=== PATIENT | female | born 1960 | race Caucasian/White ===

== ENCOUNTER 2019-10-07 20:50 | Inpatient (IN) | payer OTHER ==
[~2019-10-07] VITALS: Ht 167.6 cm; Wt 159.7 kg
--- NOTE | 2019-10-07 21:30 | NUR ---
PT BIB PA WITH A C/O PAIN AND DRAINAGE FROM SX WOUND SITE. PT HAD RLQ HERNIA REPAIR/SX 4 YEARS AGO. PT'S WOUND IS STILL OPEN AND HAS PACKING. PURULENT DRAINAGE NOTED. CULTURE TAKEN OF WOUND AND SENT TO LAB. 22G IV STARTED IN RT HAND. BLOOD WAS DRAWN AND SENT TO LAB. BLOOD CULTURES X 2 DRAWN. PT WAS ON THE BEDPABN AND A URINE SAMPLE WAS SENT TO LAB. PT WAS PLACED ON THE MONITOR AND CONTINUOUS PULSE OX.
[2019-10-07 21:51] LABS: APPEARANCE,URINE Slightly Cloudy (CLEAR); BILIRUBIN,URINE Negative (NEGATIVE); BLOOD, URINE Moderate Ery/uL (NEGATIVE); COLOR,URINE Yellow (YELLOW); KETONES,URINE Trace (NEGATIVE); LEUKOCYTE ESTERASE ,URINE Small (NEGATIVE); NITRITE, URINE Negative (NEGATIVE); PH,URINE 6.5 (5.0-8.0); PROTEIN,URINE 100 mg/dl (NEGATIVE); UGLUCOSE Negative (NEGATIVE); UROBILINOGEN,URINE 0.2 EU/dL (0.2)
[2019-10-07 21:51] LABS: BASOPHILS % (AUTO) 0.7 % (0.0-2.0); EOSINOPHILS % (AUTO) 6.8 % (0.0-6.0); HEMATOCRIT 40 % (33-45); HEMOGLOBIN 12.7 g/dL (11.5-14.8); LYMPHOCYTES # (AUTO) 1.4 /CMM (0.8-4.8); LYMPHOCYTES % (AUTO) 21.2 % (20.0-44.0); MEAN CORPUSCULAR HGB CONC 32 g/dl (31.0-36.0); MEAN CORPUSCULAR VOLUME 67 fL (82-100); MONOCYTES # (AUTO) 0.7 /CMM (0.1-1.30); MONOCYTES % (AUTO) 10.6 % (2.0-12.0); NEUTROPHILS # (AUTO) 3.9 /CMM (1.8-8.9); NEUTROPHILS % (AUTO) 60.7 % (43.0-81.0); PLATELET COUNT (AUTO) 350 /CMM (150-450); RED BLOOD CELL COUNT(AUTO) 5.86 MIL/uL (4.0-5.2); WHITE BLOOD COUNT (AUTO) 6.5 K/uL (4.3-11.0)
[2019-10-07 22:04] LABS: CALCIUM, SERUM 9.1 mg/dL (8.5-10.1); CREATININE 0.9 mg/dL (0.6-1.3); POTASSIUM 3.1 mmol/L (3.5-5.1)
[2019-10-07 22:05] LABS: BACTERIA,URINE Few /HPF (None Seen); SQUAMOUS EPITHELIAL CELL,UR Few /HPF (None Seen)
--- NOTE | 2019-10-07 22:06 | NUR ---
PT REC'D A CUP OF WATER AND IS TOLERATING PO WELL.
[2019-10-07 22:10] LABS: ALBUMIN 2.5 g/dL (3.4-5.0); BILIRUBIN,DIRECT 0.1 mg/dL (0.0-0.2); BILIRUBIN,TOTAL 0.5 mg/dL (0.2-1.0); TOTAL PROTEIN, SERUM 7.1 g/dL (6.4-8.2)
[2019-10-07 23:02] LABS: ALBUMIN 2.5 g/dL (3.4-5.0); BILIRUBIN,DIRECT 0.2 mg/dL (0.0-0.2); BILIRUBIN,TOTAL 0.5 mg/dL (0.2-1.0); TOTAL PROTEIN, SERUM 6.9 g/dL (6.4-8.2)
[2019-10-07] MEDS ORDERED: ONDANSETRON HCL/PF 4 MG/2 ML VIAL ONE (23:06)
[2019-10-07] MEDS ORDERED: MORPHINE SULFATE INJ 4 MG/ML DISP.SYRIN ONE (23:06)
--- NOTE | 2019-10-07 23:10 | NUR ---
PT'S SISTER, NATIVIDAD, CALLED AND WANTS TO BE CALLED WITH UPDATES AND STATED THAT SHE CAN BE CALLED FOR ANYTHING FOR HER SISTER. NATIVIDAD'S CELL: NATIVIDAD'S ALT #:
[2019-10-07] MEDS ORDERED: MORPHINE SULFATE INJ 10 MG/ML DISP.SYRIN IV ONE (23:30)
[2019-10-07] MEDS ORDERED: ONDANSETRON HCL/PF - ER 4 MG/2 ML VIAL IV ONE (23:30)
[2019-10-08] MEDS ORDERED: ACETAMINOPHEN 325 MG TABLET PO PRN (00:30)
[2019-10-08] MEDS ORDERED: MAGNESIUM HYDROXIDE 30 ML UDC PO PRN (00:30)
[2019-10-08] MEDS ORDERED: VANCOMYCIN 1 GM in IV D5W 250 ML IV ONE (00:30)
[2019-10-08] MEDS ORDERED: ZOLPIDEM TARTRATE 5 MG TABLET PO PRN (00:30)
[2019-10-08] MEDS ORDERED: CEFEPIME 1 GM in IV D5W 50 ML IV SCH (00:30)
[2019-10-08] MEDS ORDERED: MAG HYDROX/AL HYDROX/SIMETH 30 ML UDC PO PRN (00:30)
[2019-10-08] MEDS ORDERED: Z GUARD REMEDY 2 OZ OINT TP PRN (00:30)
--- NOTE | 2019-10-08 00:33 | NUR ---
PT WAS TAKEN OFF THE BEDPAN. PT REQUESTED TO HAVE A HAIDER CATH. NOTIFIED. NO NEW ORDERS GIVEN AT THIS TIME.
[2019-10-08] MEDS ORDERED: VANCOMYCIN 2 GM in IV NS 0.9% 500 ML IV ONE (01:00)
--- NOTE | 2019-10-08 01:05 | NUR ---
SHANNAN'S SISTER, NATIVIDAD, CALLED FOR AN UPDATE.
--- NOTE | 2019-10-08 01:29 | NUR ---
REPORT GIVEN TO HENRIQUE TREJO
[2019-10-08 01:50] VITALS: BP 118/71
[2019-10-08] MEDS: HYDROCODONE/APAP 5/325MG 1 EACH TABLET PO PRN ×4 (02:02→20:15)
[2019-10-08] MEDS: IV NS 0.9% 1,000 ML IV PRN ×2 (02:22→17:25)
[2019-10-08] MEDS ORDERED: VANCOMYCIN 1 GM VIAL ONE ×2 (02:26→02:28)
[2019-10-08] MEDS ORDERED: CEFEPIME 1 GM VIAL ONE (02:50)
[2019-10-08] MEDS: MORPHINE SULFATE INJ 2 MG/ML DISP.SYRIN IV PRN ×5 (03:54→22:14)
[2019-10-08] MEDS ORDERED: [UNRECOGNIZED DRUG - CODE] PO (04:13)
[2019-10-08] MEDS ORDERED: MAG30ORA GT (04:13)
[2019-10-08] MEDS ORDERED: FAMO40TA7 PO (04:13)
[2019-10-08] MEDS ORDERED: CRAN500C5 PO (04:13)
[2019-10-08] MEDS ORDERED: GABA-532 PO (04:13)
[2019-10-08] MEDS ORDERED: ACET325T53 PO (04:13)
[2019-10-08] MEDS ORDERED: HYDR-4354 PO (04:13)
[2019-10-08] MEDS ORDERED: AMLO5TAB9 PO (04:13)
[2019-10-08] MEDS ORDERED: MAGN400O6 PO (04:13)
[2019-10-08] MEDS ORDERED: CLON0.1T PO (04:13)
[2019-10-08] MEDS ORDERED: ASCO500C18 PO (04:13)
[2019-10-08] MEDS ORDERED: PANT40TA2 PO (04:13)
[2019-10-08] MEDS ORDERED: DULO20CA PO (04:13)
[2019-10-08] MEDS ORDERED: DOCU-160 PO (04:13)
[2019-10-08] MEDS ORDERED: MULT-213 PO (04:13)
[2019-10-08] MEDS ORDERED: ONDA4TAB11 PO (04:13)
[2019-10-08] MEDS ORDERED: LOPE2CAP PO (04:13)
[2019-10-08] MEDS ORDERED: HYDR-4384 PO (04:13)
[2019-10-08] MEDS ORDERED: ZINC56.7 TP (04:13)
--- NOTE | 2019-10-08 05:02 | NUR ---
MS/RN AT 0146 RECEIVED PATIENT FROM [facility] VIA [facility]. PATIENT WAS AWAKE, ALERT, ORIENTED, WITH C/O PAIN IN SURGICAL SITE IN THE ABDOMEN 05/15, MEDICATED WITH NORCO 1 TAB PO MORPHINE WAS NOT YET DUE, MADE COMFORTABLE IN BED, POSITIONED TO COMFORT, ADMISSION DONE PER PROTOCOL, PHYSICAL ASSESSMENT DONE, BUT PATIENT REFUSED BOTH FEET TO BED ASSESSED, REFUSED TO REMOVE HER SOCKS, PHOTOS WERE TAKEN, PLAN OF CARE DISCUSSED WITH THE PATIENT AND VERBALIZED UNDERSTANDING AND AGREEMENT TO THE PLAN OF CARE, TAUGHT THE USE OF CALL LIGHT AND PLACED IT AT BEDSIDE WITHIN REACH, ADMISSION ORDERS WERE CARRIED OUT. PRESENTLY, PATIENT IS NOW SLEEPING, APPEAR COMFORTABLE, NO SIGNS OF DISTRESS NOTED, CALL LIGHT IN REACH. WILL MONITOR.
--- NOTE | 2019-10-08 06:12 | NUR ---
MS2/RN PATIENT APPEAR SLEEPING, APPEAR COMFORTABLE, NO DISTRESS NOTED, CALL LIGHT IN REACH, ALL NEEDS ATTENDED AT THIS TIME, WILL CONTINUE TO MONITOR.
[2019-10-08] MEDS ORDERED: FEE PK DOSING 1 MIN EA MC ONE ×2 (07:11→14:16)
--- NOTE | 2019-10-08 07:43 | NUR ---
MS/RN NOTE THE PATIENT IS RECEIVED IN BED. ALERT AND ORIENTED X4. IN ROOM AIR AND DENIES SOB. RESPIRATION REGULAR AND UNLABORED. COMPLAINS OF ABDOMINAL PAIN 3/ BUT DOES NOT WANT TO TAKE PAIN MEDICATION AT THIS TIME. NOTED ABDOMINAL DRESSING ON. NO DISCHARGE NOTED. RIGHT HAND G 22 PATENT AND NS INFUSING AT 75ML/HR AND NO S/S INFILTRATION NOTED. BED LOW AND LOCKED. SIDE RAILS UP X3. CALL LIGHT WITHIN REACH. WILL CONTINUE TO MONITOR.
[2019-10-08 08:00] VITALS: BP 128/79
--- NOTE | 2019-10-08 08:21 | NUR ---
WOUND CARE CONSULT: PT TO BE FOLLOWED BY SURGICAL TEAM FOR WOUND TREATMENT. DEFER TO SURGICAL TEAM FOR WOUND TREATMENT PLAN. PT REFUSED BARIATRIC BED AND STATES IS ABLE TO TURN AND REPOSITION IN BED WITH ASSISTANCE. PT IS INCONTINENT AT THIS TIME. RECOMMENDATIONS MADE FOR SKIN PROTECTION. DISCUSSED WITH NURSING STAFF. WILL SEE PRN. CURRENT DUNIA SCORE IS 16.
[2019-10-08] MEDS ORDERED: ZINC OXIDE 56.7 GM TUBE TP PRN (14:00)
[2019-10-08] MEDS ORDERED: CLONIDINE HCL 0.1 MG TABLET PO PRN (14:00)
[2019-10-08] MEDS ORDERED: DOCUSATE SODIUM 100 MG CAPSULE PO PRN (14:00)
[2019-10-08] MEDS ORDERED: ALBUTEROL FS 2.5 MG/0.5 ML VIAL.NEB NEB PRN (14:00)
[2019-10-08] MEDS: CEFEPIME 1 GM in IV D5W 50 ML IV SCH (14:37)
[2019-10-08] MEDS: AMLODIPINE BESYLATE 5 MG TABLET PO SCH (15:09)
[2019-10-08] MEDS: DULOXETINE HCL 20 MG CAPSULE.DR PO SCH (15:09)
[2019-10-08 16:00] VITALS: BP 121/60
[2019-10-08] MEDS: GABAPENTIN 100 MG CAPSULE PO SCH (17:25)
[2019-10-08] MEDS: DAKINS QUARTER STRENGTH (0.125%) 480 ML BOTTLE TOP SCH (17:26)
--- NOTE | 2019-10-08 18:34 | NUR ---
MS/RN NOTE THE PATIENT IS IN BED. ALERT AND ORIENTED X4. IN ROOM AIR AND SATURATION IS AT 92%. DENIES SOB. RESPIRATION REGULAR AND UNLABORED. DENIES PAIN AT THIS TIME. THE PATIENT IN NO APPARENT DISTRESS. RIGHT HAND G 22 PATENT AND NS INFUSING AT 75ML/HR AND NO S/S INFILTRATION NOTED. BED LOW AND LOCKED. SIDE RAILS UP X3. CALL LIGHT WITHIN REACH. WILL ENDORSE TO MEASURER.
--- NOTE | 2019-10-08 19:45 | NUR ---
RN OPENING NOTES RECEIVED REPORT FROM DAYSNEFT RN SUN. FOUND Pt AWAKE, RESTING IN BED. NO S/S OF ACUTE DISTRESS OR SOB NOTED. Pt IS C/O PAIN AT THIS TIME, WILL CHECK WHEN THE NEXT PAIN MED IS DUE. Pt IS A/OX4, VERBAL, ABLE TO MAKE NEEDS KNOWN. IV ACCESS ON RHAND #22G, NS @75ML/HR. SAFETY MEASURES IN PLACE. BED LOW, LOCKED, HOB ELEVATED, SIDE RAILS UP, CALL LIGHT AND BEDSIDE TABLE WITHIN REACH. BED ALARM ON. WILL CONTINUE TO MONITOR Pt's CONDITION ANS SAFETY THROUGHOUT THE NIGHT.
[2019-10-08 20:00] VITALS: BP 129/73
[2019-10-08 21:00] VITALS: BP 129/73
[2019-10-08] MEDS ORDERED: THEOPHYLLINE ANHYDROUS 200 MG TAB.SR.12H PO SCH (21:00)
[2019-10-08] MEDS: THEOPHYLLINE TAB 24HR 400 MG TAB.SR. PO SCH (22:00)
[2019-10-08] MEDS: VANCOMYCIN 1.5 GM in IV D5W 500ml IV SCH (22:03)
--- NOTE | 2019-10-08 22:18 | NUR ---
RN NOTES Pt C/O 10/10 PAIN ON ABD. REQUESTING FOR THE PRN MORPHINE PAIN MED. ADMINISTERED PRN MORPHINE 2MG.
--- NOTE | 2019-10-08 22:19 | NUR ---
RN NOTES ASKED IF I CAN CHANGE THE Pt's ABD WOUND DRESSING. Pt REFUSED, SAID NOT RIGHT NOW, I DONT WANT TO BE BOTHERED, I JUST WANT MY PAIN MED AND GO TO SLEEP.
[2019-10-09] MEDS: CEFEPIME 1 GM in IV D5W 50 ML IV SCH (01:08)
[2019-10-09] MEDS: HYDROCODONE/APAP 5/325MG 1 EACH TABLET PO PRN ×4 (01:33→20:00)
--- NOTE | 2019-10-09 01:39 | NUR ---
RN NOTES Pt REFUSED TO BE TURNED AND REPOSITIONED AT THIS TIME.
[2019-10-09] MEDS: MORPHINE SULFATE INJ 2 MG/ML DISP.SYRIN IV PRN ×3 (05:41→17:58)
[2019-10-09 06:15] LABS: BASOPHILS # (AUTO) 0.1 /CMM (0.0-0.2); BASOPHILS % (AUTO) 0.8 % (0.0-2.0); EOSINOPHILS % (AUTO) 7.9 % (0.0-6.0); HEMATOCRIT 38 % (33-45); HEMOGLOBIN 11.9 g/dL (11.5-14.8); LYMPHOCYTES # (AUTO) 1.1 /CMM (0.8-4.8); MEAN CORPUSCULAR HGB CONC 31 g/dl (31.0-36.0); MEAN CORPUSCULAR VOLUME 67 fL (82-100); MONOCYTES # (AUTO) 0.7 /CMM (0.1-1.30); MONOCYTES % (AUTO) 10.1 % (2.0-12.0); NEUTROPHILS # (AUTO) 4.3 /CMM (1.8-8.9); NEUTROPHILS % (AUTO) 64.2 % (43.0-81.0); PLATELET COUNT (AUTO) 335 /CMM (150-450); WHITE BLOOD COUNT (AUTO) 6.7 K/uL (4.3-11.0)
[2019-10-09 06:43] LABS: ALBUMIN 2.3 g/dL (3.4-5.0); BILIRUBIN,TOTAL 0.6 mg/dL (0.2-1.0); CALCIUM, SERUM 8.8 mg/dL (8.5-10.1); CREATININE 0.8 mg/dL (0.6-1.3); MAGNESIUM 1.5 mg/dL (1.8-2.4); PHOSPHORUS 3.8 mg/dL (2.5-4.9); TOTAL PROTEIN, SERUM 6.5 g/dL (6.4-8.2)
[2019-10-09 06:50] LABS: POTASSIUM 2.8 mmol/L (3.5-5.1)
--- NOTE | 2019-10-09 06:50 | NUR ---
RN CLOSING NOTES NO SIGNIFICANT CHANGES IN Pt's CONDITION. NO S/S OF ACUTE DISTRESS OR SOB NOTED DURING THE NIGHT. Pt REMAINED STABLE PER BASELINE. ALL NEEDS MET AND ATTENDED TO. SAFETY MEASURES IN PLACE. Pt RESTING IN BED. WILL ENDORSE TO DAYSHIFT RN FOR Pt's VJ.
[2019-10-09 06:54] LABS: THYROID STIMULATING HORMONE 2.552 uIU/mL (0.358-3.74)
--- NOTE | 2019-10-09 07:13 | NUR ---
RN NOTES RECEIVED CALL FROM LAB FOR K:2.8; CALLED [facility]. SPOKE WITH BARGE WORKER ARISTIDES, GAVE VERBAL ORDER FOR X1 DOSE KDUR 40MEQ. WILL PLACE ORDER AND ENDORSE TO DAYSHIFT RN.
[2019-10-09] MEDS ORDERED: POTASSIUM CHLORIDE 20 MEQ TAB.PRT.SR PO ONE ×2 (07:30→13:15)
--- NOTE | 2019-10-09 07:40 | NUR ---
MS/RN NOTE THE PATIENT IS RECEIVED IN BED. PATIENT IS ALERT AND ORIENTED X4. IN ROOM AIR AND DENIES SOB. RESPIRATION REGULAR AND UNLABORED. COMPLAINS OF ABDOMINAL PAIN 11/13. THE PATIENT WILL BE GIVEN PAIN MEDICATION NEEDED. RIGHT HAND G 22 PATENT AND NS INFUSING AT 75ML/HR AND NO S/S INFILTRATION NOTED. BED LOW AND LOCKED. SIDE RAILS UP X3. CALL LIGHT WITHIN REACH. WILL CONTINUE TO MONITOR.
[2019-10-09 08:00] VITALS: BP 120/61
[2019-10-09] MEDS: ASCORBIC ACID 500 MG TABLET PO SCH (08:04)
[2019-10-09] MEDS: FAMOTIDINE (20 MG) 20 MG TABLET PO SCH (08:04)
[2019-10-09] MEDS: AMLODIPINE BESYLATE 5 MG TABLET PO SCH (08:05)
[2019-10-09] MEDS: GABAPENTIN 100 MG CAPSULE PO SCH ×3 (08:05→17:58)
[2019-10-09] MEDS: MULTIVITAMINS,THERAGRAN 1 UDTAB TABLET PO SCH (08:05)
[2019-10-09] MEDS: DULOXETINE HCL 20 MG CAPSULE.DR PO SCH (08:05)
[2019-10-09] MEDS: THEOPHYLLINE TAB 24HR 400 MG TAB.SR. PO SCH ×2 (08:06→21:07)
[2019-10-09] MEDS: DAKINS QUARTER STRENGTH (0.125%) 480 ML BOTTLE TOP SCH (09:08)
[2019-10-09] MEDS ORDERED: CEFAZOLIN 1 GM in IV D5W 50 ML IV SCH (13:00)
[2019-10-09] MEDS: Magnesium 1GM/D5W 100ML PREMIX 100 ML IV SCH ×3 (13:20→19:59)
[2019-10-09 16:00] VITALS: BP 131/68
[2019-10-09] MEDS: VANCOMYCIN 1.5 GM in IV D5W 500ml IV SCH (16:46)
--- NOTE | 2019-10-09 18:18 | NUR ---
MS/RN NOTE THE PATIENT IS IN BED. ALERT AND ORIENTED X4. IN ROOM AIR AND SATURATION IS AT 92%. DENIES SOB. RESPIRATION REGULAR AND UNLABORED. DENIES PAIN AT THIS TIME. THE PATIENT IN NO APPARENT DISTRESS. RIGHT HAND G 22 PATENT AND MEDICATION INFUSING PER ORDER. ABDOMINAL DRESSING CHANGE DONE PER ORDER. THE PATIENT TOLERATED DRESSING CHANGE WELL. BED LOW AND LOCKED. SIDE RAILS UP X3. CALL LIGHT WITHIN REACH. WILL ENDORSE TO STRIP CATCHER. Addendum: 10/09/19 at 1837 by ALEJANDRA REYNOLDS RN MS/RN NOTE 3RD BAG OF MAGNESIUM IS ENDORSE TO STRIP CATCHER TO ADMINISTER.
--- NOTE | 2019-10-09 19:20 | NUR ---
RECEIVED PT IN BED A/O X 3 WATCHING TV STABLE AND NOT IN DISTRESS.SAFETY MEASURES AT ALL TIMES. WILL CONT TO MONITOR.
[2019-10-09 20:00] VITALS: BP 119/73
[2019-10-09] MEDS: CEPHALEXIN MONOHYDRATE 250 MG CAPSULE PO SCH (21:07)
[2019-10-10] MEDS: MORPHINE SULFATE INJ 2 MG/ML DISP.SYRIN IV PRN ×3 (01:36→16:31)
[2019-10-10] MEDS ORDERED: VANCOMYCIN 1.5 GM in IV D5W 500ml IV SCH (05:00)
[2019-10-10] MEDS: HYDROCODONE/APAP 5/325MG 1 EACH TABLET PO PRN ×4 (05:04→23:29)
--- NOTE | 2019-10-10 06:24 | NUR ---
PT SLEPT WELL, WOUND CARE ORDERED. GOOD SKIN CARE AT ALL TIMES. STABLE, MONITORED FOR PAIN. NEEDS ATTENDED AND ANTICIPATED, KEPT CLEAN, DRY AND COMFORTABLE. AM CARE RENDERED. ASSISTED REPOSITION EVERY 2 HOURS. OFFLOAD HEELS AND ELBOWS. SAFETY MEASURES AT ALL TIMES. WILL ENDORSE TO NEXT SHIFT.
[2019-10-10 06:31] LABS: CALCIUM, SERUM 8.8 mg/dL (8.5-10.1); CREATININE 0.8 mg/dL (0.6-1.3)
--- NOTE | 2019-10-10 08:00 | NUR ---
MS/RN OPENING NOTES RECEIVED THE PATIENT ON BED. ALERT AND ORIENTED X4. IN ROOM AIR AND SATURATION IS AT 96%. NO SOB NOTED. RESPIRATION REGULAR AND UNLABORED. THE PATIENT IN NO APPARENT DISTRESS. RIGHT HAND G 22 PATENT AND INTACT. BED LOW AND LOCKED. SIDE RAILS UP X3. CALL LIGHT WITHIN REACH. WILL CONTINUE TO MONITOR.
[2019-10-10] MEDS: AMLODIPINE BESYLATE 5 MG TABLET PO SCH (08:19)
[2019-10-10] MEDS: FAMOTIDINE (20 MG) 20 MG TABLET PO SCH (08:20)
[2019-10-10] MEDS: ASCORBIC ACID 500 MG TABLET PO SCH (08:20)
[2019-10-10] MEDS: DULOXETINE HCL 20 MG CAPSULE.DR PO SCH (08:20)
[2019-10-10] MEDS: MULTIVITAMINS,THERAGRAN 1 UDTAB TABLET PO SCH (08:20)
[2019-10-10] MEDS: GABAPENTIN 100 MG CAPSULE PO SCH ×3 (08:20→16:26)
[2019-10-10] MEDS: THEOPHYLLINE TAB 24HR 400 MG TAB.SR. PO SCH ×2 (09:42→21:01)
[2019-10-10] MEDS: CEPHALEXIN MONOHYDRATE 250 MG CAPSULE PO SCH ×3 (09:42→16:27)
[2019-10-10] MEDS: DAKINS QUARTER STRENGTH (0.125%) 480 ML BOTTLE TOP SCH (09:45)
[2019-10-10] MEDS ORDERED: POTASSIUM CHLORIDE 20 MEQ TAB.PRT.SR PO SCH ×2 (10:00→10:30)
--- NOTE | 2019-10-10 10:08 | NUR ---
MS/RN NOTES PATIENT HAVE CT SCAN ABDOMEN WITH CONTRAST TODAY, PATIENT HAVE ALLERGY TO SHELLFISH COMPUTER DRAFTER VERBALIZED THAT ITS OK TO DO THE CT SCAN ABDOMEN WITH CONTRAST.
[2019-10-10] MEDS ORDERED: POTASSIUM CHLORIDE 20 MEQ TAB.PRT.SR PO ONE (10:30)
--- NOTE | 2019-10-10 10:36 | NUR ---
MS/RN NOTES RADIOLOGIST UCHE IS OK FOR CT SCAN ABDOMEN PELVIS WITH CONTRAST. PATIENT HAVE ALLERGY TO SHELLFISH.
--- NOTE | 2019-10-10 15:05 | NUR ---
Dr. Abel called re: CT order. Made aware re: behavioral health technician. msg. "Pt. very obese and may not fit thru gantry". Called CT, spoke with Agusto and relayed Dr. Abel's order/msg. to try to do the test. Primary Nurse aware.
[2019-10-10] MEDS ORDERED: CT SWABBABLE VALVE TRANS SET 1 EA INFUS.SET MC ONE (15:20)
[2019-10-10] MEDS ORDERED: IOHEXOL-300 100 ML VIAL IV ONE (15:20)
[2019-10-10] MEDS ORDERED: IV NS 0.9% 250 ML IV ONE (15:21)
[2019-10-10 16:00] VITALS: BP 130/74
--- NOTE | 2019-10-10 19:04 | NUR ---
MS/RN CLOSING NOTES PATIENT IS ALERT AND ORIENTED X 4. DENIES PAIN AT THIS TIME. NO RESPIRATORY DISTRESS NOTED. SEEN AND EXAMINED BY MD WITH ORDERS MADE AND CARRIED OUT. ALL DUE MEDS WAS GIVEN. KEPT PATIENT CLEAN AND DRY. SAFETY PRECAUTION IN PLACE. DRESSING CHANGED, DRY AND INTACT. BED IN LOWEST POSITION. SIDE RAILS UP X2. CALL LIGHT WITH REACH. WILL ENDORSED TO CANDLE WRAPPING MACHINE OPERATOR FOR VJ.
--- NOTE | 2019-10-10 19:39 | NUR ---
RECEIVED PT IN BED A/O X 3 AWAKE, NO C/O PAIN. STABLE AND NOT IN DISTRESS.SAFETY MEASURES AT ALL TIMES. WILL CONT TO MONITOR.
[2019-10-10 20:00] VITALS: BP 123/69
[2019-10-10] MEDS: ONDANSETRON HCL/PF 4 MG/2 ML VIAL IVP PRN (23:34)
[2019-10-11] MEDS: HYDROCODONE/APAP 5/325MG 1 EACH TABLET PO PRN ×4 (04:17→18:38)
[2019-10-11] MEDS: ONDANSETRON HCL/PF 4 MG/2 ML VIAL IVP PRN (06:00)
--- NOTE | 2019-10-11 06:34 | NUR ---
NO SIGNIFICANT CHANGES THROUGHOUT THE SHIFT. SLEPT WELL. STABLE, AM CARE RENDERED. MONITORED FOR PAIN. NEEDS ATTENDED AND ANTICIPATED, KEPT CLEAN, DRY AND COMFORTABLE. GOOD SKIN CARE. ASSISTED REPOSITION EVERY 2 HOURS. OFFLOAD HEELS AND ELBOWS. SAFETY MEASURES AT ALL TIMES. WILL ENDORSE TO NEXT SHIFT.
[2019-10-11 07:22] LABS: CALCIUM, SERUM 8.8 mg/dL (8.5-10.1); CREATININE 0.7 mg/dL (0.6-1.3); POTASSIUM 3.2 mmol/L (3.5-5.1)
--- NOTE | 2019-10-11 07:25 | NUR ---
M/S RN NOTES PATIENT AWAKE IN BED, NO RESPIRATORY DISTRESS, NO C/O PAIN AT THIS TIME. SKIN WARM TO TOUCH, IV ACCESS SITE ON THE RIGHT HAND #22G, INTACT AND PATENT. DRESSING ON THE ABDOMEN INTACT, WILL DO WOUND TX AND DRESSING CHANGE ORDERED. PATIENT'S NEEDS ATTENDED, BED ON LOWEST LOCKED POSITION, CALL LIGHT WITHIN REACH, WILL CONTINUE TO MONITOR.
[2019-10-11 07:30] VITALS: BP_SYST 138; BP_SYST 139; BP_DIAS 65; BP_DIAS 75
[2019-10-11] MEDS: FAMOTIDINE (20 MG) 20 MG TABLET PO SCH (08:02)
[2019-10-11] MEDS: THEOPHYLLINE TAB 24HR 400 MG TAB.SR. PO SCH ×2 (08:02→21:06)
[2019-10-11] MEDS: CEPHALEXIN MONOHYDRATE 250 MG CAPSULE PO SCH ×3 (08:03→17:19)
[2019-10-11] MEDS: MULTIVITAMINS,THERAGRAN 1 UDTAB TABLET PO SCH (08:03)
[2019-10-11] MEDS: ASCORBIC ACID 500 MG TABLET PO SCH (08:03)
[2019-10-11] MEDS: DULOXETINE HCL 20 MG CAPSULE.DR PO SCH (08:04)
[2019-10-11] MEDS: GABAPENTIN 100 MG CAPSULE PO SCH ×3 (08:04→17:19)
[2019-10-11] MEDS: AMLODIPINE BESYLATE 5 MG TABLET PO SCH (08:09)
[2019-10-11] MEDS: DAKINS QUARTER STRENGTH (0.125%) 480 ML BOTTLE TOP SCH (08:16)
[2019-10-11] MEDS: POTASSIUM CHLORIDE 20 MEQ TAB.PRT.SR PO SCH ×2 (11:59→12:50)
[2019-10-11] MEDS: LORAZEPAM 1 MG TABLET PO PRN ×2 (12:50→19:21)
--- NOTE | 2019-10-11 14:00 | NUR ---
M/S RN NOTES PATIENT HAVING LOOSE STOOL X3, INFORMED MD AND PER MD, ORDER OF IMODIUM 2MG Q4H PRN FOR DIARRHEA. WILL ADMINISTER MEDICATION AND WILL CONTINUE TO MONITOR PATIENT.
[2019-10-11 16:00] VITALS: BP 138/75
--- NOTE | 2019-10-11 18:50 | NUR ---
M/S RN NOTES PATIENT AWAKE IN BED, NO RESPIRATORY DISTRESS, C/O PAIN ON THE LOWER BACK 02/12, GAVE NORCO ORDERED, WILL REASSESS PAIN LEVEL. SKIN WARM TO TOUCH, IV ACCESS SITE INTACT AND PATENT. PATIENT'S NEEDS ATTENDED, BED ON LOWEST LOCKED POSITION, CALL LIGHT WITHIN REACH. WILL CONTINUE TO MONITOR.
--- NOTE | 2019-10-11 19:19 | NUR ---
RECEIVED PT IN BED A/O X 3 WOUND DRESSING INTACT. STABLE AND NOT IN DISTRESS.SAFETY MEASURES AT ALL TIMES. WILL CONT TO MONITOR.
[2019-10-11 20:00] VITALS: BP 114/83
[2019-10-12] MEDS: HYDROCODONE/APAP 5/325MG 1 EACH TABLET PO PRN ×5 (01:22→20:50)
--- NOTE | 2019-10-12 06:12 | NUR ---
NO ACUTE EVENTS THROUGHOUT THE NIGHT. PT SLEPT WELL. RESPIRATIONS EVEN AND UNLABORED. MONITORED FOR PAIN. NO S/S OF DISTRESS. NEEDS ATTENDED AND ANTICIPATED, KEPT CLEAN, DRY AND COMFORTABLE. GOOD SKIN CARE. ASSISTED REPOSITION EVERY 2 HOURS. OFFLOAD HEELS AND ELBOWS. SAFETY MEASURES AT ALL TIMES. WILL ENDORSE TO NEXT SHIFT.
[2019-10-12 07:00] LABS: CALCIUM, SERUM 8.8 mg/dL (8.5-10.1); CREATININE 0.8 mg/dL (0.6-1.3); POTASSIUM 3.4 mmol/L (3.5-5.1)
--- NOTE | 2019-10-12 07:25 | NUR ---
MS RN NOTES RECEIVED PATIENT IN BED, ALERT AND AWAKE, ORIENTED X4. NO SOB. HOB ELEVATED. DENIES ANY C/O PAIN NOR DISCOMFORT AT THIS TIME. ABD WOUND CARE DRESSING INTACT. RIGHT AXILLA IV ACCESS INTACT AND PATENT. BED IN LOWEST POSITION, LOCKED. BED ALARM ON. BED SIDERAILS UP X2. CALL LIGHT WITHIN REACH. I
[2019-10-12] MEDS: LOPERAMIDE HCL (2 MG CAP) 2 MG CAPSULE PO PRN ×4 (07:57→20:48)
[2019-10-12] MEDS: AMLODIPINE BESYLATE 5 MG TABLET PO SCH (08:06)
[2019-10-12] MEDS: LORAZEPAM 1 MG TABLET PO PRN ×2 (08:06→16:28)
[2019-10-12] MEDS: ASCORBIC ACID 500 MG TABLET PO SCH (08:06)
[2019-10-12] MEDS: DULOXETINE HCL 20 MG CAPSULE.DR PO SCH (08:06)
[2019-10-12] MEDS: FAMOTIDINE (20 MG) 20 MG TABLET PO SCH (08:06)
[2019-10-12] MEDS: GABAPENTIN 100 MG CAPSULE PO SCH ×3 (08:07→16:28)
[2019-10-12] MEDS: MULTIVITAMINS,THERAGRAN 1 UDTAB TABLET PO SCH (08:07)
[2019-10-12] MEDS: CEPHALEXIN MONOHYDRATE 250 MG CAPSULE PO SCH ×3 (08:08→16:28)
[2019-10-12] MEDS: THEOPHYLLINE TAB 24HR 400 MG TAB.SR. PO SCH ×2 (08:09→20:38)
[2019-10-12] MEDS: DAKINS QUARTER STRENGTH (0.125%) 480 ML BOTTLE TOP SCH (08:16)
[2019-10-12] MEDS ORDERED: POTASSIUM CHLORIDE 20 MEQ TAB.PRT.SR PO SCH (10:00)
[2019-10-12 16:00] VITALS: BP 120/74
--- NOTE | 2019-10-12 19:15 | NUR ---
RN medsurg opening notes Received Pt from morning nurse. Pt is resting in bed comfortably. Pt is alert and orientedX4. Respiration is normal in room air. No SOB. No S/S of distress noted. IV sites at R axilla # 22 is clean, intact, patent and SL. Abd dressing is clean, intact and dry. Safety precautions is maintained. Bed at low position, brakes locked, side rails upX2 and call light is within reach. Will continue to monitor.
--- NOTE | 2019-10-12 19:33 | NUR ---
MS RN NOTES PATIENT RESTING COMFORTABLY IN BED. ALERT AND ORIENTED X4. NO S/S OF RESPIRATORY DISTRESS. HOB ELEVATED. DENIES ANY C/O PAIN NOR DISCOMFORT AT THIS TIME. ABD WOUND CARE DONE JUAN MANUEL WELL. RIGHT AXILLA IV ACCESS INTACT AND PATENT. BED IN LOWEST POSITION, LOCKED. BED ALARM ON. CALL LIGHT WITHIN REACH. IN NO APPARENT DISTRESS.
[2019-10-12 20:00] VITALS: BP 121/68
[2019-10-12 20:27] VITALS: BP 121/68
--- NOTE | 2019-10-12 20:50 | NUR ---
RN medsurg notes Pt is complaining of pain on her abdomen and requesting pain med. Administered norco 5-325 tab/1 tab/po as ordered for pain per Pt's requested. VS is stable. Safety precautions is maintained. Will continue to monitor.
--- NOTE | 2019-10-12 22:18 | NUR ---
RN medsur notes Pt is feeling anxious and requesting ativan. Pt received ativan at 1628/Q 8 hr. Called and informed Dr. Mtz for ativan. MD order ativan 1 mg/1 tab/po/one time dose for anxiety. Order carried out. Will continue to monitor.
--- NOTE | 2019-10-12 22:28 | NUR ---
HENRIQUE valencia notes Pt is feeling anxious and requesting ativan. . Administered ativan 1 mg/1 tab/po/one time as ordered for anxiety per Pt request. Safety precautions is maintained. Will continue to monitor.
[2019-10-12] MEDS ORDERED: LORAZEPAM 1 MG TABLET PO ONE (22:30)
[2019-10-13] MEDS: HYDROCODONE/APAP 5/325MG 1 EACH TABLET PO PRN ×4 (02:33→20:40)
[2019-10-13 06:47] LABS: CALCIUM, SERUM 8.6 mg/dL (8.5-10.1); CREATININE 0.8 mg/dL (0.6-1.3); POTASSIUM 3.2 mmol/L (3.5-5.1)
--- NOTE | 2019-10-13 07:01 | NUR ---
RN medsurg closing notes Pt is resting in bed comfortably. Respiration is normal. No SOB. No S/S of distress noted. IV sites at R upper chest # 22 is clean, intact, patent and SL. Routine med was given as ordered. ABD dressing is clean, intact and dry. VS is stable. Kept Pt clean, dry and comfortable. All needs met and attended. Safety precautions is maintained. Bed at low position, brakes locked, side rails upX2 and call light is within reach. Will endorse to morning nurse for VJ.
--- NOTE | 2019-10-13 07:15 | NUR ---
MS RN NOTES RECEIVED PATIENT IN BED, ALERT AND AWAKE. NO SOB. HOB ELEVATED. SLEPT WELL THROUGHOUT THE NIGHT PE PATIENT. DENIES ANY C/O PAIN NOR DISCOMFORT AT THIS TIME. RIGHT AXILLA IV ACCESS INTACT AND PATENT. BED IN LOWEST POSITION, LOCKED. BED ALARM ON. BED SIDERAILS UP X2. CALL LIGHT WITHIN REACH.
[2019-10-13 08:10] VITALS: BP 121/70
--- NOTE | 2019-10-13 08:20 | NUR ---
MS RN NOTES PATIENT SEEN BY DR. ROWAN AND REMOVED MESH, JUAN MANUEL WELL PER DR. ROWAN AND PATIENT IS CLEARED TO RETURN TO SNF.
[2019-10-13] MEDS: MULTIVITAMINS,THERAGRAN 1 UDTAB TABLET PO SCH (09:05)
[2019-10-13] MEDS: DULOXETINE HCL 20 MG CAPSULE.DR PO SCH (09:05)
[2019-10-13] MEDS: AMLODIPINE BESYLATE 5 MG TABLET PO SCH (09:05)
[2019-10-13] MEDS: FAMOTIDINE (20 MG) 20 MG TABLET PO SCH (09:05)
[2019-10-13] MEDS: GABAPENTIN 100 MG CAPSULE PO SCH ×3 (09:05→17:17)
[2019-10-13] MEDS: ASCORBIC ACID 500 MG TABLET PO SCH (09:05)
[2019-10-13] MEDS: CEPHALEXIN MONOHYDRATE 250 MG CAPSULE PO SCH ×3 (09:06→17:17)
[2019-10-13] MEDS: LOPERAMIDE HCL (2 MG CAP) 2 MG CAPSULE PO PRN ×2 (09:06→15:19)
[2019-10-13] MEDS: LORAZEPAM 1 MG TABLET PO PRN ×2 (09:06→17:17)
[2019-10-13] MEDS: DAKINS QUARTER STRENGTH (0.125%) 480 ML BOTTLE TOP SCH (09:09)
[2019-10-13] MEDS: THEOPHYLLINE TAB 24HR 400 MG TAB.SR. PO SCH ×2 (09:20→20:34)
[2019-10-13] MEDS: POTASSIUM CHLORIDE 20 MEQ TAB.PRT.SR PO SCH ×2 (10:53→15:17)
--- NOTE | 2019-10-13 18:30 | NUR ---
MS RN NOTES ALERT AND AWAKE ORIENTED X4. NO S/S OF RESPIRATORY DISTRESS. DENIES ANY C/O PAIN NOR DISCOMFORT AT THIS TIME. ABD WOUND DRESSING INTACT. DISCHARGE ON HOLD AT THIS TIME. NO IV ACCES NOTED. IV PULLED OUT WITH CATHETER TIP INTACT, PATIENT DOES NOT WANT TO REINSERT A NEW ONE. BED IN LOWEST POSITION, LOCKED. BED ALARM ON. BED SIDERAILS UP X2. CALL LIGHT WITHIN REACH. IN NO APPARENT DISTRESS.
--- NOTE | 2019-10-13 19:00 | NUR ---
RN medsurg opening notes Received Pt from morning nurse. Pt is alert and orientedX4. Pt is laying in bed comfortably watching TV. Respiration is normal. No SOB. No S/S of distress noted. Pt does not IV access. Pt refused to have new IV inserted. Discharge on hold at this time. Abd. dressing is clean, intact and dry. Safety precautions is maintained. Bed at low position, brakes locked, side rails upX2 and call light is within reach. Will continue to monitor.
[2019-10-13 20:00] VITALS: BP 131/77
--- NOTE | 2019-10-13 20:40 | NUR ---
RN medsurparvez notes Pt is complaining of pain on her abdomen and requesting norco. Administered norco 5-325 tab/1 tab/ po as ordered for pain per pt's request. VS is stable. Will continue to monitor.
[2019-10-13 21:08] VITALS: BP 131/77
--- NOTE | 2019-10-13 21:40 | NUR ---
RN medr notes Pt is feeling anxious and crying asking for ativan. Called and informed MD to get an order for ativan. MD ordered ativan 1 mg/po/once/one time. Order read back. Order carried out. Will continue to monitor.
--- NOTE | 2019-10-13 21:50 | NUR ---
HENRIQUE valencia notes Pt is crying, feeling anxious and asking for ativan. Administered ativan 1 mg/po/once/one time as ordered for anxiety per pt request. Safety precautions is maintained. Will continue to monitor.
[2019-10-13] MEDS ORDERED: LORAZEPAM 1 MG TABLET PO ONE (22:00)
[2019-10-14] MEDS: HYDROCODONE/APAP 5/325MG 1 EACH TABLET PO PRN ×4 (02:15→15:25)
--- NOTE | 2019-10-14 07:00 | NUR ---
RN medsurg closing notes Pt is resting in bed comfortably. Pt is alert and orientedx4. Respiration is normal. No SOB. No S/S of distress noted. Pt doesn't have IV access. Pt refused to have IV access. Routine meds was given as ordered. VS is stable. Abdominal dressing is clean, intact and dry. Kept Pt clean, dry and comfortable. All needs met and attended. Safety precautions is maintained. Bed at low position, brakes locked, side rails upX2 and call light is within reach. Will endorse to morning nurse for VJ.
[2019-10-14 07:05] LABS: CALCIUM, SERUM 8.5 mg/dL (8.5-10.1); CREATININE 0.8 mg/dL (0.6-1.3); POTASSIUM 3.5 mmol/L (3.5-5.1)
[2019-10-14 08:00] VITALS: BP 121/70
--- NOTE | 2019-10-14 08:00 | NUR ---
MS RN OPENING NOTES Received Patient awake and resting in bed. A/O x 4. Patient in stable condition with no acute distress. Breathing even and unlabored on room air with no respiratory distress. Denies pain. Patient refused IV access at this time. Per Patient, "I will be discharged soon so I don't need the IV". Safety precautions in place. Bed locked and set to lowest position with side rails x 2 up. All needs rendered at this time. Call light within reach. Will continue to monitor.
[2019-10-14] MEDS: DULOXETINE HCL 20 MG CAPSULE.DR PO SCH (08:47)
[2019-10-14] MEDS: GABAPENTIN 100 MG CAPSULE PO SCH ×3 (08:47→16:02)
[2019-10-14 08:48] VITALS: BP 120/71
[2019-10-14] MEDS: FAMOTIDINE (20 MG) 20 MG TABLET PO SCH (08:48)
[2019-10-14] MEDS: ASCORBIC ACID 500 MG TABLET PO SCH (08:48)
[2019-10-14] MEDS: AMLODIPINE BESYLATE 5 MG TABLET PO SCH (08:48)
[2019-10-14] MEDS: THEOPHYLLINE TAB 24HR 400 MG TAB.SR. PO SCH (08:49)
[2019-10-14] MEDS: DAKINS QUARTER STRENGTH (0.125%) 480 ML BOTTLE TOP SCH (08:51)
[2019-10-14] MEDS: MULTIVITAMINS,THERAGRAN 1 UDTAB TABLET PO SCH (09:52)
[2019-10-14] MEDS: LOPERAMIDE HCL (2 MG CAP) 2 MG CAPSULE PO PRN ×2 (10:00→16:27)
[2019-10-14] MEDS: LORAZEPAM 1 MG TABLET PO PRN (10:00)
[2019-10-14] MEDS ORDERED: LORAZEPAM 1 MG TABLET PO ONE (16:00)
--- NOTE | 2019-10-14 17:01 | NUR ---
MS RN NOTES Report given to Arti DUENAS from [facility] at this time. Patient in stable condition. Will continue to monitor.
--- NOTE | 2019-10-14 17:32 | NUR ---
MS EMPLOYMENT OFFICER NOTES Patient discharged for [facility] at this time. Patient in stable condition. VS stable with no acute distress. Breathing even and unlabored on room air with no respiratory distress. Denies pain. No signs and symptoms of pain. Patient refused skin assessment photos. Medication reconciliation and discharge orders reviewed and explained to Patient. Patient verbalized understanding. All belongings with Patient. Patient will follow up with MD at SNF. Patient picked up by EMT Transport. Report given to Arti DUENAS.
== END 2019-10-14 17:32 | DRG 721 ==
LOC: ER 20:55 → MEDSG2 10-08 00:38
PROVIDERS: ADMIT Nurse Practitioner Acute Care; ATTEND Nurse Practitioner Acute Care
PROC: 0WPFXJZ Removal of Synthetic Substitute from Abdominal Wall, External Approach (ICD-10-PCS; principal; 2019-10-13)
DX: T81.49XA Infection following a procedure, other surgical site, initial encounter (principal); E66.2 Morbid (severe) obesity with alveolar hypoventilation; T81.31XA Disruption of external operation (surgical) wound, not elsewhere classified, initial encounter; L03.311 Cellulitis of abdominal wall; Z68.43 Body mass index [BMI] 50.0-59.9, adult; E87.6 Hypokalemia; N39.0 Urinary tract infection, site not specified; K21.9 Gastro-esophageal reflux disease without esophagitis; F32.9 Major depressive disorder, single episode, unspecified; B96.20 Unspecified Escherichia coli [E. coli] as the cause of diseases classified elsewhere; I10 Essential (primary) hypertension; L98.8 Other specified disorders of the skin and subcutaneous tissue; Y83.8 Other surgical procedures as the cause of abnormal reaction of the patient, or of later complication, without mention of misadventure at the time of the procedure; Y92.129 Unspecified place in nursing home as the place of occurrence of the external cause; J44.9 Chronic obstructive pulmonary disease, unspecified; E78.5 Hyperlipidemia, unspecified; Z87.442 Personal history of urinary calculi
CPT/HCPCS: 36415; 71045-TC; 80048-TC; 80053-TC; 80061-TC; 80076-TC; 80202-TC; 81000-TC; 83690-TC; 83735-TC; 84100-TC; 84443-TC; 85025-TC; 85730-TC; 87040-TC; 87070-TC; 87081-TC; 87086-TC; 87186-TC; 97530-TC; A6253; A6403; G0378; J0690; J0692; J2270; J2405; J3370; J3475; J7030; J7040; J7050; J7060; Q9967

== ENCOUNTER 2021-01-06 18:47 | Emergency (ER) | payer OTHER ==
[~2021-01-06] VITALS: Ht 170.2 cm; Wt 141.5 kg
[~2021-01-06 18:47] MED LIST: ACET325T53 PO; AMLO-212 PO; ASCO500C18 PO; CLON0.1T PO; CRAN500C5 PO; DOCU-160 PO; DULO20CA PO; FAMO40TA7 PO; GABA-532 PO; HYDR-4354 PO; HYDR-4384 PO; LOPE2CAP PO; MAG30ORA GT; MAGN400O6 PO; MULT-213 PO; ONDA4TAB11 PO; PANT40TA2 PO; ZINC56.713 TP; [UNRECOGNIZED DRUG - CODE] PO
--- NOTE | 2021-01-06 19:09 | NUR ---
AMBERLY FROM [facility] FOR VAGINAL BLEEDING SINCE LAST NIGHT WITH ABD PAIN & NAUSEA. PT AAOX3, VSS. RR EVEN & UNLABORED. DENIES CP, SOB, DIZZINESS AT THIS TIME. AWAITING EVAL BY ERMMarion. WILL CONT TO MONITOR.
[2021-01-06 19:25] LABS: BASOPHILS # (AUTO) 0.1 /CMM (0.0-0.2); BASOPHILS % (AUTO) 1.2 % (0.0-2.0); EOSINOPHILS % (AUTO) 3.4 % (0.0-6.0); HEMATOCRIT 36 % (33-45); HEMOGLOBIN 11.3 g/dL (11.5-14.8); LYMPHOCYTES # (AUTO) 1.9 /CMM (0.8-4.8); LYMPHOCYTES % (AUTO) 17.2 % (20.0-44.0); MEAN CORPUSCULAR HGB CONC 31 g/dl (31.0-36.0); MEAN CORPUSCULAR VOLUME 72 fL (82-100); MONOCYTES # (AUTO) 0.8 /CMM (0.1-1.30); MONOCYTES % (AUTO) 7.5 % (2.0-12.0); NEUTROPHILS # (AUTO) 7.9 /CMM (1.8-8.9); NEUTROPHILS % (AUTO) 70.7 % (43.0-81.0); PLATELET COUNT (AUTO) 630 /CMM (150-450); RED BLOOD CELL COUNT(AUTO) 5.07 MIL/uL (4.0-5.2); WHITE BLOOD COUNT (AUTO) 11.2 K/uL (4.3-11.0)
--- NOTE | 2021-01-06 20:08 | NUR ---
CALLED [id number] FOR TRANSPORT AT 2007. ON HOLD AT THIS TIME
--- NOTE | 2021-01-06 20:46 | NUR ---
CALLED [id number] FOR TRANSPORT AT 2045. STILL ON HOLD AT THIS TIME. WILL CALL ANOTHER TRANSPORT COMPANY TO TRANSPORT PT BACK TO FACILITY.
--- NOTE | 2021-01-06 20:52 | NUR ---
TRANSPORT CALLED ([facility]) ETA 30-45MIN.
--- NOTE | 2021-01-06 21:03 | NUR ---
report given to Yu DUENAS at [facility]
--- NOTE | 2021-01-06 21:41 | NUR ---
[facility] UNABLE TO TRANSPORT [place]. PER EMT, BARIATRIC GURNEY NEEDED
--- NOTE | 2021-01-06 21:43 | NUR ---
CALLED [facility] FOR TRANSPORTATION. PER LAVELL, NO S AMBULANCE AVAILABLE FOR THE NIGHT
--- NOTE | 2021-01-06 21:48 | NUR ---
[facility] ETA 0034
--- NOTE | 2021-01-06 22:56 | NUR ---
ER MD DELEON TALKING TO PT SISTER.
[2021-01-06] MEDS ORDERED: IBUPROFEN 600 MG TABLET ONE (23:14)
[2021-01-06] MEDS ORDERED: HYDROCODONE/APAP 10/325MG TABLET ONE (23:14)
[2021-01-06] MEDS: HYDROCODONE/APAP 10/325MG TABLET PO ONE (23:18)
[2021-01-06] MEDS: IBUPROFEN 600 MG TABLET PO ONE (23:18)
[2021-01-06 23:27] VITALS: BP 119/72
--- NOTE | 2021-01-07 00:42 | NUR ---
REPORT GIVEN TO AM [facility] TRANSPORT TEAM FOR VJ. AND TRANSFERRING RESPONSIBILITIES.
== END 2021-01-07 01:20 ==
LOC: ER 18:50
DX: N95.0 Postmenopausal bleeding (principal); E66.01 Morbid (severe) obesity due to excess calories; Z68.42 Body mass index [BMI] 45.0-49.9, adult; I10 Essential (primary) hypertension; K21.9 Gastro-esophageal reflux disease without esophagitis; F32.9 Major depressive disorder, single episode, unspecified; F41.9 Anxiety disorder, unspecified; D64.9 Anemia, unspecified; Z98.890 Other specified postprocedural states; Z91.013 Allergy to seafood; Z88.6 Allergy status to analgesic agent; Z79.899 Other long term (current) drug therapy
CPT/HCPCS: 36415; 76856-TC; 85025-TC

== ENCOUNTER 2021-03-11 13:56 | Inpatient (IN) | payer OTHER ==
[~2021-03-11] VITALS: Ht 200.7 cm; Wt 121.1 kg
--- NOTE | 2021-03-11 14:08 | NUR ---
TO ER BED 2, COMPLAIN OF DRAINAGE FROM WOUND S/P HERNIA REPAIR 5 YEARS AGO
[2021-03-11] MEDS ORDERED: CEFEPIME 1 GM in IV D5W 50 ML IV ONE (14:30)
[2021-03-11] MEDS ORDERED: VANCOMYCIN 1 GM in IV D5W 250 ML IV ONE ×2 (14:30→21:30)
[2021-03-11] MEDS ORDERED: IV NS 0.9% 1,000 ML BAG IV ONE (14:30)
--- NOTE | 2021-03-11 14:44 | NUR ---
REFUSED IV INSERTION, REFUSED BLOOD DRAW, CALLED FOR MD ELLE AWARE
[2021-03-11] MEDS ORDERED: ALBU6.7H9 IH (14:49)
[2021-03-11] MEDS ORDERED: HYDR-3980 PO (14:49)
[2021-03-11] MEDS ORDERED: PREG50CA PO (14:49)
[2021-03-11] MEDS ORDERED: NA P133E RC (14:49)
[2021-03-11] MEDS ORDERED: BISA10SU11 RC (14:49)
[2021-03-11] MEDS ORDERED: LORA-259 PO (14:49)
[2021-03-11] MEDS ORDERED: AMIN887L PO (14:49)
[2021-03-11] MEDS ORDERED: DIPH1TAB PO (14:49)
[2021-03-11] MEDS ORDERED: MECL-159 PO (14:49)
--- NOTE | 2021-03-11 14:55 | NUR ---
SPOKE TO GRANT, MIDLINE NURSE WILL COME AT 6PMMD AWARE
--- NOTE | 2021-03-11 14:59 | NUR ---
NETEZZA ARCHITECT AT BEDSIDE
--- NOTE | 2021-03-11 15:18 | NUR ---
[facility] CALLED TAKER OFF PAGED.
[2021-03-11] MEDS ORDERED: MAGNESIUM HYDROXIDE 30 ML UDC PO PRN ×2 (15:30→16:00)
[2021-03-11] MEDS ORDERED: MAG HYDROX/AL HYDROX/SIMETH 30 ML UDC PO PRN (15:30)
[2021-03-11] MEDS ORDERED: ONDANSETRON HCL/PF 4 MG/2 ML VIAL IVP PRN (15:30)
[2021-03-11] MEDS ORDERED: Z GUARD REMEDY 2 OZ OINT TP PRN (15:30)
[2021-03-11] MEDS ORDERED: MECLIZINE HCL 25 MG TABLET PO PRN (16:00)
[2021-03-11] MEDS ORDERED: BISACODYL SUPP (10 MG) 10 MG/SUPP.RECT SUPP.RECT RC PRN (16:00)
[2021-03-11] MEDS ORDERED: ACETAMINOPHEN 325 MG TABLET PO PRN (16:00)
--- NOTE | 2021-03-11 16:20 | NUR ---
PCR SWAB DONE AND SENT TO LAB
--- NOTE | 2021-03-11 17:34 | NUR ---
SISTER NATIVIDAD [phone] CALLED FOR AN UPDATE
--- NOTE | 2021-03-11 17:57 | NUR ---
CALLED LAB SPOKE TO UMER TO PIG MACHINE SUPERVISOR BLOOD SPECIMEN
[2021-03-11] MEDS ORDERED: HYDROCODONE/APAP 10/325MG TABLET ONE (18:57)
--- NOTE | 2021-03-11 19:30 | NUR ---
RECEIVED REPORT FOR VJ, PATIENT IN BED RESTING, VSS, PATIENT CONNECTED TO MONITOR, PATIENT IN NO ACUTE DISTRESS.
[2021-03-11 19:56] LABS: BASOPHILS # (AUTO) 0.1 K/uL (0.0-0.2); BASOPHILS % (AUTO) 0.6 % (0.0-2.0); EOSINOPHILS % (AUTO) 0.9 % (0.0-6.0); HEMATOCRIT 42 % (33-45); HEMOGLOBIN 13.1 g/dL (11.5-14.8); LYMPHOCYTES # (AUTO) 0.8 K/uL (0.8-4.8); LYMPHOCYTES % (AUTO) 8.2 % (20.0-44.0); MEAN CORPUSCULAR HGB CONC 32 g/dl (31.0-36.0); MEAN CORPUSCULAR VOLUME 68 fL (82-100); MONOCYTES # (AUTO) 0.9 K/uL (0.1-1.30); NEUTROPHILS # (AUTO) 8.2 K/uL (1.8-8.9); NEUTROPHILS % (AUTO) 81.3 % (43.0-81.0); PLATELET COUNT (AUTO) 359 K/uL (150-450); RED BLOOD CELL COUNT(AUTO) 6.13 MIL/uL (4.0-5.2); WHITE BLOOD COUNT (AUTO) 10.1 K/uL (4.3-11.0)
[2021-03-11 20:11] LABS: ALANINE AMINOTRANSFERASE 6 U/L (12-78); ALBUMIN 2.5 g/dL (3.4-5.0); ALKALINE PHOSPHATASE 113 U/L (46-116); ASPARTATE AMINOTRANSFERASE 13 U/L (15-37); BILIRUBIN,DIRECT 0.2 mg/dL (0.0-0.2); CALCIUM, SERUM 8.3 mg/dL (8.5-10.1); CARBON DIOXIDE 29 mmol/L (21-32); CHLORIDE 95 mmol/L (98-107); CREATININE 0.9 mg/dL (0.6-1.3); GLUCOSE 133 mg/dL (74-106); SODIUM SERUM 134 mmol/L (136-145); TOTAL PROTEIN, SERUM 7.3 g/dL (6.4-8.2); UREA NITROGEN, BLOOD 16 mg/dL (7-18)
[2021-03-11 20:14] LABS: POTASSIUM 2.1 mmol/L (3.5-5.1)
[2021-03-11] MEDS ORDERED: POTASSIUM CHLORIDE 20 MEQ TAB.PRT.SR PO ONE ×2 (20:30→20:40)
--- NOTE | 2021-03-11 20:52 | NUR ---
REPORT GIVEN TO HENRIQUE LINDQUIST
[2021-03-11] MEDS: THEOPHYLLINE TAB 24HR 400 MG TAB.SR. PO SCH (21:00)
[2021-03-11] MEDS ORDERED: POTASSIUM CHLORIDE 10 MEQ/50 ML PREMIXED IVPB FOR PERIPHERAL LINE IV ONE (21:00)
[2021-03-11] MEDS ORDERED: THEOPHYLLINE ANHYDROUS 100 MG TAB.SR.12H PO SCH (21:00)
--- NOTE | 2021-03-11 21:24 | NUR ---
PATIENT TRANSFERRED UNDR ACLS
[2021-03-11] MEDS ORDERED: VANCOMYCIN 1 GM VIAL ONE (21:49)
[2021-03-11] MEDS: IV NS 0.9% 1,000 ML IV PRN (21:52)
--- NOTE | 2021-03-11 22:00 | NUR ---
MS/RN ADMITTING NOTE RECEIVED REPORT FROM RN [facility]. PATIENT ARRIVED TO UNIT VIA GURNEY AND 2 STAFF MEMBERS. PATIENT IS ALERT AND ORIENTED X 3. ABLE TO MAKE NEEDS KNOWN. C/O ABDOMINAL WOUND PAIN - WILL ADMINISTER PRN PAIN MEDICATION. CONTINUES ON ROOM AIR WITH NO S/SX OF RESPIRATORY DISTRESS NOTED. PATIENT BEING ADMITTED FOR ABDOMINAL WALL CELLULITIS. SKIN CHECK PERFORMED ON ADMISSION WITH MULTIPLE SKIN ISSUES INCLUDING ABDOMINAL WOUND, ABDOMINAL LACERATIONS X 2, SACRAL DISCOLORATION. PICTURES TAKEN AND PLACED IN CHART. WOUND CONSULT ORDERED. PATIENT HAS IV ACCESS TO RIGHT UPPER ARM MIDLINE #18G INTACT, PATENT AND SALINE LOCKED. PATIENT TO START IVF NS @ 75ML/HR. PATIENT TO START MULTIPLE IV ABX. PATIENT NOTED WITH HYPOKALEMIA. ORDER IN PLACE FOR 40MEQ IV. VS ON ADMISSION: BP 102/46 HR 77 RR 18 T 98.1 O2 SAT 99% ON ROOM AIR. PATIENT ORIENTED TO ROOM, CALL LIGHT AND UNIT. CALL LIGHT WITHIN REACH. ASPIRATION, FALL AND SAFETY PRECAUTIONS MAINTAINED. WILL CONTINUE TO MONITOR.
[2021-03-11] MEDS: ENOXAPARIN SODIUM 40 MG/0.4 ML DISP.SYRIN SQ SCH (22:06)
[2021-03-11] MEDS: PREGABALIN 25 MG CAPSULE PO SCH (22:20)
[2021-03-11] MEDS: HYDROCODONE/APAP 5/325MG TABLET PO PRN (22:23)
[2021-03-11 22:26] LABS: BAND % (MANUAL) 1 % (0.0-5.0); LYMPHOCYTES % (MANUAL) 5 % (16-48); NEUTROPHILS % (MANUAL) 86 (42-76)
[2021-03-11 22:27] LABS: BASOPHILS % (MANUAL) 0 % (0.0-2.0); EOSINOPHILS % (MANUAL) 1 % (0-4); MONOCYTES % (MANUAL) 7 % (0-11.0)
[2021-03-11] MEDS ORDERED: IV NS 0.9% 250 ML IV PRN (22:30)
--- NOTE | 2021-03-11 22:30 | NUR ---
MS/RN NOTE PATIENT REFUSING HAIDER CATHETER AT THIS TIME. EXPLAINED RISKS OF REFUSING HAIDER CATHETER. EXPLAINED NEED FOR URINE SAMPLE WITH PATIENT CONTINUING TO REFUSE X 3 ATTEMPTS. PATIENT STATES SHE WILL LET RN PLACE HAIDER IN AM. WILL CONTINUE TO MONITOR.
--- NOTE | 2021-03-11 22:48 | NUR ---
MS/RN NOTE PATIENT REFUSING IV POTASSIUM AT THIS TIME. NOTIFIED ELECTRIC DRILL OPERATOR MD ANTONIO WITH NEW ORDER FOR POTASSIUM CHLORIDE 40MEQ PO Q4HRS X 3 DOSES. ORDERS INPUTTED AND FIRST DOSE GIVEN. WILL CONTINUE TO MONITOR.
[2021-03-11 23:59] VITALS: BP 102/46
[2021-03-12] MEDS ORDERED: PIPERACILLIN /TAZOBACTAM 3.375 G VIAL IV ONE ×2 (00:46→05:54)
[2021-03-12] MEDS: POTASSIUM CHLORIDE 20 MEQ TAB.PRT.SR PO SCH ×2 (00:49→06:07)
[2021-03-12] MEDS: PIPERACILLIN /TAZOBACTAM 3.375 G in IV D5W 50 ML IV SCH ×2 (00:49→06:08)
[2021-03-12] MEDS: ACETAMINOPHEN 325 MG TABLET PO PRN (01:00)
[2021-03-12] MEDS: LORAZEPAM 1 MG TABLET PO PRN ×3 (01:30→18:09)
--- NOTE | 2021-03-12 01:34 | NUR ---
MS/RN NOTE PATIENT CRYING, MOANING, VISIBLY UPSET AND ANXIOUS. PRN ATIVAN ADMINISTERED PER MD ORDER WITH POSITIVE EFFECT.
[2021-03-12] MEDS: HYDROCODONE/APAP 5/325MG TABLET PO PRN (02:37)
[2021-03-12] MEDS: DIPHENOXYLATE HCL/ATROP SULF 1 UDTAB TABLET PO PRN ×3 (02:48→18:08)
--- NOTE | 2021-03-12 04:41 | NUR ---
MS/RN NOTE WOUND CULTURE COLLECTED, LABELLED AND SENT TO LAB.
--- NOTE | 2021-03-12 04:42 | NUR ---
MS/RN NOTE PATIENT CONTINUING TO REFUSE HAIDER CATHETER. STATING SHE IS IN TOO MUCH PAIN AND DOESN'T 'WANT IT'. PATIENT STATES SHE IS CONTINENT AND ABLE TO GIVE A CLEAN CATCH URINE SAMPLE. WILL ATTEMPT TO COLLECT URINE SAMPLE.
[2021-03-12] MEDS: PREGABALIN 25 MG CAPSULE PO SCH ×3 (05:00→21:21)
--- NOTE | 2021-03-12 06:10 | NUR ---
MS/RN NOTE PATIENT CURRENTLY RESTING IN BED. ALERT AND ORIENTED X 3. ABLE TO MAKE NEEDS KNOWN. DENIES PAIN AT THIS TIME. IV ACCESS TO RIGHT UPPER ARM MIDLINE INTACT AND PATENT. CONTINUES ON IV ABX. CONTINUES ON IVF NS @ 75ML/HR. ABDOMINAL WOUND DRESSING CHANGED THIS SHIFT AND WOUND CULTURE COLLECTED. DRESSING IS CLEAN, DRY AND INTACT. CALL LIGHT WITHIN REACH. ASPIRATION, FALL AND SAFETY PRECAUTIONS MAINTAINED. WILL ENDORSE PLAN OF CARE TO ONCOMING SHIFT.
[2021-03-12] MEDS: HYDROCODONE/APAP 10/325MG TABLET PO PRN ×2 (06:50→12:59)
--- NOTE | 2021-03-12 07:40 | NUR ---
RN OPENING NOTES RECEIVED PATIENT AWAKE IN BED. ALERT AND ORIENTED X3. NO SIGNS OR SYMPTOMS OF DISTRESS NOTED. NO SOB. NO COMPLAINTS OF PAIN AT THIS TIME. ABLE TO MAKE NEEDS KNOWN. PATIENT TOLERATING WELL ON ROOM AIR. IV ACCESS RMIDLINE 18G WITH NS RUNNING @75MLS/HR. PT NOTED WITH ABDOMINAL WOUND, DRESSING CLEAN WITH NO SOIL. SAFETY MEASURES IN PLACE WITH BED AT LOW POSITION, SIDE RAILS UP X2. CALL LIGHT IS WITHIN REACH. WILL CONTINUE TO MONITOR PATIENT THROUGHOUT SHIFT.
[2021-03-12 07:45] LABS: BASOPHILS % (AUTO) 0.2 % (0.0-2.0); EOSINOPHILS % (AUTO) 0.5 % (0.0-6.0); HEMATOCRIT 37 % (33-45); HEMOGLOBIN 11.5 g/dL (11.5-14.8); LYMPHOCYTES # (AUTO) 0.6 K/uL (0.8-4.8); LYMPHOCYTES % (AUTO) 6.5 % (20.0-44.0); MEAN CORPUSCULAR HGB CONC 31 g/dl (31.0-36.0); MEAN CORPUSCULAR VOLUME 69 fL (82-100); MONOCYTES # (AUTO) 0.7 K/uL (0.1-1.30); MONOCYTES % (AUTO) 6.9 % (2.0-12.0); NEUTROPHILS # (AUTO) 8.5 K/uL (1.8-8.9); NEUTROPHILS % (AUTO) 85.9 % (43.0-81.0); PLATELET COUNT (AUTO) 298 K/uL (150-450); WHITE BLOOD COUNT (AUTO) 9.9 K/uL (4.3-11.0)
[2021-03-12 08:00] VITALS: BP 111/67
[2021-03-12 08:23] LABS: CALCIUM, SERUM 7.2 mg/dL (8.5-10.1); MAGNESIUM 1.8 mg/dL (1.8-2.4); PHOSPHORUS 2.9 mg/dL (2.5-4.9)
[2021-03-12 08:26] LABS: THYROID STIMULATING HORMONE 1.002 uIU/mL (0.358-3.74)
[2021-03-12 08:31] LABS: POTASSIUM 1.9 mmol/L (3.5-5.1)
[2021-03-12] MEDS: PANTOPRAZOLE 40 MG TABLET.DR PO SCH (08:51)
[2021-03-12] MEDS: ENOXAPARIN SODIUM 40 MG/0.4 ML DISP.SYRIN SQ SCH (08:53)
[2021-03-12] MEDS: FAMOTIDINE (20 MG) 20 MG TABLET PO SCH (08:54)
[2021-03-12] MEDS: DULOXETINE HCL 30 MG CAPSULE.DR PO SCH ×2 (08:54→17:16)
[2021-03-12] MEDS: ASCORBIC ACID 500 MG TABLET PO SCH (08:54)
[2021-03-12] MEDS: MULTIVIT W/MINERALS 1 TAB TABLET PO SCH (08:54)
[2021-03-12] MEDS: AMLODIPINE BESYLATE 5 MG TABLET PO SCH (08:55)
[2021-03-12] MEDS: VANCOMYCIN 1.25 GM in IV D5W 250 ML IV SCH ×2 (08:59→21:12)
[2021-03-12] MEDS ORDERED: CRANBERRY EXTRACT 450 MG PO SCH (09:00)
[2021-03-12] MEDS: THEOPHYLLINE TAB 24HR 400 MG TAB.SR. PO SCH ×2 (09:00→21:00)
[2021-03-12] MEDS ORDERED: HYDROCODONE/APAP 10/325MG TABLET PO SCH (09:00)
[2021-03-12] MEDS: PROSOURCE / PROSTAT (PYXIS) 30 ML UDC PO SCH ×2 (09:07→16:48)
[2021-03-12] MEDS: POTASSIUM CL. PREMIX PERIPHER. 50 ML IV SCH ×4 (09:07→12:08)
[2021-03-12] MEDS ORDERED: PIPERACILLIN /TAZOBACTAM 3.375 G in IV D5W 50 ML IV SCH (12:00)
--- NOTE | 2021-03-12 13:10 | NUR ---
RN NOTES HYDROCODONE 10-325MG MISCOUNTED, 6 TABS, TOOK 1, 5 REMAINING. RESOLVED DISCREPANCY WITH RONI DUENAS AND CHARGE NURSE CORRINE DUENAS.
--- NOTE | 2021-03-12 13:13 | NUR ---
RN NOTE DISCREPANCY RESOLVED WITNESSED FOR RN MANAN AND CHARGE NURSE CORRINE, COUNTED HYDROCODONE 10/325 5 TABLETS REMAINING.
[2021-03-12 16:00] VITALS: BP_SYST 127; BP_SYST 96; BP_DIAS 57; BP_DIAS 75
[2021-03-12] MEDS: IV NS 0.9% 1,000 ML IV PRN (16:23)
[2021-03-12] MEDS: CEFEPIME 2 GM in IV D5W 100 ML IV SCH (16:29)
--- NOTE | 2021-03-12 17:00 | NUR ---
RN NOTES OBTAINED ORDER FROM ARISTIDES SCHERER NP FOR IN AND OUT CATH FOR URINE. ORDERS READ BACK AND CARRIED OUT. URINE SPECIMEN SENT TO LAB.
--- NOTE | 2021-03-12 19:03 | NUR ---
RN CLOSING NOTES PATIENT IS AWAKE IN BED. ALERT AND ORIENTED X4. NO SIGNS OR SYMPTOMS OF DISTRESS NOTED. NO SOB. NO COMPLAINTS OF PAIN AT THIS TIME. ABLE TO MAKE NEEDS KNOWN. PATIENT TOLERATING WELL ON ROOM AIR. IV ACCESS RMIDLINE 18G WITH NS RUNNING @75MLS/HR. ALL NEEDS MET THROUGHOUT SHIFT. PT WITH ABDOMINAL WOUND, DRESSING CLEAN WITH NO SOIL. WOUND TREATMENT DONE. SAFETY MEASURES IN PLACE WITH BED AT LOW POSITION, SIDE RAILS UP X2. CALL ENDORSE CONTINUITY OF CARE TO NEXT SHIFT.
[2021-03-12] MEDS: ALBUTEROL FS 2.5 MG/3 ML VIAL.NEB NEB SCH (19:30)
[2021-03-13] MEDS: ALBUTEROL FS 2.5 MG/3 ML VIAL.NEB NEB SCH ×4 (01:30→19:30)
[2021-03-13 02:47] LABS: BILIRUBIN,URINE NEGATIVE (NEGATIVE); COLOR,URINE YELLOW (YELLOW); LEUKOCYTE ESTERASE ,URINE LARGE (NEGATIVE); NITRITE, URINE NEGATIVE (NEGATIVE); PROTEIN,URINE 30 mg/dl (NEGATIVE); UGLUCOSE NEGATIVE (NEGATIVE); UROBILINOGEN,URINE 0.2 EU/dL (0.2)
[2021-03-13 02:58] LABS: BACTERIA,URINE Few /HPF (None Seen); SQUAMOUS EPITHELIAL CELL,UR Few /HPF (None Seen); WBC,URINE 51-80 /HPF (0-3)
[2021-03-13 03:45] VITALS: BP 101/65
[2021-03-13] MEDS: CEFEPIME 2 GM in IV D5W 100 ML IV SCH ×2 (04:16→16:32)
[2021-03-13] MEDS: HYDROCODONE/APAP 10/325MG TABLET PO PRN ×2 (04:35→16:33)
[2021-03-13] MEDS: PREGABALIN 25 MG CAPSULE PO SCH ×4 (04:41→21:55)
--- NOTE | 2021-03-13 05:56 | NUR ---
CLOSING NOTES: SLEPT THRU THE NIGHT UNTIL AWAKENED FOR AM MEDICAT[facility].. WHEN AWAKENED SHE REQUISTED [facility] AND [facility], "PAIN IS ALL OVER" [facility] GIVEN , WILL HOLD OFF ON THE ATIVAN FOR THE TIME BEING AND OBSERVE HER. AFTER BEING CLEANED UP, LINEN CHANGED, SHE YELLED TO BE LEFT ALONE, HITTING ME I ASSISTED THE WELDER FITTER APPRENTICE TO PULL HER UP IN THE BED. AFTERWARDS SHE WENT TO SLEEP LYING ON HER RIGHT SIDE. [facility] BEING EFFECTIVE/ ABD DRESSING C/D/I AND THE ABD
[2021-03-13 06:25] LABS: BASOPHILS % (AUTO) 0.3 % (0.0-2.0); EOSINOPHILS % (AUTO) 3.4 % (0.0-6.0); HEMATOCRIT 36 % (33-45); HEMOGLOBIN 11.5 g/dL (11.5-14.8); LYMPHOCYTES # (AUTO) 0.7 K/uL (0.8-4.8); MEAN CORPUSCULAR HGB CONC 32 g/dl (31.0-36.0); MEAN CORPUSCULAR VOLUME 69 fL (82-100); MONOCYTES # (AUTO) 0.8 K/uL (0.1-1.30); MONOCYTES % (AUTO) 9.2 % (2.0-12.0); NEUTROPHILS # (AUTO) 6.6 K/uL (1.8-8.9); NEUTROPHILS % (AUTO) 79.1 % (43.0-81.0); PLATELET COUNT (AUTO) 278 K/uL (150-450); RED BLOOD CELL COUNT(AUTO) 5.28 MIL/uL (4.0-5.2); WHITE BLOOD COUNT (AUTO) 8.4 K/uL (4.3-11.0)
[2021-03-13 07:45] LABS: CALCIUM, SERUM 7.9 mg/dL (8.5-10.1); CREATININE 0.8 mg/dL (0.6-1.3); MAGNESIUM 1.8 mg/dL (1.8-2.4); PHOSPHORUS 3.2 mg/dL (2.5-4.9)
[2021-03-13 07:56] LABS: POTASSIUM 2.5 mmol/L (3.5-5.1)
[2021-03-13] MEDS ORDERED: POTASSIUM CHLORIDE 10 MEQ TABLET.SA PO ONE (08:30)
[2021-03-13] MEDS: AMLODIPINE BESYLATE 5 MG TABLET PO SCH ×2 (09:00→09:25)
[2021-03-13] MEDS: VANCOMYCIN 1.25 GM in IV D5W 250 ML IV SCH (09:00)
[2021-03-13] MEDS: MULTIVIT W/MINERALS 1 TAB TABLET PO SCH ×2 (09:00→09:24)
[2021-03-13] MEDS: ASCORBIC ACID 500 MG TABLET PO SCH ×2 (09:00→09:24)
[2021-03-13] MEDS: PROSOURCE / PROSTAT (PYXIS) 30 ML UDC PO SCH ×2 (09:00→16:32)
[2021-03-13] MEDS: DULOXETINE HCL 30 MG CAPSULE.DR PO SCH ×2 (09:24→16:33)
[2021-03-13] MEDS: FAMOTIDINE (20 MG) 20 MG TABLET PO SCH (09:24)
[2021-03-13] MEDS: PANTOPRAZOLE 40 MG TABLET.DR PO SCH (09:24)
[2021-03-13] MEDS: POTASSIUM CL. PREMIX PERIPHER. 50 ML IV SCH ×4 (09:30→12:16)
[2021-03-13] MEDS: THEOPHYLLINE TAB 24HR 400 MG TAB.SR. PO SCH ×3 (09:30→21:56)
--- NOTE | 2021-03-13 09:46 | NUR ---
PATIENT REFUSED NORVASC - BP IS 139/72. ENCOURAGED PATIENT TO TAKE IT AND EDUCATED ON THE IMPORTANCE OF TAKING IT. PATIENT STATED "IT'S NOT USUALLY HIGH".
--- NOTE | 2021-03-13 10:35 | NUR ---
DID NOT ADMINISTER VANCO- TROUGH LEVEL IS 28. PHARMACY AWARE.
[2021-03-13] MEDS: IV NS 0.9% 1,000 ML IV PRN (13:19)
--- NOTE | 2021-03-13 15:52 | NUR ---
TRANSFERRED CARE OF PATIENT TO
[2021-03-13 16:00] VITALS: BP 108/57
--- NOTE | 2021-03-13 16:11 | NUR ---
RN NOTES, RECEIVED PATIENT FOR CONTINUATION OF CARE FROM TIFFANIE RN PATIENT STABLE NO DISTRESS NOTED, WILL CONT TO MONITOR CLOSELY.
--- NOTE | 2021-03-13 19:10 | NUR ---
RN NOTES, ENDORSED PATIENT TO HENRIQUE DU FOR CONTINUATION OF CARE, STABLE WITH OPTIMAL O2 SAT LEVEL, ALL MEDICATIONS DUE ADMINISTERED, CALL LIGHT W/I REACH, S/R BED UP X2, NO SOB/ACUTE DISTRESS NOTED.
--- NOTE | 2021-03-13 19:45 | NUR ---
RN NOTE PT RECEIVED IN BED. CURRENTLY ON ROOM AIR SHOWING NO S/S OF RESP DISTRESS. A&OX4. ABDOMEN WOUND NOTED. CURRENTLY ON CARDIAC DIET. PT HAS RIGHT UPPER ARM MIDLINE INFUSING NS @75ML/HR. IV FLUSHED, PATENT, AND INTACT WITH NO INFILTRATION. ALL SAFETY MEASURES IMPLEMENTED. BED LOCKED AND IN LOWEST POSITION. BED ALARM ON. CALL LIGHT WITHIN REACH. WILL CONTINUE TO MONITOR THROUGHOUT THE SHIFT.
[2021-03-13 20:00] VITALS: BP 114/69
[2021-03-13] MEDS: ENOXAPARIN SODIUM 40 MG/0.4 ML DISP.SYRIN SQ SCH ×2 (21:00→21:54)
--- NOTE | 2021-03-13 22:00 | NUR ---
RN NOTE PT REFUSED LOVENOX, PREGABALIN, AND THEOPHYLLINE. TRIED EDUCATING PT ABOUT BENEFITS OF MEDICATIONS, BUT PT REFUSED.
[2021-03-13] MEDS: ACETAMINOPHEN 325 MG TABLET PO PRN (23:05)
[2021-03-13] MEDS: LORAZEPAM 1 MG TABLET PO PRN (23:05)
[2021-03-13] MEDS: DIPHENOXYLATE HCL/ATROP SULF 1 UDTAB TABLET PO PRN (23:05)
[2021-03-14] MEDS: ALBUTEROL FS 2.5 MG/3 ML VIAL.NEB NEB SCH ×4 (01:30→19:30)
[2021-03-14 04:00] VITALS: BP 96/64
[2021-03-14] MEDS: IV NS 0.9% 1,000 ML IV PRN (04:19)
[2021-03-14] MEDS: CEFEPIME 2 GM in IV D5W 100 ML IV SCH ×2 (04:19→17:16)
[2021-03-14] MEDS: PREGABALIN 25 MG CAPSULE PO SCH ×3 (04:39→20:50)
[2021-03-14] MEDS: HYDROCODONE/APAP 5/325MG TABLET PO PRN ×2 (06:46→13:57)
--- NOTE | 2021-03-14 07:03 | NUR ---
RN NOTE NO CHANGES IN PT CONDITION DURING SHIFT. PT IS ON ROOM AIR SHOWING NO S/S OF RESP DISTRESS/SOB. CURRENTLY A&OX4. PT HAS RIGHT UPPER ARM MIDLINE FLUSHED, PATENT, AND INTACT WITH NO INFILTRATION. ALL DUE MEDS GIVEN ORDERED. PT KEPT CLEAN AND COMFORTABLE. ALL SAFETY MEASURES IMPLEMENTED. CALL LIGHT WITHIN REACH. BED ALARM ON. BED LOCKED AND IN LOWEST POSITION. WILL ENDORSE TO MORNING SHIFT RN FOR VJ.
--- NOTE | 2021-03-14 08:09 | NUR ---
MS RN OPENING NOTE PATIENT IS IN BED RESTING, PATIENT IS IN NO ACUTE DISTRESS. PATIENT IS ON ROOM AIR TOLERATING WELL. SAFETY PRECAUTIONS ARE ON, BED IS LOCKED IN THE LOWEST POSITION WITH SIDE RAILS UP, CALL LIGHT WITHIN REACH, WILL CONTINUE TO MONITOR CLOSELY.
[2021-03-14] MEDS: VANCOMYCIN 1.25 GM in IV D5W 250 ML IV SCH ×2 (09:00→09:03)
[2021-03-14] MEDS: MULTIVIT W/MINERALS 1 TAB TABLET PO SCH (09:00)
[2021-03-14] MEDS: PROSOURCE / PROSTAT (PYXIS) 30 ML UDC PO SCH ×2 (09:00→17:00)
[2021-03-14] MEDS: ASCORBIC ACID 500 MG TABLET PO SCH (09:00)
[2021-03-14] MEDS: AMLODIPINE BESYLATE 5 MG TABLET PO SCH (09:00)
[2021-03-14] MEDS: MUPIROCIN OINT 2% 22 GM TUBE NS SCH ×2 (09:04→21:00)
[2021-03-14] MEDS: FAMOTIDINE (20 MG) 20 MG TABLET PO SCH (09:04)
[2021-03-14] MEDS: PANTOPRAZOLE 40 MG TABLET.DR PO SCH (09:04)
[2021-03-14] MEDS: THEOPHYLLINE TAB 24HR 400 MG TAB.SR. PO SCH ×2 (09:05→20:50)
[2021-03-14] MEDS: DULOXETINE HCL 30 MG CAPSULE.DR PO SCH ×2 (09:07→17:16)
[2021-03-14] MEDS: LORAZEPAM 1 MG TABLET PO PRN ×2 (09:13→20:50)
[2021-03-14] MEDS: POTASSIUM CL. PREMIX PERIPHER. 50 ML IV ONE ×2 (10:00→10:40)
[2021-03-14] MEDS: POTASSIUM CHLORIDE IV SCH ×2 (10:40→20:18)
[2021-03-14] MEDS: D5 IV SCH ×2 (10:40→20:18)
[2021-03-14] MEDS: NACL IV SCH ×2 (10:40→20:18)
--- NOTE | 2021-03-14 10:55 | NUR ---
WOUND CARE CONSULT: REVIEWED CHART, NURSING DOCUMENTATION AND PHOTOS WHICH INDICATE ABDOMINAL WOUND AND DISCOLORATION OF BUTTOCKS, PRESENT ON ADMISSION. DR FREGOSO NOTIFIED OF SURGICAL CONSULT REQUEST. IN AGREEMENT WITH PLAN OF CARE.
[2021-03-14 12:00] VITALS: BP 112/67
--- NOTE | 2021-03-14 13:23 | NUR ---
MS RN NOTE PATIENTS VANCO THROUGH IS 26 FROM YESTERDAY, NOTIFIED PHARMACY, PATIENTS POTASSIUM IS 2.5 FROM YESTERDAY IT WAS REPLACED, LABS HAS NOT BEEN DRAWN. NOTIFIED DR. SCHERER, SHE ORDERED TO RE CHECK POTASSIUM LEVEL PRIOR TO ADMINISTERING POTASSIUM.
--- NOTE | 2021-03-14 18:43 | NUR ---
MS RN NOTE PATIENT STATES IV MIDLINE HURTS AND REFUSED ALL THE MEDICATIONS THROUGH IV MIDLINE.
--- NOTE | 2021-03-14 18:55 | NUR ---
MS RN CLOSING NOTE PATIENT IS IN BED RESTING, PATIENT IS IN NO ACUTE DISTRESS. PATIENT IS ON ROOM AIR TOLERATING WELL. PATIENT IS NON COMPLIMENT WITH BLOOD DRAWINGS AND IV MEDICATIONS. SAFETY PRECAUTIONS ARE ON, BED IS LOCKED IN THE LOWEST POSITION WITH SIDE RAILS UP, CALL LIGHT WITHIN REACH, ENDORSE PATIENT TO TROUBLE LOCATER NURSE FOR VJ.
--- NOTE | 2021-03-14 19:30 | NUR ---
RN NOTE PT RECEIVED IN BED. CURRENTLY ON ROOM AIR SHOWING NO S/S OF RESP DISTRESS/SOB. A&OX4. PT IS ON BED REST. IV NOTED. ALL SAFETY MEASURES IMPLEMENTED. CALL LIGHT WITHIN REACH. BED ALARM ON. BED LOCKED AND IN LOWEST POSITION. WILL CONTINUE TO MONITOR AND ASSESS THROUGHOUT THE SHIFT.
[2021-03-14 20:00] VITALS: BP 133/67
--- NOTE | 2021-03-14 20:37 | NUR ---
RT pt refused neb tx. notified bisi howard
--- NOTE | 2021-03-14 20:40 | NUR ---
RN NOTE PT REFUSED LOVENOX, BACTROBAN AND ALL IV MEDICATIONS. SPOKE ABOUT THE BENEFITS OF THE MEDICATIONS, BUT PT WAS REFUSING. ALSO, SPOKE WITH DR. CYNTHIA INFANTE AND INFORMED THAT PT IS REFUSING ALL IV MEDICATIONS.
[2021-03-14] MEDS: ACETAMINOPHEN 325 MG TABLET PO PRN (20:50)
[2021-03-14] MEDS: ENOXAPARIN SODIUM 40 MG/0.4 ML DISP.SYRIN SQ SCH (21:00)
[2021-03-14 21:06] LABS: BASOPHILS % (AUTO) 0.6 % (0.0-2.0); EOSINOPHILS % (AUTO) 2.5 % (0.0-6.0); HEMATOCRIT 37 % (33-45); HEMOGLOBIN 11.6 g/dL (11.5-14.8); LYMPHOCYTES # (AUTO) 0.8 K/uL (0.8-4.8); LYMPHOCYTES % (AUTO) 11.2 % (20.0-44.0); MEAN CORPUSCULAR HGB CONC 31 g/dl (31.0-36.0); MEAN CORPUSCULAR VOLUME 69 fL (82-100); MONOCYTES # (AUTO) 0.5 K/uL (0.1-1.30); MONOCYTES % (AUTO) 7.3 % (2.0-12.0); NEUTROPHILS # (AUTO) 5.7 K/uL (1.8-8.9); NEUTROPHILS % (AUTO) 78.4 % (43.0-81.0); PLATELET COUNT (AUTO) 356 K/uL (150-450); RED BLOOD CELL COUNT(AUTO) 5.42 MIL/uL (4.0-5.2); WHITE BLOOD COUNT (AUTO) 7.3 K/uL (4.3-11.0)
[2021-03-14 21:26] LABS: CALCIUM, SERUM 8.2 mg/dL (8.5-10.1); CREATININE 0.8 mg/dL (0.6-1.3); MAGNESIUM 1.6 mg/dL (1.8-2.4); PHOSPHORUS 2.3 mg/dL (2.5-4.9)
[2021-03-14 21:34] LABS: POTASSIUM 2.8 mmol/L (3.5-5.1)
--- NOTE | 2021-03-14 22:40 | NUR ---
RN NOTE PT TRANSFERRED TO 3W.
--- NOTE | 2021-03-14 23:06 | NUR ---
MS RN Opening/Transfer Notes Patient was transferred in a gurney from the REI unit. Patient was oriented to the staff and her room. Patient's A/Ox4 with no respiratory distress noted. Patient has a right upper arm midline, which is intact, patent, and flushing well. Patient's in no acute distress at this time. Safety measures in place: Bed locked, side rails upx3, and call light within reach of the patient. Will continue to monitor the patient.
[2021-03-15] MEDS: ALBUTEROL FS 2.5 MG/3 ML VIAL.NEB NEB SCH ×4 (01:30→20:34)
[2021-03-15] MEDS: CEFEPIME 2 GM in IV D5W 100 ML IV SCH ×2 (05:00→05:08)
[2021-03-15] MEDS: PREGABALIN 25 MG CAPSULE PO SCH ×3 (05:25→20:30)
[2021-03-15] MEDS: D5 IV SCH ×2 (05:39→16:54)
[2021-03-15] MEDS: NACL IV SCH ×2 (05:39→16:54)
[2021-03-15] MEDS: POTASSIUM CHLORIDE IV SCH ×2 (05:39→16:54)
[2021-03-15 06:54] LABS: BASOPHILS % (AUTO) 0.5 % (0.0-2.0); EOSINOPHILS % (AUTO) 3.9 % (0.0-6.0); HEMATOCRIT 37 % (33-45); HEMOGLOBIN 11.7 g/dL (11.5-14.8); LYMPHOCYTES # (AUTO) 1.1 K/uL (0.8-4.8); LYMPHOCYTES % (AUTO) 16.5 % (20.0-44.0); MEAN CORPUSCULAR HGB CONC 31 g/dl (31.0-36.0); MEAN CORPUSCULAR VOLUME 69 fL (82-100); MONOCYTES # (AUTO) 0.6 K/uL (0.1-1.30); NEUTROPHILS # (AUTO) 4.9 K/uL (1.8-8.9); NEUTROPHILS % (AUTO) 70.1 % (43.0-81.0); PLATELET COUNT (AUTO) 356 K/uL (150-450); WHITE BLOOD COUNT (AUTO) 6.9 K/uL (4.3-11.0)
[2021-03-15 07:25] LABS: CALCIUM, SERUM 8.4 mg/dL (8.5-10.1); CREATININE 0.7 mg/dL (0.6-1.3); MAGNESIUM 1.8 mg/dL (1.8-2.4); PHOSPHORUS 2.3 mg/dL (2.5-4.9)
--- NOTE | 2021-03-15 07:30 | NUR ---
MS RN Closing Notes Patient was seen awake in bed resting. Patient's A/Ox4 with no respiratory distress noted. Patient has a right upper arm midline, which is intact, patent, and flushing well. Patient's in no acute distress at this time. Safety measures in place: Bed locked, side rails upx3, and call light within reach of the patient. Endorsed care the day shift nurse.
[2021-03-15 07:33] LABS: POTASSIUM 2.7 mmol/L (3.5-5.1)
--- NOTE | 2021-03-15 07:35 | NUR ---
RN MICHELLE KOHLI FROM THE LAB CALLED REGARDING CRITICAL VALUE OF POTASSIUM 2.7 INFORMED NOLAN INFANTE NP. AND ORDERED 100 Meq Kcl PO. ORDER READ BACK AND CARRIED OUT.
[2021-03-15 08:00] VITALS: BP_SYST 101; BP_SYST 127; BP_DIAS 67; BP_DIAS 75
[2021-03-15] MEDS: FAMOTIDINE (20 MG) 20 MG TABLET PO SCH (08:13)
[2021-03-15] MEDS: HYDROCODONE/APAP 10/325MG TABLET PO PRN ×2 (08:13→22:32)
[2021-03-15] MEDS: PANTOPRAZOLE 40 MG TABLET.DR PO SCH (08:14)
[2021-03-15] MEDS: DULOXETINE HCL 30 MG CAPSULE.DR PO SCH ×2 (08:14→16:44)
[2021-03-15] MEDS: AMLODIPINE BESYLATE 5 MG TABLET PO SCH (08:15)
[2021-03-15] MEDS: PROSOURCE / PROSTAT (PYXIS) 30 ML UDC PO SCH ×2 (08:20→16:45)
[2021-03-15] MEDS: MUPIROCIN OINT 2% 22 GM TUBE NS SCH ×2 (08:20→21:32)
[2021-03-15] MEDS: THEOPHYLLINE TAB 24HR 400 MG TAB.SR. PO SCH ×2 (08:20→20:34)
[2021-03-15] MEDS: MULTIVIT W/MINERALS 1 TAB TABLET PO SCH (08:31)
[2021-03-15] MEDS: ASCORBIC ACID 500 MG TABLET PO SCH (08:31)
[2021-03-15] MEDS ORDERED: VANCOMYCIN 1.25 GM in IV D5W 250 ML IV SCH (09:00)
[2021-03-15] MEDS ORDERED: POTASSIUM CL. PREMIX PERIPHER. 50 ML IV ONE (10:00)
[2021-03-15] MEDS ORDERED: POTASSIUM CHLORIDE 20 MEQ TAB.PRT.SR PO ONE (10:30)
[2021-03-15] MEDS ORDERED: POTASSIUM CHLORIDE 20 MEQ TAB.PRT.SR PO SCH ×3 (11:00)
[2021-03-15] MEDS: Magnesium 1GM/D5W 100ML PREMIX 100 ML IV SCH ×2 (11:04→12:30)
[2021-03-15] MEDS: HYDROCODONE/APAP 5/325MG TABLET PO PRN (11:05)
[2021-03-15] MEDS: LORAZEPAM 1 MG TABLET PO PRN (12:32)
--- NOTE | 2021-03-15 12:32 | NUR ---
RN NOTE PT IS ANXIOUS, AGITATED AND SCREAMING. ATIVAN 1 MG TABLET PRN GIVEN.
[2021-03-15] MEDS: POTASSIUM CHLORIDE 20 MEQ TAB.PRT.SR PO SCH ×3 (15:28→17:46)
[2021-03-15] MEDS: DOXYCYCLINE HYCLATE (100 MG) 100 MG TABLET PO SCH ×2 (15:28→20:30)
[2021-03-15] MEDS: METRONIDAZOLE 500 MG TABLET PO SCH ×2 (15:28→16:44)
[2021-03-15] MEDS: ENSURE ENLIVE 237 ML LIQUID (VANILLA) PO SCH ×2 (15:28→16:45)
[2021-03-15 16:06] VITALS: BP 111/57
[2021-03-15] MEDS ORDERED: K PHOS NEUTRAL 250 MG TABLET PO ONE (17:00)
--- NOTE | 2021-03-15 18:08 | NUR ---
End of Shift Summary Patient resting in bed. a/o x3. On room air, no sob noted. No s/s of respiratory distress. IV access on right upper arm midline, intact and patent. No signs of infiltration. Due meds given as ordered. All needs have been met and attended. Safety measures maintained. Bed in lowest position, brakes locked. Side rails up x2. Kept call light within reach. Will endorse continuity of care to oncoming shift.
--- NOTE | 2021-03-15 19:47 | NUR ---
MS RN OPENING NOTE RECEIVED PT AWAKE IN BED. A/O X4. PT IS STABLE ON ROOM AIR. NO SOB OR S/S OF RESPIRATORY DISTRESS NOTED. PT HAS NO C/O PAIN OR DISCOMFORT AT THIS TIME. IV ACCESS IN MINISTERIO MIDLINE, INTACT AND PATENT. SAFETY PRECAUTIONS MAINTAINED. BED IN LOWEST LOCKED POSITION, HOB ELEVATED, SIDE RAILS UP X2. CALL LIGHT AND TABLE WITHIN REACH. WILL CONTINUE WITH PLAN OF CARE.
[2021-03-15 20:00] VITALS: BP 116/55
[2021-03-15] MEDS: ENOXAPARIN SODIUM 40 MG/0.4 ML DISP.SYRIN SQ SCH (20:29)
--- NOTE | 2021-03-15 22:32 | NUR ---
RN PAIN PT C/O ACHING PAIN IN RIGHT ABDOMEN, RATED 10/10 ON PAIN SCALE. VSS. PER PT REQUEST, ADMINISTERED NORCO 10-325 PO Q6H PRN FOR PAIN. WILL CONTINUE TO MONITOR PT.
[2021-03-16] MEDS: LORAZEPAM 1 MG TABLET PO PRN ×2 (01:18→09:36)
[2021-03-16] MEDS: ALBUTEROL FS 2.5 MG/3 ML VIAL.NEB NEB SCH ×4 (01:29→19:30)
[2021-03-16] MEDS: POTASSIUM CHLORIDE IV SCH ×3 (03:12→23:48)
[2021-03-16] MEDS: D5 IV SCH ×3 (03:12→23:48)
[2021-03-16] MEDS: NACL IV SCH ×3 (03:12→23:48)
[2021-03-16] MEDS: PREGABALIN 25 MG CAPSULE PO SCH ×4 (04:26→21:59)
--- NOTE | 2021-03-16 06:29 | NUR ---
MS RN CLOSING NOTE PT IS AWAKE IN BED. A/O X4. PT IS STABLE ON ROOM AIR. NO SOB OR S/S OF RESPIRATORY DISTRESS NOTED. PT HAS NO C/O PAIN OR DISCOMFORT AT THIS TIME. IV ACCESS IS INTACT, PATENT, AND FLUSHING WELL. PAIN MANAGEMENT ADMINISTERED PER ORDER. ALL NEEDS HAVE BEEN MET. SAFETY PRECAUTIONS MAINTAINED AT ALL TIMES. BED IN LOWEST LOCKED POSITION, HOB ELEVATED, SIDE RAILS UP X2. CALL LIGHT AND TABLE WITHIN REACH. WILL ENDORSE TO ONCOMING NURSE FOR VJ.
[2021-03-16 06:58] LABS: BASOPHILS % (AUTO) 0.5 % (0.0-2.0); HEMATOCRIT 39 % (33-45); HEMOGLOBIN 12.3 g/dL (11.5-14.8); LYMPHOCYTES # (AUTO) 0.9 K/uL (0.8-4.8); LYMPHOCYTES % (AUTO) 10.4 % (20.0-44.0); MEAN CORPUSCULAR HGB CONC 32 g/dl (31.0-36.0); MEAN CORPUSCULAR VOLUME 68 fL (82-100); MONOCYTES # (AUTO) 0.9 K/uL (0.1-1.30); MONOCYTES % (AUTO) 9.9 % (2.0-12.0); NEUTROPHILS # (AUTO) 6.8 K/uL (1.8-8.9); NEUTROPHILS % (AUTO) 78.2 % (43.0-81.0); PLATELET COUNT (AUTO) 401 K/uL (150-450); RED BLOOD CELL COUNT(AUTO) 5.76 MIL/uL (4.0-5.2); WHITE BLOOD COUNT (AUTO) 8.7 K/uL (4.3-11.0)
[2021-03-16 07:12] LABS: CALCIUM, SERUM 8.6 mg/dL (8.5-10.1); CREATININE 0.8 mg/dL (0.6-1.3); PHOSPHORUS 2.2 mg/dL (2.5-4.9)
--- NOTE | 2021-03-16 07:24 | NUR ---
MS HENRIQUE OPENING NOTES RECEIVED PATIENT AWAKE, A/O X 4. ABLE TO MAKE NEEDS KNOWN, DENIES PAIN OR ANY DISCOMFORTS AT THIS TIME. ON ROOM AIR, BREATHING EVEN AND UNLABORED, NO SOB NOTED. MINISTERIO MIDLINE INTACT AND PATENT, PT STILL REFUSING IVF OF D5 1/2 NS +4AS ORDERED. SAFETY MEASURES IN PLACE: BED LOCKED AND IN LOWEST POSITION, CALL LIGHT WITHIN REACH, SIDE RAILS UP X2. WILL MONITOR PT ACCORDINGLY. Addendum: 03/16/21 at 0757 by ELIAZAR BEEBE RN ADDENDUM: IVF IS D5/1/2 NS +KCL 40MEQ AT 100ML/HR.
[2021-03-16 07:43] LABS: POTASSIUM 2.8 mmol/L (3.5-5.1)
[2021-03-16] MEDS: PANTOPRAZOLE 40 MG TABLET.DR PO SCH (07:54)
[2021-03-16 08:00] VITALS: BP 100/74
[2021-03-16] MEDS: ENSURE ENLIVE 237 ML LIQUID (VANILLA) PO SCH ×2 (08:00→17:00)
--- NOTE | 2021-03-16 08:09 | NUR ---
RN NOTES RECEIVED CALL FROM LAB THAT PT'S POTASSIUM WAS LOW 2.8, AUTO SERVICE DISPATCHER NARESH MADE AWARE WITH ORDER TO ADMINISTERED KDUR 20 MEQ X 5 DOSES. WILL CARRY OUT ORDER.
[2021-03-16] MEDS: MULTIVIT W/MINERALS 1 TAB TABLET PO SCH (09:00)
[2021-03-16] MEDS: FAMOTIDINE (20 MG) 20 MG TABLET PO SCH (09:00)
[2021-03-16] MEDS: ASCORBIC ACID 500 MG TABLET PO SCH (09:00)
[2021-03-16] MEDS: THEOPHYLLINE TAB 24HR 400 MG TAB.SR. PO SCH ×3 (09:00→22:03)
[2021-03-16] MEDS: MUPIROCIN OINT 2% 22 GM TUBE NS SCH ×3 (09:00→22:03)
[2021-03-16] MEDS: PROSOURCE / PROSTAT (PYXIS) 30 ML UDC PO SCH ×2 (09:00→17:00)
[2021-03-16] MEDS: DULOXETINE HCL 30 MG CAPSULE.DR PO SCH ×2 (09:00→17:00)
[2021-03-16] MEDS: AMLODIPINE BESYLATE 5 MG TABLET PO SCH (09:00)
[2021-03-16] MEDS: POTASSIUM CHLORIDE 20 MEQ TAB.PRT.SR PO SCH ×5 (09:36→13:00)
[2021-03-16] MEDS: HYDROCODONE/APAP 10/325MG TABLET PO PRN (09:36)
[2021-03-16] MEDS: METRONIDAZOLE 500 MG TABLET PO SCH ×3 (09:37→17:00)
[2021-03-16] MEDS: DOXYCYCLINE HYCLATE (100 MG) 100 MG TABLET PO SCH ×3 (09:38→21:59)
[2021-03-16] MEDS: K PHOS NEUTRAL 250 MG TABLET PO SCH (10:00)
--- NOTE | 2021-03-16 14:57 | NUR ---
RN NOTES PT TOOK ONLY KDUR 40 MEQ OUT OF 100MEQ OF KDUR. SHE REFUSED THE 60MEQ. SANDOR INFANTE MADE AWARE.
--- NOTE | 2021-03-16 18:34 | NUR ---
RN NOTES RECEIVED CALL FROM PAOLA HUNTER THAT PT'S DISCHARGE TONIGHT IS CANCELLED FOR TOMORROW.
--- NOTE | 2021-03-16 18:55 | NUR ---
MS RN CLOSING NOTES PATIENT IN BED AWAKE AT THIS TIME. HOB ELEVATED. A/O X 4. ABLE TO MAKE NEEDS KNOWN. ON ROOM AIR, BREATHING EVEN AND UNLABORED, NO SOB NOTED. MINISTERIO MIDLINE INTACT AND PATENT, PT STILL REFUSING IVF ORDERED, METAL CNC OPERATOR INFANTE AWARE. SAFETY MEASURES IN PLACE: BED LOCKED AND IN LOWEST POSITION, CALL LIGHT WITHIN REACH, SIDE RAILS UP X2. WILL ENDORSE PLAN OF CARE TO CLOSED CIRCUIT SCREEN WATCHER NURSE.
[2021-03-16 20:00] VITALS: BP 128/90
[2021-03-16] MEDS: ENOXAPARIN SODIUM 40 MG/0.4 ML DISP.SYRIN SQ SCH ×2 (21:00→22:00)
--- NOTE | 2021-03-16 21:00 | NUR ---
MS RN NOTES PT REFUSED TO TAKE MEDICATIONS AT THIS TIME. EXPLAINED TO PT IMPORTANCE OF MEDICATION IN HER POC BUT PT STILL REFUSED TO TAKE. PER PATIENT "SOMEBODY IS PUTTING COCKROACH IN MY WATER." PROVIDED APPLE JUICE INSTEAD BUT PT STILL REFUSED. NATIVIDAD, SISTER NOTIFIED.
[2021-03-17] MEDS: ALBUTEROL FS 2.5 MG/3 ML VIAL.NEB NEB SCH ×3 (01:30→13:30)
[2021-03-17] MEDS: HYDROCODONE/APAP 10/325MG TABLET PO PRN (02:43)
[2021-03-17] MEDS: LORAZEPAM 1 MG TABLET PO PRN ×2 (02:53→15:32)
[2021-03-17] MEDS: PREGABALIN 25 MG CAPSULE PO SCH ×2 (05:00→13:13)
--- NOTE | 2021-03-17 06:35 | NUR ---
MS RN NOTES AWAKE & RESPONSIVE. NOT IN ANY DISTRESS. NO SOB NOTED. DENIES ANY PAIN OR DISCOMFORT AT THIS TIME. AM CARE DONE. MONITORED ACCORDINGLY. CALL LIGHT WITHIN REACH. BED IN LOWEST POSITION. SR UP X 3 WITH BED ALARM ON FOR SAFETY. WILL ENDORSE TO NEXT SHIFT.
[2021-03-17 07:35] LABS: CALCIUM, SERUM 8.5 mg/dL (8.5-10.1); POTASSIUM 3.4 mmol/L (3.5-5.1)
[2021-03-17 08:00] VITALS: BP 107/68
[2021-03-17] MEDS: PANTOPRAZOLE 40 MG TABLET.DR PO SCH (08:52)
[2021-03-17] MEDS: ENSURE ENLIVE 237 ML LIQUID (VANILLA) PO SCH (08:52)
[2021-03-17] MEDS: AMLODIPINE BESYLATE 5 MG TABLET PO SCH (09:00)
[2021-03-17] MEDS: METRONIDAZOLE 500 MG TABLET PO SCH (09:10)
[2021-03-17] MEDS: DULOXETINE HCL 30 MG CAPSULE.DR PO SCH (09:10)
[2021-03-17] MEDS: ASCORBIC ACID 500 MG TABLET PO SCH (09:10)
[2021-03-17] MEDS: MULTIVIT W/MINERALS 1 TAB TABLET PO SCH (09:10)
[2021-03-17] MEDS: FAMOTIDINE (20 MG) 20 MG TABLET PO SCH (09:10)
[2021-03-17] MEDS: PROSOURCE / PROSTAT (PYXIS) 30 ML UDC PO SCH (09:11)
[2021-03-17] MEDS: DOXYCYCLINE HYCLATE (100 MG) 100 MG TABLET PO SCH (09:11)
[2021-03-17] MEDS: K PHOS NEUTRAL 250 MG TABLET PO SCH (09:11)
[2021-03-17] MEDS: THEOPHYLLINE TAB 24HR 400 MG TAB.SR. PO SCH (09:12)
[2021-03-17] MEDS: MUPIROCIN OINT 2% 22 GM TUBE NS SCH (09:16)
[2021-03-17] MEDS: POTASSIUM CHLORIDE IV SCH (10:06)
[2021-03-17] MEDS: D5 IV SCH (10:06)
[2021-03-17] MEDS: NACL IV SCH (10:06)
[2021-03-17] MEDS ORDERED: POTASSIUM CHLORIDE 20 MEQ TAB.PRT.SR PO ONE (11:30)
--- NOTE | 2021-03-17 15:55 | NUR ---
MS BIOMETRICS TECHNICIAN NOTES PATIENT LEFT UNIT WITH STABLE VITAL SIGNS. ALL BELONGINGS RETURNED AND SIGNED FOR. PHOTOS DECLINED UPON DISCHARGE. PATIENT ALERT AND ORIENTED X 4. NO SOB, BREATHING IS EVEN AND UNLABORED. ID BAND REMOVED. PATIENT WAS PICKED UP VIA AMBULANCE AT THIS TIME BY TWO CODING SUPPORT SPECIALIST.
== END 2021-03-17 16:00 | DRG 383 ==
LOC: ER 13:59 → TELE1 21:02 → MEDSG1 23:02 → MED 03-14 23:04
PROVIDERS: ADMIT Registered Nurse; ATTEND Registered Nurse
PROC: 05H933Z Insertion of Infusion Device into Right Brachial Vein, Percutaneous Approach (ICD-10-PCS; principal; 2021-03-11)
DX: L03.311 Cellulitis of abdominal wall (principal); D63.8 Anemia in other chronic diseases classified elsewhere; Z20.822 Contact with and (suspected) exposure to COVID-19; E78.5 Hyperlipidemia, unspecified; E87.1 Hypo-osmolality and hyponatremia; K21.9 Gastro-esophageal reflux disease without esophagitis; F32.9 Major depressive disorder, single episode, unspecified; F41.9 Anxiety disorder, unspecified; E83.42 Hypomagnesemia; Z98.890 Other specified postprocedural states; Z88.8 Allergy status to other drugs, medicaments and biological substances; Z91.013 Allergy to seafood; Z79.51 Long term (current) use of inhaled steroids; Z79.899 Other long term (current) drug therapy; I10 Essential (primary) hypertension; J44.9 Chronic obstructive pulmonary disease, unspecified; Z68.41 Body mass index [BMI] 40.0-44.9, adult; Z87.442 Personal history of urinary calculi; Z91.19 Patient's noncompliance with other medical treatment and regimen; E66.2 Morbid (severe) obesity with alveolar hypoventilation; B96.89 Other specified bacterial agents as the cause of diseases classified elsewhere; E87.6 Hypokalemia
CPT/HCPCS: 36415; 71045-TC; 80048-TC; 80061-TC; 80076-TC; 80202-TC; 81001; 82088; 82533; 83605-TC; 83735-TC; 84100-TC; 84244; 84443-TC; 84484-TC; 85025-TC; 85730-TC; 87040-TC; 87045-TC; 87081-TC; 87086-TC; 87177; 87209; 94799-TC; A6253; A6403; G0378; J0692; J1650; J2543; J3370; J3475; J3480; J3490; J7030; J7050; J7060; U0003

== ENCOUNTER 2021-04-19 22:41 | Inpatient (IN) | payer OTHER ==
[~2021-04-19] VITALS: Ht 170.2 cm; Wt 118.8 kg
[~2021-04-19 22:41] MED LIST changes: +ALBU6.7H9 IH; +AMIN887L PO; +BISA10SU11 RC; -CLON0.1T PO; +DIPH1TAB PO; -DOCU-160 PO; -GABA-532 PO; +HYDR-3980 PO; -LOPE2CAP PO; +LORA-259 PO; -MAG30ORA GT; +MECL-159 PO; +NA P133E RC; -PANT40TA2 PO; +PREG50CA PO; -ZINC56.713 TP
--- NOTE | 2021-04-19 23:15 | NUR ---
PT BIBRA 860 FROM 4 SEASONS FOR C/O CONSTANT YELLING THE WHOLE DAY. PT ALERT AND ORIENTED X3. WITH NON LABORED BREATHING.
[2021-04-19] MEDS ORDERED: HALOPERIDOL LACTATE INJ 5 MG/ML VIAL ONE (23:22)
[2021-04-19] MEDS ORDERED: HALOPERIDOL LACTATE INJ 5 MG/ML VIAL IM ONE (23:30)
[2021-04-20] MEDS ORDERED: LORAZEPAM INJ 2 MG/ML VIAL IM ONE
[2021-04-20] MEDS ORDERED: LORAZEPAM INJ 2 MG/ML VIAL ONE (00:07)
--- NOTE | 2021-04-20 00:17 | NUR ---
NATIVIDAD, SISTER [phone]
[2021-04-20] MEDS ORDERED: diphenhydrAMINE HCL 50 MG/ML VIAL ONE (00:29)
[2021-04-20] MEDS ORDERED: diphenhydrAMINE HCL 50 MG/ML VIAL IM ONE (00:30)
--- NOTE | 2021-04-20 00:34 | NUR ---
UNABLE TO START IV. PT REFUSING. ER AWARE.
--- NOTE | 2021-04-20 00:40 | NUR ---
UNABLE TO START IV. WILL TRY AGAIN.
--- NOTE | 2021-04-20 00:45 | NUR ---
ATTEMPTED TO PUT IV, NO SUCCESS.
--- NOTE | 2021-04-20 01:34 | NUR ---
NOT ABLE TO START IV.
[2021-04-20 01:45] LABS: BASOPHILS # (AUTO) 0.3 K/uL (0.0-0.2); BASOPHILS % (AUTO) 3.6 % (0.0-2.0); EOSINOPHILS % (AUTO) 0.5 % (0.0-6.0); HEMATOCRIT 30 % (33-45); HEMOGLOBIN 9.3 g/dL (11.5-14.8); LYMPHOCYTES # (AUTO) 0.7 K/uL (0.8-4.8); LYMPHOCYTES % (AUTO) 8.2 % (20.0-44.0); MEAN CORPUSCULAR HGB CONC 31 g/dl (31.0-36.0); MEAN CORPUSCULAR VOLUME 70 fL (82-100); MONOCYTES # (AUTO) 0.3 K/uL (0.1-1.30); MONOCYTES % (AUTO) 3.2 % (2.0-12.0); NEUTROPHILS # (AUTO) 7.2 K/uL (1.8-8.9); NEUTROPHILS % (AUTO) 84.5 % (43.0-81.0); PLATELET COUNT (AUTO) 240 K/uL (150-450); RED BLOOD CELL COUNT(AUTO) 4.29 MIL/uL (4.0-5.2); WHITE BLOOD COUNT (AUTO) 8.6 K/uL (4.3-11.0)
[2021-04-20 02:15] LABS: ACETAMINOPHEN 0 ug/ml (10-30); ALANINE AMINOTRANSFERASE < 6 U/L (12-78); ALBUMIN 1.8 g/dL (3.4-5.0); ALCOHOL, BLOOD < 3 mg/dL (0-0); ALKALINE PHOSPHATASE 104 U/L (46-116); ASPARTATE AMINOTRANSFERASE 13 U/L (15-37); BILIRUBIN,DIRECT 0.3 mg/dL (0.0-0.2); BILIRUBIN,TOTAL 0.6 mg/dL (0.2-1.0); CALCIUM, SERUM 7.6 mg/dL (8.5-10.1); CARBON DIOXIDE 31 mmol/L (21-32); CHLORIDE 102 mmol/L (98-107); CREATININE 0.7 mg/dL (0.6-1.3); GLUCOSE 80 mg/dL (74-106); SODIUM SERUM 143 mmol/L (136-145); TOTAL PROTEIN, SERUM 5.8 g/dL (6.4-8.2); UREA NITROGEN, BLOOD 16 mg/dL (7-18)
[2021-04-20 02:18] LABS: POTASSIUM 2.5 mmol/L (3.5-5.1)
[2021-04-20] MEDS ORDERED: POTASSIUM CHLORIDE 10 MEQ/50 ML PREMIXED IVPB FOR PERIPHERAL LINE IV ONE (02:30)
--- NOTE | 2021-04-20 02:30 | NUR ---
ATTEMPTED TO PUT IV, NO SUCCESS.
[2021-04-20 02:33] LABS: LYMPHOCYTES % (MANUAL) 17 % (16-48); MONOCYTES % (MANUAL) 4 % (0-11.0); NEUTROPHILS % (MANUAL) 79 (42-76)
[2021-04-20 02:40] LABS: BILIRUBIN,URINE MODERATE (NEGATIVE); COLOR,URINE DARK YELLOW (YELLOW); LEUKOCYTE ESTERASE ,URINE Large (NEGATIVE); NITRITE, URINE Negative (NEGATIVE); PROTEIN,URINE 30 mg/dl (NEGATIVE); UGLUCOSE Negative (NEGATIVE); UROBILINOGEN,URINE 0.2 EU/dL (0.2)
[2021-04-20 02:56] LABS: WBC,URINE 81-100 /HPF (0-3)
[2021-04-20 02:57] LABS: BACTERIA,URINE Few /HPF (None Seen); SQUAMOUS EPITHELIAL CELL,UR Few /HPF (None Seen)
[2021-04-20] MEDS ORDERED: POTASSIUM CHLORIDE 20 MEQ POWDER PACKET PO ONE (03:00)
--- NOTE | 2021-04-20 03:03 | NUR ---
ATTEMPTED TO PUT IV, NO SUCCESS.
[2021-04-20] MEDS ORDERED: POTASSIUM CHLORIDE 20 MEQ POWDER PACKET ONE (03:25)
[2021-04-20] MEDS ORDERED: CEFTRIAXONE 1GM BAG (ER ONLY) 1 GM/50 ML PIGGYBACK IV ONE (03:30)
--- NOTE | 2021-04-20 03:40 | NUR ---
NOT ABLE TO HAVE IV ACCESS.
[2021-04-20] MEDS ORDERED: CEFTRIAXONE 1 G VIAL IM ONE (04:00)
[2021-04-20] MEDS ORDERED: LIDOCAINE /MPF 1% VIAL 5 ML VIAL ONE (04:16)
[2021-04-20] MEDS ORDERED: CEFTRIAXONE 1 G VIAL ONE (04:16)
[2021-04-20] MEDS ORDERED: LABETALOL 20 MG/4 ML VIAL IV PRN (04:30)
[2021-04-20] MEDS ORDERED: ONDANSETRON HCL/PF 4 MG/2 ML VIAL IVP PRN (04:30)
[2021-04-20] MEDS ORDERED: Z GUARD REMEDY 2 OZ OINT TP PRN (04:30)
[2021-04-20] MEDS ORDERED: BISACODYL SUPP (10 MG) 10 MG/SUPP.RECT SUPP.RECT RC PRN (04:30)
[2021-04-20] MEDS ORDERED: LORAZEPAM 1 MG TABLET PO PRN (04:30)
[2021-04-20] MEDS ORDERED: hydrALAZINE HCL IV 20 MG VIAL IV PRN (04:30)
[2021-04-20] MEDS ORDERED: MECLIZINE HCL 25 MG TABLET PO PRN (04:30)
--- NOTE | 2021-04-20 04:35 | NUR ---
PT CHANGED, RESTING COMFORTABLY.
--- NOTE | 2021-04-20 04:35 | NUR ---
AWAITING MIDLINE INSERTION
[2021-04-20 04:58] LABS: IRON, SERUM 59 ug/dl (50-175); TOTAL IRON BINDING CAPACITY 83 ug/dl (250-450)
[2021-04-20] MEDS ORDERED: POTASSIUM CL. PREMIX PERIPHER. 100 ML ONE ×2 (05:02→07:02)
[2021-04-20 05:08] LABS: FERRITIN 294 ng/mL (8-388)
--- NOTE | 2021-04-20 06:10 | NUR ---
SECOND IV POTASSIUM STARTED.
--- NOTE | 2021-04-20 07:05 | NUR ---
THIRD POTASSIUM BAG INITIATED.
--- NOTE | 2021-04-20 07:45 | NUR ---
ROOM [facility]
--- NOTE | 2021-04-20 08:15 | NUR ---
RN NOTE PT REPORT GIVEN BY HENRIQUE RAMIREZ, VIA PHONE
--- NOTE | 2021-04-20 08:25 | NUR ---
PCR COVID SWAB DONE AND SENT TO THE LAB
--- NOTE | 2021-04-20 08:47 | NUR ---
THE PATIENT IS TAKEN TO ROOM 102 IN STABLE CONDITION AND PER ACLS POLICY.
--- NOTE | 2021-04-20 08:50 | NUR ---
RN REI NOTE ALTERED PT A/Ox1 TO NAME ONLY BROUGHT IN VIA GURNEY, UNABLE TO AMBULATE, BREATHING RA WITH NO SIGNS OF RESP DISTRESS OR SOB, SPO2 100%. PT VITALS BP 114/74, HR 82, RR 20, T 97.9 F. PT NSR 90s ON TELEBOX. PT HAS GORDON MIDLINE FLUSHED AND INTACT. PT HAS LARG ABDOMINAL WOUND COVERED IN DRSG AND SACRAL/PERINEAL REDNESS, UPPER CHEST RASH, PICTURES TAKEN AND DOCUMENTED. PT DIARRHEA NOTED. PT GIVEN 3/4 BAGS KCL IN ED, WILL ADMIN 4TH BAG. ALL PT SAFETY PRECAUTIONS IN PLACE, WILL CONT TO MONITOR
[2021-04-20 09:00] VITALS: BP 114/74
[2021-04-20] MEDS: DULOXETINE HCL 20 MG CAPSULE.DR PO SCH ×2 (09:00→17:00)
[2021-04-20] MEDS ORDERED: THEOPHYLLINE ANHYDROUS 200 MG TAB.SR.12H PO SCH (09:00)
[2021-04-20] MEDS: FAMOTIDINE (20 MG) 20 MG TABLET PO SCH (09:00)
[2021-04-20] MEDS: THEOPHYLLINE ANHYDROUS 100 MG TAB.SR.12H PO SCH ×2 (09:00→20:45)
[2021-04-20] MEDS: AMLODIPINE BESYLATE 5 MG TABLET PO SCH (09:00)
[2021-04-20] MEDS ORDERED: DULOXETINE HCL 30 MG CAPSULE.DR PO SCH (09:00)
[2021-04-20] MEDS: POTASSIUM CHLORIDE 20 MEQ TAB.PRT.SR PO SCH ×2 (09:00→17:00)
[2021-04-20] MEDS ORDERED: FAMOTIDINE 40 MG TABLET PO SCH (09:00)
--- NOTE | 2021-04-20 09:30 | NUR ---
RN NOTE UNABLE TO GIVE PO MEDS PT IS EXTREMELY ALTERED AND HIGH ASPIRATION RISK
--- NOTE | 2021-04-20 11:23 | NUR ---
WOUND CARE CONSULT: REVIEWED CHART, NURSING DOCUMENTATION AND PHOTOS WHICH INDICATE MULTIPLE SKIN ISSUES INCLUDING ABDOMINAL WOUND, RASHES, LEFT 2ND TOE WOUND, ALL PRESENT ON ADMISSION. SURGICAL AND DPM CONSULTS CALLED TO DR FREGOSO AND DR GRIMES. RECOMMENDATIONS MADE FOR SKIN PROTECTION. DISCUSSED WITH NURSING STAFF. PT IS ON KALYAN ISOFLEX LOW AIRLOSS BED. MD IN AGREEMENT WITH PLAN OF CARE.
[2021-04-20 12:00] VITALS: BP 111/66
[2021-04-20] MEDS: HEPARIN SODIUM, PORCINE 5000 UNITS/1 ML VIAL SQ SCH ×2 (12:12→17:46)
--- NOTE | 2021-04-20 12:35 | NUR ---
PT BLOOD GLUCOSE 87
[2021-04-20] MEDS ORDERED: PREGABALIN 25 MG CAPSULE PO SCH (13:00)
[2021-04-20] MEDS ORDERED: GABA-532 PO (14:26)
[2021-04-20] MEDS ORDERED: OXCA300T15 PO (14:26)
[2021-04-20 16:00] VITALS: BP 119/72
--- NOTE | 2021-04-20 16:00 | NUR ---
RN NOTE FISH BAILER UNABLE TO DRAW BMP LABS D/T HARD STICK. WILL CALL AGAIN TO MAKE SURE THEY DRAW THESE LABS FOR K+ UPDATE. NO BLOOD RETURN FROM MIDLINE
--- NOTE | 2021-04-20 16:30 | NUR ---
RN NOTE PT FAILED BEDSIDE SWALLOW EVAL W ICE CHIPS
[2021-04-20] MEDS: OXCARBAZEPINE 150 MG TABLET PO SCH (17:00)
[2021-04-20] MEDS: GABAPENTIN 100 MG CAPSULE PO SCH (17:00)
--- NOTE | 2021-04-20 17:36 | NUR ---
CALLED LAB TO REMIND THEM PT NEEDS BMP LABS FOR K+ UPDATE
--- NOTE | 2021-04-20 19:30 | NUR ---
RN NOTES SPOKE WITH CALVIN MCKINLEY ( DR. DIAZ) ADVISED THAT PT HAD AM LABS ( K LEVEL IS AT 3.5) A TOTAL OF 4 BAGS OF POTASSIUM GIVEN ; 3 BAGS OF POTASSIUM IN ER AND 1 BAG IN REI IN THE AM SHIFT. REPEAT BLOOD DRAW WAS UNSUCCESSFUL FOR BMP. SAID ITS OK WAIT FOR AM LAB FOR REPEAT BMP. ALSO ADVISED PT HAS BEEN CONFUSED AND ORAL POTASSIUM MEDS WERE NOT GIVEN IN THE AM SHIFT. CALVIN MCKINLEY ORDERED; CHANGE FROM ORAL MEDS TO IV POTASSIUM SAME DOSAGE (20MEQ) AND FREQUENCY (BID). WILL CARRY OUT ORDERED. IRRIGATION WORKER MADE AWARE.
--- NOTE | 2021-04-20 19:30 | NUR ---
RN OPENING NOTES: RECEIVED PT A/OX1-2 IN BED RESTING COMFORTABLY. PATIENT IN NO S/SX OF ACUTE DISTRESS AT THIS TIME. NO SOB NOTED. PATIENT'S BREATHING IS EVEN AND UNLABORED. PATIENT IS ON ROOM AIR; TOLERATING WELL. PATIENT ON REGULAR DIET BUT CURRENTLY ON HOLD DUE TO ASPIRATION RISKS; MD AWARE. NOTED IV SITE ON L UA MIDLINE #18 ; PATENT, INTACT AND FLUSHING WELL; NO S/S OF INFECTION OR INFILTRATION. WITH IV FLUID RUNNING ORDERED. WITH BILATERAL SOFT RESTRAINTS IN PLACED, MONITORED AND ASSESSED PER PROTOCOL. SAFETY MEASURES HAVE BEEN PROVIDED AND IMPLEMENTED. PATIENT BED ALARM IS ON. HEAD OF BED ELEVATED. BED IS LOCKED, IN LOWEST POSITION AND SIDE RAILS UP. CALL LIGHT WITHIN REACH OF THE PATIENT. APPLICABLE ISOLATION PRECAUTIONS IN PLACE. WILL CONTINUE TO MONITOR AND REASSESS FOR ANY CHANGES AND WILL CARRY OUT ANY ONGOING AND ACTIVE MD ORDER.
--- NOTE | 2021-04-20 19:30 | NUR ---
RN REI CLOSING NOTE PT STILL A/Ox1, VERY CONFUSED, HIGH ASPIRATION RISK, AWARE, NO PO MEDS GIVEN. K+ : PT REDRAW FOR BMP TODAY UNABLE TO OBTAIN D/T PT BEING HARD STICK, 2 FAILED ATTEMPTS BY 2 DIFFERENT PHLEBOTOMISTS. CREATIVE WRITING TEACHER LINE CONSTRUCTION SUPERINTENDENT MADE AWARE. PT ON BILAT SOFT WRIST RESTRAINTS FOR PT SAFETY, CMS INTACT. ALL PT SAFETY PRECAUTIONS IN PLACE, VJ ENDORSED TO CREATIVE WRITING TEACHER RN
[2021-04-20 20:00] VITALS: BP 104/58
[2021-04-20] MEDS ORDERED: POTASSIUM CHLORIDE 10 MEQ/50 ML PREMIXED IVPB FOR PERIPHERAL LINE IV SCH (20:30)
[2021-04-20] MEDS: POTASSIUM CHLORIDE 10 MEQ/50 ML PREMIXED IVPB FOR PERIPHERAL LINE IV SCH (20:44)
--- NOTE | 2021-04-20 20:45 | NUR ---
RN NOTES NOELLE DUR SCHEDULED FOR 2100 NOT GIVEN PT IS ALTERED & CONFUSED. SYSTEM ADMINISTRATION ADVISOR AND MD AWARE. WILL CONTINUE TO MONITOR THROUGHOUT THE SHIFT.
[2021-04-20] MEDS: LORAZEPAM INJ 2 MG/ML VIAL IV PRN (20:47)
[2021-04-20 22:54] LABS: CALCIUM, SERUM 7.2 mg/dL (8.5-10.1); CREATININE 0.8 mg/dL (0.6-1.3)
[2021-04-20 22:58] LABS: POTASSIUM 2.7 mmol/L (3.5-5.1)
--- NOTE | 2021-04-20 23:00 | NUR ---
RN NOTES RECEIVED CALL FROM LAB;S/W JUAN - LEVEL 2.7 NOTIFIED ONCRAMIN MCKINLEY (DR. DIAZ) REGARDING LAB RESULT; NO NEW ORDERS AT THIS TIME. CLEANING PROFESSIONAL MADE AWARE.
--- NOTE | 2021-04-20 23:28 | NUR ---
RN NOTES RECEIVED CALL FROM FAMILY; NATIVIDAD (SISTER-[phone]) PROVIDED GENERAL UPDATES REGARDING THE PATIENT. DISCUSSED ABOUT CURRENT MEDS, TX AND LABS. ADVSIED PT'S RELATIVE TO CALL IN THE MORNING TO GET MORE SPECIFIC INFO FROM NATIVIDAD MCKINLEY ACKNOWLEDGED. NATIVIDAD VERY THANKFUL FOR ALL THE ASSISTANCE.
[2021-04-21] VITALS: BP 100/59
--- NOTE | 2021-04-21 | NUR ---
RN NOTES PATIENT REMAINED TO BE IN NO SIGNS OF ACUTE RESPIRATORY DISTRESS , VITAL SIGNS WNL AT THIS TIME. MEDIA STRATEGIST MADE AWARE. WILL CONTINUE TO MONITOR AND REASSESS FOR ANY CHANGES THROUGHOUT THE SHIFT.
[2021-04-21 04:00] VITALS: BP 109/65
--- NOTE | 2021-04-21 04:00 | NUR ---
RN NOTES NO NOTED CHANGES IN PATIENT CONDITION AT THIS TIME; PATIENT VITALS STABLE, NO SIGNS OF ACUTE RESPIRATORY DISTRESS. AM PATIENT CARE RENDERED. NET C DEVELOPER MADE AWARE. WILL CONTINUE TO MONITOR AND REASSESS FOR ANY CHANGES THROUGHOUT THE SHIFT.
--- NOTE | 2021-04-21 06:36 | NUR ---
RN CLOSING NOTE: PATIENT REMAINS IN ROOM IN NO SIGNS OF RESPIRATORY DISTRESS, PATIENT STILL ON ROOM AIR;TOLERATING WELL SATURATING @ >95% SP02. SAFETY MEASURES IMPLEMENTED, BED IN LOWEST POSITION, LOCKED, SIDE RAILS UP, CALL LIGHT WITHIN REACH. ALL NEEDS AND ORDERS ADDRESSED DURING THE SHIFT. IV ACCESS MAINTAINED INTACT, SECURED AND FLUSHING WELL. ALL DUE MEDS GIVEN ORDERED & SCHEDULED ; PATIENT TOLERATED WELL. PATIENT KEPT CLEAN AND COMFORTABLE WITHIN THE SHIFT. PATIENT ENDORSED TO INCOMING SHIFT RN WITH STABLE VITAL SIGN AND FOR CONTINUITY OF CARE.
--- NOTE | 2021-04-21 07:56 | NUR ---
TELE/RN OPENING NOTE: RECEIVED PATIENT REMAINS IIN BED, PATIENT STILL ON ROOM AIR;TOLERATING WELL SATURATING @ >95% SP02. SAFETY MEASURES IMPLEMENTED, BED IN LOWEST POSITION, LOCKED, SIDE RAILS UP, CALL LIGHT WITHIN REACH. ALL NEEDS AND ORDERS ADDRESSED DURING THE SHIFT. IV ACCESS MAINTAINED INTACT, SECURED AND FLUSHING WELL. WILL CONTINUE TO MONITOR.
[2021-04-21] MEDS: AMLODIPINE BESYLATE 5 MG TABLET PO SCH (09:00)
[2021-04-21] MEDS: DULOXETINE HCL 20 MG CAPSULE.DR PO SCH ×2 (10:14→18:24)
[2021-04-21] MEDS: FAMOTIDINE (20 MG) 20 MG TABLET PO SCH (10:14)
[2021-04-21] MEDS: GABAPENTIN 100 MG CAPSULE PO SCH ×3 (10:14→18:24)
[2021-04-21] MEDS: OXCARBAZEPINE 150 MG TABLET PO SCH ×2 (10:14→18:25)
[2021-04-21] MEDS: POTASSIUM CHLORIDE 10 MEQ/50 ML PREMIXED IVPB FOR PERIPHERAL LINE IV SCH (10:15)
[2021-04-21] MEDS: CEFTRIAXONE 1 G in IV D5W 50 ML IV SCH (10:18)
[2021-04-21] MEDS: THEOPHYLLINE ANHYDROUS 100 MG TAB.SR.12H PO SCH ×2 (10:18→20:35)
[2021-04-21] MEDS: HEPARIN SODIUM, PORCINE 5000 UNITS/1 ML VIAL SQ SCH ×2 (10:42→18:29)
[2021-04-21] MEDS ORDERED: POTASSIUM CL. PREMIX PERIPHER. 50 ML IV SCH (13:00)
[2021-04-21] MEDS: ENSURE ENLIVE 237 ML LIQUID (VANILLA) PO SCH ×2 (13:13→17:00)
[2021-04-21 15:47] VITALS: BP 103/71
[2021-04-21 17:10] VITALS: BP 114/89
[2021-04-21] MEDS: POTASSIUM CHLORIDE 20 MEQ POWDER PACKET PO SCH (18:25)
[2021-04-21] MEDS: IV NS 0.9% 1,000 ML IV PRN ×2 (18:30)
--- NOTE | 2021-04-21 19:30 | NUR ---
TELE/RN CLOSING NOTE: PATIENT REMAINS IIN BED, PATIENT STILL ON ROOM AIR;TOLERATING WELL SATURATING @ >95% SP02. SAFETY MEASURES IMPLEMENTED, BED IN LOWEST POSITION, LOCKED, SIDE RAILS UP, CALL LIGHT WITHIN REACH. ALL NEEDS AND ORDERS ADDRESSED DURING THE SHIFT. IV ACCESS MAINTAINED INTACT, SECURED AND FLUSHING WELL. WILL ENDORSE TO THE NEXT SHIFT FOR VJ.
[2021-04-21 20:00] VITALS: BP 88/45
--- NOTE | 2021-04-21 21:00 | NUR ---
B/P 88/45. Pt refused blood draw. Flushed GORDON midline and attempted to draw back but no blood return. L arm noted to be more swollen than R arm. Contacted Dr. MCKINLEY ordered Duplex GORDON to check for midline placement, then 1L NS bolus once placement is confirmed. and one time only midodrine 10mg PO NOW
[2021-04-21] MEDS ORDERED: MIDODRINE HCL (5MG) 5 MG TABLET PO ONE (22:00)
--- NOTE | 2021-04-21 22:05 | NUR ---
called vascular cardiovascular specialist regarding stat GORDON duplex
--- NOTE | 2021-04-21 23:00 | NUR ---
Vascular cardiograph operator in room taking duplex GORDON to check for midline placement.
--- NOTE | 2021-04-21 23:49 | NUR ---
called after hours radiology reading to verify if GORDON midline is in place d/t only indicating that there is no thrombus in LUE. Dr. kilgore notified and stated that he could see the midline and will make an addendum to note.
[2021-04-22] VITALS: BP 92/58
[2021-04-22] MEDS ORDERED: IV NS 0.9% 1,000 ML IV ONE
[2021-04-22 04:00] VITALS: BP 99/63
--- NOTE | 2021-04-22 04:56 | NUR ---
BP went up to 99/63
--- NOTE | 2021-04-22 07:11 | NUR ---
Patient has been A&Ox2. BP improved with NS bolus and midodrine. Been Afib on monitor 125 on highest but quickly went back down to 100. had 2 episodes of diarrhea. cleaned well. GORDON currently infusing NS at 75cc/hr flushed and patent. Turned q2h, keot clean and dry. Zguard used for periarea, mepilex to sacrum.
[2021-04-22 07:20] LABS: CALCIUM, SERUM 6.5 mg/dL (8.5-10.1); CREATININE 0.6 mg/dL (0.6-1.3); MAGNESIUM 1.4 mg/dL (1.8-2.4); PHOSPHORUS 2.4 mg/dL (2.5-4.9)
[2021-04-22 07:26] LABS: POTASSIUM 2.4 mmol/L (3.5-5.1)
[2021-04-22 08:00] VITALS: BP 119/73
--- NOTE | 2021-04-22 08:05 | NUR ---
RN MICHELLE MIRANDA, PAVING CREW FOREMAN, GOT A CALL FROM THE LAB AT 0740 FOR A CRITICAL LAB RESULT. K+ OF 2.4 MD UREÑA IS MADE AWARE.
[2021-04-22] MEDS: AMLODIPINE BESYLATE 5 MG TABLET PO SCH (09:00)
[2021-04-22] MEDS: ENSURE ENLIVE 237 ML LIQUID (VANILLA) PO SCH ×3 (09:00→17:32)
[2021-04-22] MEDS: POTASSIUM CHLORIDE 20 MEQ POWDER PACKET PO SCH ×2 (09:00→17:28)
[2021-04-22] MEDS: GABAPENTIN 100 MG CAPSULE PO SCH ×3 (09:00→17:28)
[2021-04-22] MEDS: OXCARBAZEPINE 150 MG TABLET PO SCH ×2 (09:00→17:28)
[2021-04-22] MEDS: FAMOTIDINE (20 MG) 20 MG TABLET PO SCH (09:00)
[2021-04-22] MEDS: DULOXETINE HCL 20 MG CAPSULE.DR PO SCH ×2 (09:00→17:28)
[2021-04-22] MEDS: THEOPHYLLINE ANHYDROUS 100 MG TAB.SR.12H PO SCH ×2 (09:00→20:08)
[2021-04-22] MEDS: CEFTRIAXONE 1 G in IV D5W 50 ML IV SCH (09:04)
[2021-04-22] MEDS ORDERED: POTASSIUM CHLORIDE 20 MEQ TAB.PRT.SR PO ONE (09:30)
[2021-04-22] MEDS ORDERED: K PHOS NEUTRAL 250 MG TABLET PO ONE (10:00)
[2021-04-22] MEDS: HEPARIN SODIUM, PORCINE 5000 UNITS/1 ML VIAL SQ SCH ×2 (10:01→17:29)
[2021-04-22] MEDS: POTASSIUM CL. PREMIX PERIPHER. 50 ML IV SCH ×4 (10:07→16:17)
[2021-04-22] MEDS ORDERED: POTASSIUM CHLORIDE 20 MEQ POWDER PACKET GT SCH (10:30)
[2021-04-22 12:00] VITALS: BP 106/44
[2021-04-22] MEDS: Magnesium 1GM/D5W 100ML PREMIX 100 ML IV SCH ×4 (13:36→18:01)
[2021-04-22 16:00] VITALS: BP 107/48
[2021-04-22] MEDS: MEROPENEM 1 G in IV NS 0.9% 100 ML IV SCH ×2 (17:28→23:04)
--- NOTE | 2021-04-22 18:36 | NUR ---
END OF SHIFT SUMMARY PATIENT IS A/O X2. ON ROOM AIR, IN NO APPARENT DISTRESS. DENIES ANY PAIN AND DISCOMFORT. IV ACCESS ON GORDON MIDLINE, INTACT AND PATENT, NS RUNNING AT 75 ML/HR. NO SIGNS OF INFILTRATION. TELE READING SHOWS AFIB CONTROLLED. DUE MEDS GIVEN ORDERED. ABLE TO MAKE NEEDS KNOWN. PT WAS COOPERATIVE/UNCOOPERATIVE AT THE SAME TIME. REFUSED MEDS MORNING AND NOON. EXPLAINED RISKS AND BENEFITS. PT VERBALIZED UNDERSTANDING. SAFETY MEASURES MAINTAINED. BED IN LOWEST POSITION, BRAKES LOCKED. SIDE RAILS UP X2. KEPT CALL LIGHT WITHIN REACH. WILL ENDORSE CONTINUITY OF CARE TO ONCOMING SHIFT.
--- NOTE | 2021-04-22 19:30 | NUR ---
SET UP TECHNICIAN OPENING NOTE RECEIVED PT AWAKE IN BED. A/O X2. PT IS STABLE ON ROOM AIR. NO SOB OR S/S OF RESPIRATORY DISTRESS NOTED. PT DENIES ANY PAIN AND DISCOMFORT AT THIS TIME. PT IS ON EXTERNAL TRANSFER CLERK READING AFIB CONTROLLED. IV ACCESS IS IN GORDON MIDLINE, INTACT AND PATENT, NS RUNNING @ 75 ML/HR. SAFETY PRECAUTIONS MAINTAINED. BED IN LOWEST LOCKED POSITION, HOB ELEVATED, SIDE RAILS UP X2. CALL LIGHT AND TABLE WITHIN REACH. WILL CONTINUE WITH PLAN OF CARE.
[2021-04-22 20:00] VITALS: BP 90/46
[2021-04-22] MEDS: ACETAMINOPHEN 325 MG TABLET PO PRN (21:39)
--- NOTE | 2021-04-22 22:00 | NUR ---
RN NOTE INSERTED HAIDER CATHETER PER DR YOUNG'S ORDER. PT TOLERATED PROCEDURE WELL. CLEAR YELLOW URINE PRODUCED 20ML. WILL CONTINUE TO MONITOR.
[2021-04-23] VITALS: BP 93/45
[2021-04-23 04:00] VITALS: BP 87/50
--- NOTE | 2021-04-23 06:19 | NUR ---
AOC DIRECTOR COMBAT OPERATIONS OFFICER CLOSING NOTE PT IS AWAKE IN BED. A/O X2. PT IS STABLE ON ROOM AIR. NO SOB OR S/S OF RESPIRATORY DISTRESS NOTED. PT DENIES ANY PAIN AND DISCOMFORT AT THIS TIME. PT IS ON EXTERNAL COMMUNITY SUPPORT WORKER READING AFIB CONTROLLED. IV ACCESS IS IN GORDON MIDLINE, INTACT AND PATENT, NS RUNNING @ 75 ML/HR. ALL NEEDS HAVE BEEN MET. PAIN MANAGEMENT AND WOUND CARE ADMINISTERED PER ORDER. SAFETY PRECAUTIONS MAINTAINED AT ALL TIMES. BED IN LOWEST LOCKED POSITION, HOB ELEVATED, SIDE RAILS UP X2. CALL LIGHT AND TABLE WITHIN REACH. WILL ENDORSE TO ONCOMING NURSE FOR VJ.
--- NOTE | 2021-04-23 07:47 | NUR ---
PROGRESSIVE DIE MAKER OPENING NOTE RECEIVED PT ASLEEP IN BED. A/O X2. NO SOB OR S/S OF RESPIRATORY DISTRESS NOTED. PT TOLERATING WELL ON ROOM AIR. PT WITH EXTERNAL PERSONNEL COORDINATOR READING AFIB CONTROLLED. IV ACCESS IS IN GORDON MIDLINE, INTACT AND PATENT, NS RUNNING @ 75 ML/HR. SAFETY PRECAUTIONS IN PLACE WITH BED LOCKED IN LOW POSITION AND SIDE RAILS UP X2. CALL LIGHT AND TABLE WITHIN REACH. WILL CONTINUE TO MONITOR PATIENT THROUGHOUT SHIFT.
[2021-04-23 08:00] VITALS: BP 87/50
[2021-04-23] MEDS: AMLODIPINE BESYLATE 5 MG TABLET PO SCH (09:00)
[2021-04-23] MEDS: THEOPHYLLINE ANHYDROUS 100 MG TAB.SR.12H PO SCH ×4 (09:05→22:17)
[2021-04-23] MEDS: GABAPENTIN 100 MG CAPSULE PO SCH ×3 (09:05→16:27)
[2021-04-23] MEDS: MEROPENEM 1 G in IV NS 0.9% 100 ML IV SCH ×3 (09:05→23:28)
[2021-04-23] MEDS: DULOXETINE HCL 20 MG CAPSULE.DR PO SCH ×2 (09:06→16:27)
[2021-04-23] MEDS: POTASSIUM CHLORIDE 20 MEQ POWDER PACKET PO SCH ×2 (09:06→16:27)
[2021-04-23] MEDS: FAMOTIDINE (20 MG) 20 MG TABLET PO SCH (09:06)
[2021-04-23] MEDS: OXCARBAZEPINE 150 MG TABLET PO SCH ×2 (09:10→16:27)
[2021-04-23] MEDS: ENSURE ENLIVE 237 ML LIQUID (VANILLA) PO SCH ×3 (09:10→17:00)
[2021-04-23] MEDS: HEPARIN SODIUM, PORCINE 5000 UNITS/1 ML VIAL SQ SCH ×2 (09:12→16:27)
[2021-04-23 12:00] VITALS: BP 89/48
[2021-04-23 16:00] VITALS: BP 94/48
[2021-04-23] MEDS: IV NS 0.9% 1,000 ML IV PRN (16:16)
--- NOTE | 2021-04-23 18:30 | NUR ---
SCHOOL ATHLETIC DIRECTOR NOTE RECEIVED PT FROM REI, AWAKE, A/O X 3. ON ROOM AIR, TOLERATING WELL. NO SOB NOTED. NOT IN DISTRESS. WITH NO COMPLAINTS OF PAIN OR DISCOMFORT AT THIS TIME. WITH IV ACCESS AT LEFT UPPER ARM MIDLINE WITH NS AT 75ML/HR. SAFETY MEASURES IN PLACED. CALL LIGHT WITHIN REACH. BED ON LOWEST AND LOCKED POSITION. ON BILATERAL SOFT RESTRAINTS. WILL ENDORSE TO BUSH AND VINE FRUIT CROP FARMER FOR VJ.
--- NOTE | 2021-04-23 18:40 | NUR ---
TELE TRANSFER NOTE PATIENT WAS TRANSFERRED TO [facility] ROOM 326-1 WITH STABLE VITAL SIGNS. PATIENT WAS TRANSPORTED TO UNIT WITH ALL BELONGINGS AND CHART. REPORT GIVEN AT BEDSIDE TO HENRIQUE SPRINGER.
--- NOTE | 2021-04-23 19:15 | NUR ---
RN NOTES: -PATIENT WAS TRANSFER IN FROM [facility] [place] MED SURG AT AROUND 1830. -RECEIVED AWAKE IN BED, OBESE PATIENT LYING FLAT, ON ROOM AIR SPO2-98%, NON LABORED BREATHING, NO SIGN OF RESPIRATORY DISCOMFORT, ON TELE MONITOR SR/A.FIB CONTROLLED RATE -90, ON HAIDER CATH DRAINING INTO YELLOWISH COLORED URINE AT 100CC LEVEL, GORDON MIDLINE, WITH IVF OF NS AT 75 ML/HR ONGOING, PER ENDORSEMENT SHE REFUSE BLOOD DRAW FROM [facility] [place], WILL TRY AGAIN LATER, FOR BLOOD TEST AND STOOL EXAM. SHE HAS BILATERAL SOFT RESTRAINT, CIRCULATION MONITORED. -FALL,SAFETY AND ASPIRATION PRECAUTION OBSERVED.KEPT CALL LIGHT WITHIN EASY REACH.
[2021-04-23 20:00] VITALS: BP 112/55
[2021-04-23] MEDS: ALBUTEROL FS 2.5 MG/3 ML VIAL.NEB NEB SCH (20:09)
--- NOTE | 2021-04-23 20:41 | NUR ---
RN NOTES: DUE MEDICATION SCANNED,RN WAS ABOUT TO GIVE IT TO HER WITH APPLE SAUCE, WHEN RN EXPLAINED TO HER WE NEED TO ELEVATE HER BED AND ILL GIVE THE MEDICATION, SHE STARTED SAID "NO DO NOT ELEVATE THE BED", EXPLAINED TO HER SHE CANNOT TAKE THE MEDICATION IF HER BED IS LOW,HIGH RISK FOR ASPIRATION AND CHOKING, SHE SAID "NO I DONT WANT IT ELEVATED", WILL TRY TO OFFER AGAIN A LITTLE BIT LATER.
--- NOTE | 2021-04-23 22:14 | NUR ---
RN NOTES: RN OFFERED AGAIN TO GIVE HER MEDICATION SHE REFUSED, SHE WANTS TO GO TO SLEEP. Addendum: 04/23/21 at 2358 by RIN TAYLOR RN ADDED NOTES: CHARGE NURSE NOTIFIED TRIED TO OFFER MEDS AGAIN BUT PATIENT STRONGLY REFUSED.
--- NOTE | 2021-04-23 23:57 | NUR ---
RN NOTES: 2ND [employer]OEMAKER CUSTOM CAME FOR BLOOD EXTRACTION, PATIENT IS HARD STICK, SHE WAS CRYING WHILE NATURAL RESOURCE OFFICER TRY TO EXTRACT HER BLOOD.TRY TO PACIFY PATIENT.
[2021-04-24] VITALS: BP 105/40
[2021-04-24 00:15] LABS: BASOPHILS % (AUTO) 0.4 % (0.0-2.0); EOSINOPHILS % (AUTO) 3.2 % (0.0-6.0); HEMATOCRIT 28 % (33-45); HEMOGLOBIN 8.8 g/dL (11.5-14.8); LYMPHOCYTES # (AUTO) 1.7 K/uL (0.8-4.8); LYMPHOCYTES % (AUTO) 23.1 % (20.0-44.0); MEAN CORPUSCULAR HGB CONC 31 g/dl (31.0-36.0); MEAN CORPUSCULAR VOLUME 71 fL (82-100); MONOCYTES # (AUTO) 0.6 K/uL (0.1-1.30); MONOCYTES % (AUTO) 8.4 % (2.0-12.0); NEUTROPHILS # (AUTO) 4.8 K/uL (1.8-8.9); NEUTROPHILS % (AUTO) 64.9 % (43.0-81.0); PLATELET COUNT (AUTO) 203 K/uL (150-450); RED BLOOD CELL COUNT(AUTO) 3.97 MIL/uL (4.0-5.2); WHITE BLOOD COUNT (AUTO) 7.3 K/uL (4.3-11.0)
[2021-04-24 00:26] LABS: CALCIUM, SERUM 6.9 mg/dL (8.5-10.1); CREATININE 0.6 mg/dL (0.6-1.3); MAGNESIUM 1.9 mg/dL (1.8-2.4); POTASSIUM 2.9 mmol/L (3.5-5.1)
[2021-04-24 00:29] LABS: PHOSPHORUS 0.8 mg/dL (2.5-4.9)
--- NOTE | 2021-04-24 00:41 | NUR ---
RN NOTES: -RECEIVED CALL FROM LAB, CRITICAL LOW RESULT OF PHOSPHORUS-0.8, POTASSIUM RESULT FROM 2.4 NOW IT IS 2.9, IMMEDIATELY RELATED TO DR. DIAZ, ORDER TO GIVE POTASSIUM PHOSPATE 30 MMOL X 1. NOTED AND CARRIED OUT.
[2021-04-24] MEDS ORDERED: POTASSIUM PHOSPHATE MM 7.5 MMOL in IV NS 0.9% 100 ML IV SCH (01:00)
--- NOTE | 2021-04-24 01:27 | NUR ---
RN NOTES: --CALLED PHARMACY SPOKE WITH GUEVARA , ORDER WAS VERIFIED, 4 BAGS=30 MMOL --FAXED ORDER TO [facility] [place]. CHAIN PEGGER AND F/U WITH A CALL, SPOKE WITH RICHARD, MEDICATION NOT AVAILABLE IN STOCK, SHE ASK IF ITS STAT OR CAN BE GIVEN IN THE MORNING. -F/U WITH DR. DIAZ, HE AGREED IT CAN BE GIVEN IN THE MORNING --NURSING CHAIN PEGGER MADE AWARE --CALLED PHARMACY AGAIN, SPOKE WITH GUEVARA, NOTIFIED MEDICATION CAN BE GIVEN IN THE MORNING. Addendum: 04/24/21 at 0132 by RIN TAYLOR RN ADDED NOTES: -CHARGE NURSE IS AWARE IT WILL BE GIVEN IN THE MORNING.
[2021-04-24 04:00] VITALS: BP 108/51
--- NOTE | 2021-04-24 06:29 | NUR ---
RN NOTES: --MORNING CARE DONE, SPONGE BATH RENDERED WITH THE HELP OF 4 STAFF TO REPOSITION, DRESSING DONE ON ABDOMEN AND SACRAL AREA.HAD LARGE BM , SOFT IN CONSISTENCY, SPECIMEN COLLECTED AND SEND TO LAB. --WEIGHT-257 --RECEIVED CALL FROM LAB SPOKE WITH MARIVEL UNABLE TO COLLECT BLOOD, SHE IS HARD STICK WILL SEND ANOTHER MANAGER FIELD LATER.CONFIRMED STOOL SPECIMEN RECEIVED IN LAB
--- NOTE | 2021-04-24 07:02 | NUR ---
RN NOTES: ASLEEP IN BETWEEN, NOTIFIED HER SISTER CALLED AROUND 0545, SHE GO BACK TO SLEEP, REPOSITIONED, KEPT COMFORTABLE IN BED, RECEIVED CALL FROM PHARMACY MEDICATION WILL BE DELIVERED. --ENDORSED FOR CONTINUITY OF CARE.
[2021-04-24] MEDS: LORAZEPAM INJ 2 MG/ML VIAL IV PRN (07:21)
--- NOTE | 2021-04-24 07:27 | NUR ---
RN OPENING NOTE- PT YELLING CRYING AGITATED. ORIENTED TO PERSON ONLY. WRIST RESTRAINTS IN PLACE TO PREVENT REMOVING MEDICAL IV ETC. ATIVAN 1 MG ADMINISTERED IV FOR AGITATION. REPOSITIONED. NEEDS ATTENDED. MIDLINE GORDON PATENT.SIDE RAILS UP, BED LOCKED. MONITOR AND ASSIST
[2021-04-24] MEDS: ALBUTEROL FS 2.5 MG/3 ML VIAL.NEB NEB SCH ×4 (07:35→19:10)
[2021-04-24] MEDS: POTASSIUM PHOSPHATE MM 7.5 MMOL in IV NS 0.9% 100 ML IV SCH ×3 (07:48→13:38)
[2021-04-24 08:00] VITALS: BP 108/62
[2021-04-24] MEDS: MEROPENEM 1 G in IV NS 0.9% 100 ML IV SCH ×2 (08:10→17:39)
[2021-04-24] MEDS: AMLODIPINE BESYLATE 5 MG TABLET PO SCH (09:00)
[2021-04-24] MEDS: HEPARIN SODIUM, PORCINE 5000 UNITS/1 ML VIAL SQ SCH ×2 (09:19→17:33)
[2021-04-24] MEDS: OXCARBAZEPINE 150 MG TABLET PO SCH ×2 (09:19→17:33)
[2021-04-24] MEDS: GABAPENTIN 100 MG CAPSULE PO SCH ×3 (09:19→17:33)
[2021-04-24] MEDS: FAMOTIDINE (20 MG) 20 MG TABLET PO SCH (09:19)
[2021-04-24] MEDS: DULOXETINE HCL 20 MG CAPSULE.DR PO SCH ×2 (09:19→17:33)
[2021-04-24] MEDS: POTASSIUM CHLORIDE 20 MEQ POWDER PACKET PO SCH ×2 (09:19→17:32)
[2021-04-24] MEDS: ENSURE ENLIVE 237 ML LIQUID (VANILLA) PO SCH ×3 (09:27→17:39)
[2021-04-24] MEDS: THEOPHYLLINE ANHYDROUS 100 MG TAB.SR.12H PO SCH ×2 (09:30→21:20)
[2021-04-24 12:00] VITALS: BP 107/60
[2021-04-24] MEDS ORDERED: IV LR 1000 ML 1,000 ML IV SCH (12:00)
[2021-04-24] MEDS: METRONIDAZOLE 500 MG TABLET PO SCH ×2 (13:08→21:19)
--- NOTE | 2021-04-24 15:00 | NUR ---
RN NOTE- NOTED EDEMATOUS LUE. CHECK OF IV SITE SHOWS INFILTRATION OF MIDLINE. IV STOPPED IMMEDIATELY. ELEVATED. REMOVED MIDLINE.
[2021-04-24] MEDS ORDERED: POTASSIUM CHLORIDE 20 MEQ TAB.PRT.SR PO STA (15:49)
[2021-04-24 16:00] VITALS: BP 89/59
--- NOTE | 2021-04-24 17:24 | NUR ---
RN NOTE- IV MIDLINE INSERTED BY SANDOR LEYVA. IVF RESTARTED LR@75/HR
--- NOTE | 2021-04-24 18:48 | NUR ---
RN CLOSING NOTE- PT EATING IN BED, PO INTAKE FAIR, TOOK PO MEDS , IVF LR INFUSING AT 75/HR. MIDLINE TO MINISTERIO PATENT. CLEANED PT W LAB CLERK, DRESSING CHANGED TO BUTTOCKS AND SACRAL AREA. ZGAURD APPLIED. LUE ELEVATED W PILLOWS. EDEMA DECREASING. SIDE RAILS UP, BED LOCKED. NEEDS ATTENDED.
--- NOTE | 2021-04-24 19:10 | NUR ---
pt refused breathing tx at this time Addendum: 04/24/21 at 1911 by MARIO LOWE RT Amended: Links added.
--- NOTE | 2021-04-24 19:50 | NUR ---
MS RN OPENING NOTE PATIENT SLEEPING IN BED, EASILY AWAKENED, ALERT/ORIENTED X 1-2. PT STABLE ON RA, NO S/S OF DISTRESS OR SOB NOTED, BREATHING EVEN & UNLABORED. MINISTERIO MIDLINE INTACT AND RUNNING LR @ 75 ML/HR. SAFETY MEASURES IN PLACE: CALL LIGHT WITHIN REACH, BED ALARM ON, SIDE RAILS UP X 3, BED LOCKED IN LOW POSITION, HOB ELEVATED. WILL CONTINUE TO MONITOR PATIENT
[2021-04-24 20:13] VITALS: BP 92/64
[2021-04-24 22:36] LABS: BASOPHILS % (AUTO) 0.7 % (0.0-2.0); EOSINOPHILS % (AUTO) 3.6 % (0.0-6.0); HEMATOCRIT 30 % (33-45); HEMOGLOBIN 9.3 g/dL (11.5-14.8); LYMPHOCYTES # (AUTO) 2.3 K/uL (0.8-4.8); LYMPHOCYTES % (AUTO) 31.9 % (20.0-44.0); MEAN CORPUSCULAR HGB CONC 31 g/dl (31.0-36.0); MEAN CORPUSCULAR VOLUME 71 fL (82-100); MONOCYTES # (AUTO) 0.8 K/uL (0.1-1.30); MONOCYTES % (AUTO) 11.4 % (2.0-12.0); NEUTROPHILS # (AUTO) 3.7 K/uL (1.8-8.9); NEUTROPHILS % (AUTO) 52.4 % (43.0-81.0); PLATELET COUNT (AUTO) 229 K/uL (150-450); RED BLOOD CELL COUNT(AUTO) 4.22 MIL/uL (4.0-5.2)
[2021-04-24 23:16] LABS: CALCIUM, SERUM 7.3 mg/dL (8.5-10.1); CREATININE 0.7 mg/dL (0.6-1.3); MAGNESIUM 1.8 mg/dL (1.8-2.4); PHOSPHORUS 1.3 mg/dL (2.5-4.9)
[2021-04-25] MEDS: MEROPENEM 1 G in IV NS 0.9% 100 ML IV SCH ×3 (00:09→19:05)
[2021-04-25 00:41] LABS: EOSINOPHILS % (MANUAL) 6 % (0-4); LYMPHOCYTES % (MANUAL) 25 % (16-48); METAMYELOCYTES % 1 % (0-0); MONOCYTES % (MANUAL) 8 % (0-11.0); NEUTROPHILS % (MANUAL) 60 (42-76)
[2021-04-25 02:50] VITALS: BP 109/60
[2021-04-25 04:47] VITALS: BP 93/59
[2021-04-25] MEDS: METRONIDAZOLE 500 MG TABLET PO SCH ×3 (05:46→20:19)
[2021-04-25] MEDS: ALBUTEROL FS 2.5 MG/3 ML VIAL.NEB NEB SCH ×4 (07:35→20:05)
--- NOTE | 2021-04-25 07:43 | NUR ---
MS RN CLOSING NOTES PATIENT SLEEPING IN BED, PT STABLE ON RA, NO S/S OF DISTRESS OR SOB NOTED, BREATHING EVEN & UNLABORED. MEDICATIONS GIVEN ORDERED, PT NEEDS MET THROUGHOUT SHIFT, WOUND CARE DONE. SAFETY MEASURES IN PLACE: CALL LIGHT WITHIN REACH, BED ALARM ON, SIDE RAILS UP X 3, BED LOCKED IN LOW POSITION, HOB ELEVATED. ENDORSED TO DAY SHIFT NURSE FOR CONTINUITY OF CARE
[2021-04-25 08:00] VITALS: BP 118/67
[2021-04-25] MEDS: THEOPHYLLINE ANHYDROUS 100 MG TAB.SR.12H PO SCH ×2 (09:00→20:22)
[2021-04-25] MEDS: ENSURE ENLIVE 237 ML LIQUID (VANILLA) PO SCH ×3 (10:43→17:00)
[2021-04-25] MEDS: LORAZEPAM INJ 2 MG/ML VIAL IV PRN (10:44)
[2021-04-25] MEDS: ACETAMINOPHEN 325 MG TABLET PO PRN ×2 (10:46→20:19)
[2021-04-25] MEDS: DULOXETINE HCL 20 MG CAPSULE.DR PO SCH ×2 (10:46→18:58)
[2021-04-25] MEDS: OXCARBAZEPINE 150 MG TABLET PO SCH ×2 (10:47→18:58)
[2021-04-25] MEDS: POTASSIUM CHLORIDE 20 MEQ POWDER PACKET PO SCH ×2 (10:47→18:58)
[2021-04-25] MEDS: DIPHENOXYLATE HCL/ATROP SULF 1 UDTAB TABLET PO PRN (10:47)
[2021-04-25] MEDS: HEPARIN SODIUM, PORCINE 5000 UNITS/1 ML VIAL SQ SCH ×2 (10:52→19:04)
[2021-04-25] MEDS: GABAPENTIN 100 MG CAPSULE PO SCH ×3 (10:53→18:58)
[2021-04-25] MEDS: AMLODIPINE BESYLATE 5 MG TABLET PO SCH (10:54)
[2021-04-25] MEDS: FAMOTIDINE (20 MG) 20 MG TABLET PO SCH (10:55)
[2021-04-25 15:51] LABS: CALCIUM, SERUM 6.7 mg/dL (8.5-10.1); CREATININE 0.6 mg/dL (0.6-1.3); MAGNESIUM 1.5 mg/dL (1.8-2.4); PHOSPHORUS 1.3 mg/dL (2.5-4.9)
[2021-04-25 16:24] VITALS: BP 90/46
[2021-04-25 20:00] VITALS: BP 90/52
--- NOTE | 2021-04-25 20:06 | NUR ---
RN NOTES PT HAD A MID LINE CLOG, SUPER VISOR NOTIFIED AND MIDLINE REPLACED FLUSHING PATENT WORKING WELL, ABT TREATMENT GIVEN IV NO ADVERSE REACTIONS NOTED, TOLERATED MEDICATIONS WELL, PO MEDS ALLOWED TO BE CRUSHED IN CHOCOLATE PUDDING AND THIS HELPED ENCOURAGE HER TO TAKE ALL HER MEDS THE ONES NOT ALLOWED TO BE CRUSHED KEPT WHOLE, NO ASPIRATIONS NOTED, WOUND CARE TREATMENT PROVIDED TOLERATED BUT WAS IN SOME PAIN, GIVEN MEDICATIONS TO HELP REDUCE PAIN AND EFFECTIVE, REPOSITIONED FOR COMFORT, BED LOW TO FLOOR WHEELS LOCKED , CALL LIGHT IN REACH, RELAYED INFO TO ONCOMING RN FOR REGIONAL MEDICAL DIRECTOR AND AWAITING ANY NEW ORDERS FOR DISCHARGE AT THIS TIME.
--- NOTE | 2021-04-25 21:15 | NUR ---
MS RN NOTE NOTICED THAT PATIENT'S LEFT ARM IS SWOLLEN AND WEEPING FLUID. PATIENT'S LEFT ARM WAS NOT THIS SWOLLEN AND WAS NOT WEEPING LAST NIGHT DURING MY SHIFT. CONTACTED DR. DIAZ WITH NEW ORDER FOR STAT US DOPPLER. ORDER CARRIED OUT. WILL CONTINUE TO MONITOR PATIENT
[2021-04-26] MEDS: MEROPENEM 1 G in IV NS 0.9% 100 ML IV SCH ×3 (00:54→16:08)
[2021-04-26] MEDS: Magnesium 1GM/D5W 100ML PREMIX 100 ML IV SCH ×2 (01:45→02:54)
[2021-04-26] MEDS: ACETAMINOPHEN 325 MG TABLET PO PRN ×2 (02:32→15:07)
[2021-04-26] MEDS: LORAZEPAM INJ 2 MG/ML VIAL IV PRN (02:54)
--- NOTE | 2021-04-26 02:55 | NUR ---
MS RN NOTE PATIENT MOANING IN BED, ASKED PT IF SHE WANTED TYLENOL AND SHE SAID YES. PATIENT ALSO REQUESTED ATIVAN. VITALS SIGNS WNL. MEDICATIONS GIVEN ORDERED. WILL CONTINUE TO MONITOR PATIENT
[2021-04-26] MEDS: METRONIDAZOLE 500 MG TABLET PO SCH ×4 (05:41→20:29)
[2021-04-26 06:34] LABS: BASOPHILS % (AUTO) 0.5 % (0.0-2.0); EOSINOPHILS % (AUTO) 3.9 % (0.0-6.0); HEMATOCRIT 24 % (33-45); HEMOGLOBIN 7.5 g/dL (11.5-14.8); LYMPHOCYTES # (AUTO) 1.2 K/uL (0.8-4.8); LYMPHOCYTES % (AUTO) 25.2 % (20.0-44.0); MEAN CORPUSCULAR HGB CONC 31 g/dl (31.0-36.0); MEAN CORPUSCULAR VOLUME 70 fL (82-100); MONOCYTES # (AUTO) 0.6 K/uL (0.1-1.30); MONOCYTES % (AUTO) 12.6 % (2.0-12.0); NEUTROPHILS # (AUTO) 2.7 K/uL (1.8-8.9); NEUTROPHILS % (AUTO) 57.8 % (43.0-81.0); PLATELET COUNT (AUTO) 175 K/uL (150-450); WHITE BLOOD COUNT (AUTO) 4.7 K/uL (4.3-11.0)
--- NOTE | 2021-04-26 06:40 | NUR ---
MS CLOSING NOTE PATIENT SLEEPING IN BED, PT STABLE ON RA, NO S/S OF DISTRESS OR SOB NOTED, BREATHING EVEN & UNLABORED. MINISTERIO MIDLINE INTACT AND SALINE LOCKED. US DOPPLER OF LEFT ARM NEGATIVE FOR DVT. MEDICATIONS GIVEN ORDERED, PT NEEDS MET THROUGHOUT SHIFT. SAFETY MEASURES IN PLACE: CALL LIGHT WITHIN REACH, BED ALARM ON, SIDE RAILS UP X 3, BED LOCKED IN LOW POSITION, HOB ELEVATED. WILL ENDORSE TO DAY SHIFT NURSE FOR CONTINUITY OF CARE
[2021-04-26 07:11] LABS: CALCIUM, SERUM 6.5 mg/dL (8.5-10.1); CREATININE 0.7 mg/dL (0.6-1.3); PHOSPHORUS 1.7 mg/dL (2.5-4.9)
[2021-04-26] MEDS: ALBUTEROL FS 2.5 MG/3 ML VIAL.NEB NEB SCH ×4 (07:12→19:52)
[2021-04-26 07:32] LABS: POTASSIUM 2.6 mmol/L (3.5-5.1)
[2021-04-26 08:00] VITALS: BP 97/51
[2021-04-26] MEDS: DULOXETINE HCL 20 MG CAPSULE.DR PO SCH ×2 (08:33→17:24)
[2021-04-26] MEDS: GABAPENTIN 100 MG CAPSULE PO SCH ×4 (08:33→17:24)
[2021-04-26] MEDS: OXCARBAZEPINE 150 MG TABLET PO SCH ×2 (08:34→17:24)
[2021-04-26] MEDS: FAMOTIDINE (20 MG) 20 MG TABLET PO SCH (08:34)
[2021-04-26] MEDS: ENSURE ENLIVE 237 ML LIQUID (VANILLA) PO SCH ×2 (08:34→12:37)
[2021-04-26] MEDS: POTASSIUM CHLORIDE 20 MEQ POWDER PACKET PO SCH ×2 (08:34→17:24)
[2021-04-26] MEDS: THEOPHYLLINE ANHYDROUS 100 MG TAB.SR.12H PO SCH ×2 (08:38→20:30)
[2021-04-26] MEDS: HEPARIN SODIUM, PORCINE 5000 UNITS/1 ML VIAL SQ SCH ×2 (08:50→17:31)
[2021-04-26] MEDS: AMLODIPINE BESYLATE 5 MG TABLET PO SCH (09:00)
[2021-04-26 11:45] LABS: BAND % (MANUAL) 1 % (0.0-5.0); EOSINOPHILS % (MANUAL) 2 % (0-4); LYMPHOCYTES % (MANUAL) 8 % (16-48); MONOCYTES % (MANUAL) 5 % (0-11.0); NEUTROPHILS % (MANUAL) 84 (42-76)
[2021-04-26] MEDS ORDERED: K PHOS NEUTRAL 250 MG TABLET PO ONE ×2 (12:00)
[2021-04-26] MEDS: POTASSIUM CL. PREMIX PERIPHER. 50 ML IV SCH ×4 (12:37→15:08)
[2021-04-26] MEDS: PROSOURCE / PROSTAT (PYXIS) 30 ML UDC PO SCH ×2 (14:30→17:54)
[2021-04-26] MEDS: ARGININE/GLUTAMINE/CALCIUM BMB 1 EACH POWD.PACK PO SCH ×2 (14:30→17:54)
[2021-04-26] MEDS: ENSURE ENLIVE CHOC 237 ML CAN PO SCH ×2 (14:30→17:54)
[2021-04-26 16:00] VITALS: BP 98/51
--- NOTE | 2021-04-26 16:52 | NUR ---
MS RN NOTE PATIENT IS REFUSING DRESSING CHANGES. STATES "IT DOESN'T MAKE A DIFFERENCE". ENCOURAGED PATIENT AND EDUCATED ON THE IMPORTANCE OF DRESSING CHANGES. SHE STILL DECLINED.
--- NOTE | 2021-04-26 18:00 | NUR ---
MS RN NOTE PATIENT DRANK HALF OF PROSTAT (MIXED WITH APPLE JUICE) AND HALF KARLEE (MIXED WITH WATER).
--- NOTE | 2021-04-26 18:42 | NUR ---
MS RN CLOSING NOTE PATIENT CURRENTLY LYING IN BED, NODS ON AND OFF WITH SLEEP. A/O X2. STABLE ON ROOM AIR - NO SOB NOTED. NO DISTRESS NOTED. PATIENT STATES SHE FEELS MORE COMFORTABLE WHEN SHE LIES FLAT. HAIDER CATHETER NOTED - INTACT AND PATENT, DRAINING CLEAR YELLOW URINE TO GRAVITY. IV ACCESS TO RIGHT UPPER ARM MIDLINE - SALINE LOCKED. SAFETY MEASURES IN PLACE. CALL LIGHT WITHIN REACH. WILL ENDORSE TO EDUCATION INSTRUCTOR NURSE FOR VJ.
--- NOTE | 2021-04-26 19:30 | NUR ---
RN OPENING NOTE PATIENT IN BED EYES CLOSED, EASILY AROUSED. PATIENT IS A/O X 2, PATIENT ABLE TO MAKE NEEDS KNOWN. BREATHING EVEN AND UNLABORED, TOLERATES ROOM AIR. PATIENT HAS A HAIDER CATHETER IN PLACE DRAINING YELLOW URINE. MINISTERIO MIDLINE PATENT AND INTACT, SL. SAFETY MEASURES IN PLACE: BED LOCKED AND IN LOWEST POSITION, CALL LIGHT WITHIN REACH, SIDE RAILS UP, PATIENT PREFERS LAYING FLAT ON BED. WILL MONITOR PATIENT CLOSELY.
[2021-04-26 20:00] VITALS: BP 92/48
[2021-04-26] MEDS: DAKINS QUARTER STRENGTH (0.125%) 480 ML BOTTLE TOP SCH (20:02)
[2021-04-27] MEDS: MEROPENEM 1 G in IV NS 0.9% 100 ML IV SCH ×3 (00:11→15:26)
[2021-04-27] MEDS: LORAZEPAM INJ 2 MG/ML VIAL IV PRN ×2 (01:54→19:52)
--- NOTE | 2021-04-27 01:54 | NUR ---
RN NOTE PATIENT GIVEN ATIVAN, PATIENT SCREAMING AND AGITATED.
[2021-04-27] MEDS: METRONIDAZOLE 500 MG TABLET PO SCH ×3 (05:00→20:50)
[2021-04-27 07:07] LABS: BASOPHILS % (AUTO) 0.7 % (0.0-2.0); EOSINOPHILS % (AUTO) 2.1 % (0.0-6.0); HEMATOCRIT 27 % (33-45); HEMOGLOBIN 8.4 g/dL (11.5-14.8); LYMPHOCYTES # (AUTO) 0.8 K/uL (0.8-4.8); LYMPHOCYTES % (AUTO) 17.8 % (20.0-44.0); MEAN CORPUSCULAR HGB CONC 32 g/dl (31.0-36.0); MEAN CORPUSCULAR VOLUME 70 fL (82-100); MONOCYTES # (AUTO) 0.7 K/uL (0.1-1.30); MONOCYTES % (AUTO) 14.4 % (2.0-12.0); NEUTROPHILS # (AUTO) 3.1 K/uL (1.8-8.9); PLATELET COUNT (AUTO) 224 K/uL (150-450); RED BLOOD CELL COUNT(AUTO) 3.79 MIL/uL (4.0-5.2); WHITE BLOOD COUNT (AUTO) 4.7 K/uL (4.3-11.0)
--- NOTE | 2021-04-27 07:25 | NUR ---
RN CLOSING NOTE PATIENT IN BED AWAKE, YELLING. PATIENT IS A/O X 1, PERIODS OF CONFUSED, PATIENT ABLE TO MAKE NEEDS KNOWN. BREATHING EVEN AND UNLABORED, TOLERATES ROOM AIR. PATIENT HAS A HAIDER CATHETER IN PLACE DRAINING YELLOW URINE. MINISTERIO MIDLINE PATENT AND INTACT. DRESSING CHANGED ON SACRUM, BUT PATIENT REFUSED DRESSING CHANGED ON ABD WOUND. SAFETY MEASURES MAINTAINED, ALL NEEDS MET AND ATTENDED, ALL ORDERS CARRIED OUT. ENDORSED TO DAY SHIFT NURSE FOR VJ.
[2021-04-27 07:33] LABS: CALCIUM, SERUM 6.8 mg/dL (8.5-10.1); CREATININE 0.6 mg/dL (0.6-1.3); MAGNESIUM 1.8 mg/dL (1.8-2.4); PHOSPHORUS 1.9 mg/dL (2.5-4.9)
[2021-04-27 07:39] LABS: POTASSIUM 2.8 mmol/L (3.5-5.1)
[2021-04-27] MEDS: ALBUTEROL FS 2.5 MG/3 ML VIAL.NEB NEB SCH ×4 (08:34→19:30)
[2021-04-27] MEDS: ENSURE ENLIVE CHOC 237 ML CAN PO SCH ×2 (08:59→16:22)
[2021-04-27] MEDS: ARGININE/GLUTAMINE/CALCIUM BMB 1 EACH POWD.PACK PO SCH ×2 (09:00→16:22)
[2021-04-27] MEDS: PROSOURCE / PROSTAT (PYXIS) 30 ML UDC PO SCH ×3 (09:00→16:22)
[2021-04-27] MEDS: DAKINS QUARTER STRENGTH (0.125%) 480 ML BOTTLE TOP SCH (09:00)
[2021-04-27] MEDS: FAMOTIDINE (20 MG) 20 MG TABLET PO SCH (09:00)
[2021-04-27] MEDS: DULOXETINE HCL 20 MG CAPSULE.DR PO SCH ×2 (09:00→16:22)
[2021-04-27] MEDS: AMLODIPINE BESYLATE 5 MG TABLET PO SCH (09:00)
[2021-04-27] MEDS: POTASSIUM CHLORIDE 20 MEQ POWDER PACKET PO SCH ×2 (09:00→16:22)
[2021-04-27] MEDS: GABAPENTIN 100 MG CAPSULE PO SCH ×3 (09:00→16:22)
[2021-04-27] MEDS: THEOPHYLLINE ANHYDROUS 100 MG TAB.SR.12H PO SCH ×2 (09:00→20:49)
[2021-04-27] MEDS: OXCARBAZEPINE 150 MG TABLET PO SCH ×2 (09:00→16:22)
--- NOTE | 2021-04-27 09:11 | NUR ---
MS RN NOTE MIDLINE NOT FLUSHING. UNABLE TO GIVE IV ANTIBIOTIC. AWARE. CHARGE NURSE AWARE.
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
[2021-04-27 11:02] LABS: BAND % (MANUAL) 1 % (0.0-5.0); EOSINOPHILS % (MANUAL) 2 % (0-4); LYMPHOCYTES % (MANUAL) 17 % (16-48); MONOCYTES % (MANUAL) 10 % (0-11.0); NEUTROPHILS % (MANUAL) 70 (42-76)
--- NOTE | 2021-04-27 11:30 | NUR ---
RT PATIENT AGITATED AND REFUSED TX AT THIS TIME. NO SOB NOTED. RN TIFFANIE AWARE.
[2021-04-27] MEDS ORDERED: Sodium Phosphate 30 MMOL in IV NS 0.9% 250 ML IV SCH (13:00)
[2021-04-27] MEDS: POTASSIUM CL. PREMIX PERIPHER. 50 ML IV SCH ×8 (13:24→21:55)
[2021-04-27] MEDS: ACETAMINOPHEN 325 MG TABLET PO PRN (14:45)
[2021-04-27 16:00] VITALS: BP 107/50
--- NOTE | 2021-04-27 16:01 | NUR ---
RT PATIENT AGITATED AND YELLING AT THIS TIME. TX NOT GIVEN. RN TIFFANIE AWARE. NO SOB NOTED.
--- NOTE | 2021-04-27 16:23 | NUR ---
PATIENT REFUSED 1700 MEDICATIONS. PULLED THE CUP OUT OF MY HANDS AND SCREAMED THAT SHE NEEDED HELP. STATED SHE THINKS I AM TRYING TO KILL HER. TRIED MY BEST TO REASSURE PATIENT. MD AWARE. CHARGE NURSE AWARE.
--- NOTE | 2021-04-27 18:59 | NUR ---
MS RN CLOSING NOTE PATIENT CURRENTLY LYING IN BED, NODS ON AND OFF WITH SLEEP. A/O X1-2. HAS BEEN INCREASINGLY MORE AGITATED AND CONFUSED TODAY. STABLE ON ROOM AIR - NO SOB NOTED. NO DISTRESS NOTED. PATIENT REFUSED ABOUT 80% OF MEDICATIONS TODAY AND ALL MEALS. HAIDER CATHETER NOTED - INTACT AND PATENT, DRAINING CLEAR YELLOW URINE TO GRAVITY. IV ACCESS TO LEFT UPPER ARM MIDLINE - SALINE LOCKED. SAFETY MEASURES IN PLACE. CALL LIGHT WITHIN REACH. WILL ENDORSE TO MEDICATION ADMINISTRATION PROFESSIONAL NURSE FOR VJ.
--- NOTE | 2021-04-27 19:03 | NUR ---
4 BAGS OF KCL LEFT TO INFUSE. WILL ENDORSE TO STONEWORKER NURSE FOR VJ.
--- NOTE | 2021-04-27 19:30 | NUR ---
MS RN NOTE RECEIVED PATIENT IN BED WITH EYES OPEN, VERY CONFUSED. IV POTASSIUM RUNNING @50ML/HR . NO S/S OF APPARENT DISTRESS. NOT EXHIBITING PAIN VIA FLACC. WILL CONTINUE TO MONITOR PATIENT.
[2021-04-27 20:00] VITALS: BP 140/54
--- NOTE | 2021-04-27 20:08 | NUR ---
MS RN NOTE PATIENT VERY RESTLESS, AND SCREAMING RIGHT NOW. GIVEN ATIVAN AT THIS TIME.
[2021-04-28] MEDS: MEROPENEM 1 G in IV NS 0.9% 100 ML IV SCH ×2 (00:11→07:59)
[2021-04-28] MEDS: POTASSIUM CL. PREMIX PERIPHER. 50 ML IV SCH (00:20)
[2021-04-28] MEDS: ACETAMINOPHEN 325 MG TABLET PO PRN (04:09)
[2021-04-28] MEDS: METRONIDAZOLE 500 MG TABLET PO SCH ×2 (04:09→12:50)
[2021-04-28] MEDS: DIPHENOXYLATE HCL/ATROP SULF 1 UDTAB TABLET PO PRN (04:09)
--- NOTE | 2021-04-28 04:10 | NUR ---
ms rn note patient c/o pain after abdominal dressing change. given tylenol at this time. will cont. to monitor.
--- NOTE | 2021-04-28 04:10 | NUR ---
ms rn note patient had an episode of diarrhea green colored given lomotil at this time. will cont. to monitor.
--- NOTE | 2021-04-28 06:52 | NUR ---
MS RN NOTE PATIENT IN BED. A/OX1. STILL VERY CONFUSED PATIENT TALKED TO HER SISTER NATIVIDAD. NO S/S OF DISTRESS TOLERATING ROOM AIR. NOT EXHIBITING PAIN VIA FLACC. PATIENT COMPLIANT WITH MEDICATION. NO FLUIDS RUNNING AT THIS TIME. 4 POTASSIUM BAG HANGED. ALL SCHED MEDS ADMINISTERED. NO SIGNIFICANT CHANGE SINCE LAST SHIFT. WILL ENDORSE CARE TO MORNING SHIFT RN.
--- NOTE | 2021-04-28 07:30 | NUR ---
MS RN OPENING NOTES PATIENT RECEIVED AWAKE IN BED IN NO ACUTE SIGNS OF DISTRESS. HOB ELEVATED. A/O X1-2. CONFUSED BUT VERBALLY RESPONSIVE, NO C/O PAIN AT THIS TIME. ON ROOM AIR, BREATHING EVEN AND UNLABORED. MIDLINE ON GORDON INTACT, PATENT AND FLUSHES WELL. SAFETY MEASURES IN PLACE: BED IN LOWEST LOCKED POSITION, SIDE RAILS UP X2 & CALL LIGHT WITHIN EASY REACH OF THE PATIENT. WILL CONTINUE TO MONITOR PT ACCORDINGLY.
[2021-04-28] MEDS: ALBUTEROL FS 2.5 MG/3 ML VIAL.NEB NEB SCH ×3 (07:35→15:03)
[2021-04-28 07:46] LABS: CALCIUM, SERUM 6.5 mg/dL (8.5-10.1); CREATININE 0.8 mg/dL (0.6-1.3); MAGNESIUM 1.7 mg/dL (1.8-2.4); POTASSIUM 5.5 mmol/L (3.5-5.1)
[2021-04-28 08:00] VITALS: BP 96/55
[2021-04-28] MEDS: ENSURE ENLIVE CHOC 237 ML CAN PO SCH ×2 (08:03→17:19)
[2021-04-28] MEDS: FAMOTIDINE (20 MG) 20 MG TABLET PO SCH (08:19)
[2021-04-28] MEDS: DULOXETINE HCL 20 MG CAPSULE.DR PO SCH ×2 (08:19→17:18)
[2021-04-28] MEDS: GABAPENTIN 100 MG CAPSULE PO SCH ×3 (08:19→17:18)
[2021-04-28] MEDS: OXCARBAZEPINE 150 MG TABLET PO SCH ×2 (08:19→17:18)
[2021-04-28] MEDS: PROSOURCE / PROSTAT (PYXIS) 30 ML UDC PO SCH ×3 (08:20→17:19)
[2021-04-28] MEDS: THEOPHYLLINE ANHYDROUS 100 MG TAB.SR.12H PO SCH (08:21)
[2021-04-28] MEDS: DAKINS QUARTER STRENGTH (0.125%) 480 ML BOTTLE TOP SCH (08:29)
[2021-04-28] MEDS: POTASSIUM CHLORIDE 20 MEQ POWDER PACKET PO SCH ×2 (08:30→17:00)
[2021-04-28] MEDS: ARGININE/GLUTAMINE/CALCIUM BMB 1 EACH POWD.PACK PO SCH ×2 (08:33→17:19)
[2021-04-28 09:00] VITALS: BP 96/55
[2021-04-28] MEDS: AMLODIPINE BESYLATE 5 MG TABLET PO SCH (09:00)
[2021-04-28] MEDS ORDERED: SULFAMETH/TRIMETH 800/160 MG 1 UDTAB TABLET PO SCH (10:00)
[2021-04-28] MEDS: Magnesium 1GM/D5W 100ML PREMIX 100 ML IV SCH ×2 (10:26→11:44)
[2021-04-28 12:02] LABS: BASOPHILS % (AUTO) 0.3 % (0.0-2.0); EOSINOPHILS % (AUTO) 0.1 % (0.0-6.0); HEMATOCRIT 27 % (33-45); HEMOGLOBIN 8.6 g/dL (11.5-14.8); LYMPHOCYTES # (AUTO) 0.7 K/uL (0.8-4.8); LYMPHOCYTES % (AUTO) 8.9 % (20.0-44.0); MEAN CORPUSCULAR HGB CONC 32 g/dl (31.0-36.0); MEAN CORPUSCULAR VOLUME 70 fL (82-100); MONOCYTES # (AUTO) 0.8 K/uL (0.1-1.30); MONOCYTES % (AUTO) 9.8 % (2.0-12.0); NEUTROPHILS # (AUTO) 6.3 K/uL (1.8-8.9); NEUTROPHILS % (AUTO) 80.9 % (43.0-81.0); PLATELET COUNT (AUTO) 250 K/uL (150-450); RED BLOOD CELL COUNT(AUTO) 3.88 MIL/uL (4.0-5.2); WHITE BLOOD COUNT (AUTO) 7.8 K/uL (4.3-11.0)
[2021-04-28] MEDS ORDERED: Sulfameth/Trimeth 800/160 Mg PO (12:23)
--- NOTE | 2021-04-28 18:22 | NUR ---
RN DISCHARGED NOTES PT DISCHARGED TO [facility] IN STABLE CONDITION. A/O X2-3. ABLE TO MAKE NEEDS KNOWN. V/S TAKEN , STABLE AND RECORDED. PHOTOS OF SKIN ISSUES TAKEN AND FILED ON HER CHART. ALL BELONGINGS ACCOUNTED FOR AND SIGNED FORM. MIDLINE ON GORDON ON REMOVED, NO ACTIVE BLEEDING NOTED, APPLIED DRY DRESSING AT SITE. HAIDER KEPT IN PLACE, PT DIDN'T WANT TO HAVE IT REMOVED. REPORT GIVEN EARLIER VIA TELEPHONE TO DEANDRA DONAHUE OF [facility]. PT'S SISTER NATIVIDAD CALLED AND INFORMED OF PT TRANSFERRED. PT LEFT UNIT AT 1815 VIA PHILLIPRYUNG ACCOMPANIED BY 4 EMT'S FROM [facility]. CHARGE NURSE AWARE OF DISCHARGE,
== END 2021-04-28 18:15 | DRG 720 ==
LOC: ER 22:41 → TELE-TD 04-20 07:53 → TELE1 04-20 08:49 → TELE 04-23 18:25 → MED 04-25
PROVIDERS: ADMIT Student in an Organized Health Care Education/Training Program; ATTEND Nurse Practitioner Acute Care
PROC: 05HC33Z Insertion of Infusion Device into Left Basilic Vein, Percutaneous Approach (ICD-10-PCS; principal; 2021-04-20)
PROC: 05HB33Z Insertion of Infusion Device into Right Basilic Vein, Percutaneous Approach (ICD-10-PCS; 2021-04-24)
DX: A41.9 Sepsis, unspecified organism (principal); G93.41 Metabolic encephalopathy; E43 Unspecified severe protein-calorie malnutrition; E83.39 Other disorders of phosphorus metabolism; L89.90 Pressure ulcer of unspecified site, unspecified stage; D64.9 Anemia, unspecified; S91.109A Unspecified open wound of unspecified toe(s) without damage to nail, initial encounter; E27.9 Disorder of adrenal gland, unspecified; N39.0 Urinary tract infection, site not specified; E66.01 Morbid (severe) obesity due to excess calories; E87.6 Hypokalemia; I10 Essential (primary) hypertension; K21.9 Gastro-esophageal reflux disease without esophagitis; F32.9 Major depressive disorder, single episode, unspecified; F41.9 Anxiety disorder, unspecified; E66.9 Obesity, unspecified; Z68.39 Body mass index [BMI] 39.0-39.9, adult; J44.9 Chronic obstructive pulmonary disease, unspecified; M20.41 Other hammer toe(s) (acquired), right foot; M20.42 Other hammer toe(s) (acquired), left foot; Z20.822 Contact with and (suspected) exposure to COVID-19; E78.5 Hyperlipidemia, unspecified; N21.0 Calculus in bladder; E83.42 Hypomagnesemia; Z98.890 Other specified postprocedural states; Z79.51 Long term (current) use of inhaled steroids; Z79.899 Other long term (current) drug therapy; L98.9 Disorder of the skin and subcutaneous tissue, unspecified; X58.XXXA Exposure to other specified factors, initial encounter; Y92.9 Unspecified place or not applicable; Z16.12 Extended spectrum beta lactamase (ESBL) resistance; Z91.19 Patient's noncompliance with other medical treatment and regimen; B96.4 Proteus (mirabilis) (morganii) as the cause of diseases classified elsewhere; B96.1 Klebsiella pneumoniae [K. pneumoniae] as the cause of diseases classified elsewhere
CPT/HCPCS: 36410; 36415; 70450-TC; 71045-TC; 80048-TC; 80076-TC; 81001; 82533; 82728-TC; 82962-TC; 83540-TC; 83605-TC; 83735-TC; 84100-TC; 84484-TC; 85025-TC; 85730-TC; 87040-TC; 87045-TC; 87086-TC; 87186-TC; 92526; 92611-TC; 93971-TC; 94799-TC; 97112-TC; 97530-TC; A6253; A6403; A9563; C9803; G0378; G0480; J0360; J0696; J1200; J1630; J1644; J2060; J2185; J3475; J3480; J3490; J7030; J7050; J7060; J7120; J8597; U0003

== ENCOUNTER 2021-05-19 13:21 | Inpatient (IN) | payer OTHER ==
[~2021-05-19] VITALS: Ht 170.2 cm; Wt 113.9 kg
[2021-05-19] VITALS (8 sets, daily range): BP systolic 60–183; BP diastolic 23–90
[~2021-05-19 13:21] MED LIST changes: +GABA-532 PO; -HYDR-3980 PO; +OXCA300T15 PO; -PREG50CA PO; +Sulfameth/Trimeth 800/160 Mg PO
--- NOTE | 2021-05-19 13:45 | NUR ---
BIB RA [facility] FROM [facility], CONFUSED SINCE THIS MORNING WORSENING ABDOMINAL WALL CELLULITIS. RESPIRATION REGULAR AND UNLABORED. ATTACHED TO THE MONITOR. WILL CONTINUE TO MONITOR THE PATIENT.
--- NOTE | 2021-05-19 14:05 | NUR ---
Tayla Torres sister of PT [phone] emergency contact.
--- NOTE | 2021-05-19 14:29 | NUR ---
occult blood, fecal order is received from Dr Whaley. The order is read back, verified. Noted and carried out.
--- NOTE | 2021-05-19 14:38 | NUR ---
DR DELEON AT THE BEDSIDE
--- NOTE | 2021-05-19 14:41 | NUR ---
STOOL SPECIMEN COLLECTED AND SENT TO THE LAB
[2021-05-19 15:26] LABS: BASOPHILS % (AUTO) 0.1 % (0.0-2.0); EOSINOPHILS % (AUTO) 0.2 % (0.0-6.0); HEMATOCRIT 28 % (33-45); HEMOGLOBIN 8.8 g/dL (11.5-14.8); LYMPHOCYTES # (AUTO) 0.6 K/uL (0.8-4.8); LYMPHOCYTES % (AUTO) 7.3 % (20.0-44.0); MEAN CORPUSCULAR HGB CONC 31 g/dl (31.0-36.0); MEAN CORPUSCULAR VOLUME 79 fL (82-100); MONOCYTES # (AUTO) 0.3 K/uL (0.1-1.30); MONOCYTES % (AUTO) 4.1 % (2.0-12.0); NEUTROPHILS # (AUTO) 6.9 K/uL (1.8-8.9); NEUTROPHILS % (AUTO) 88.3 % (43.0-81.0); PLATELET COUNT (AUTO) 55 K/uL (150-450); RED BLOOD CELL COUNT(AUTO) 3.56 MIL/uL (4.0-5.2); WHITE BLOOD COUNT (AUTO) 7.8 K/uL (4.3-11.0)
[2021-05-19 15:37] LABS: CARBON DIOXIDE 15 mmol/L (21-32); CHLORIDE 103 mmol/L (98-107); CREATININE 3.5 mg/dL (0.6-1.3); GLUCOSE 100 mg/dL (74-106); POTASSIUM 4.6 mmol/L (3.5-5.1); SODIUM SERUM 140 mmol/L (136-145); UREA NITROGEN, BLOOD 44 mg/dL (7-18)
[2021-05-19 15:43] LABS: ALBUMIN 1.5 g/dL (3.4-5.0); ALKALINE PHOSPHATASE 239 U/L (46-116); ASPARTATE AMINOTRANSFERASE 29 U/L (15-37); BILIRUBIN,DIRECT 0.2 mg/dL (0.0-0.2); BILIRUBIN,TOTAL 0.8 mg/dL (0.2-1.0); TOTAL PROTEIN, SERUM 5.7 g/dL (6.4-8.2)
[2021-05-19 15:53] LABS: OCCULT BLOOD STOOL NEGATIVE (NEGATIVE)
[2021-05-19] MEDS ORDERED: IV NS 0.9% 1,000 ML BAG IV ONE (16:00)
[2021-05-19] MEDS ORDERED: VANCOMYCIN 1 GM in IV D5W 250 ML IV ONE (16:00)
[2021-05-19] MEDS ORDERED: PIPERACILLIN /TAZOBACTAM 3.375 G in IV D5W 50 ML IV ONE (16:00)
[2021-05-19 16:03] LABS: ALANINE AMINOTRANSFERASE 21 U/L (12-78)
[2021-05-19] MEDS ORDERED: VANCOMYCIN 1 GM VIAL ONE (16:06)
[2021-05-19] MEDS ORDERED: PIPERACILLIN /TAZOBACTAM 3.375 G VIAL IV ONE (16:06)
--- NOTE | 2021-05-19 16:11 | NUR ---
CALLED [facility]. DR. DELEON NOW SPEAKING TO DR. NUNEZ
[2021-05-19] MEDS: DULOXETINE HCL 20 MG CAPSULE.DR PO SCH (17:00)
[2021-05-19] MEDS ORDERED: ACETAMINOPHEN 325 MG TABLET PO PRN (17:00)
[2021-05-19] MEDS: GABAPENTIN 100 MG CAPSULE PO SCH (17:00)
[2021-05-19] MEDS ORDERED: ONDANSETRON HCL/PF 4 MG/2 ML VIAL IVP PRN (17:00)
[2021-05-19] MEDS ORDERED: ALBUTEROL SULFATE INH 18 GM HFA.AER.AD IH SCH (17:00)
[2021-05-19] MEDS ORDERED: Z GUARD REMEDY 2 OZ OINT TP PRN (17:00)
[2021-05-19] MEDS ORDERED: LORAZEPAM INJ 2 MG/ML VIAL IV ONE (17:00)
[2021-05-19] MEDS ORDERED: IV D5/0.45 NACL 1,000 ML IV PRN (17:00)
[2021-05-19 17:34] LABS: BAND % (MANUAL) 4 % (0.0-5.0); EOSINOPHILS % (MANUAL) 1 % (0-4); LYMPHOCYTES % (MANUAL) 4 % (16-48); MONOCYTES % (MANUAL) 6 % (0-11.0); NEUTROPHILS % (MANUAL) 85 (42-76)
--- NOTE | 2021-05-19 18:01 | NUR ---
DR. DELEON AT BEDSIDE FOR CENTRAL LINE PLACEMENT
[2021-05-19] MEDS ORDERED: LEVETIRACETAM (500MG) 1,000 MG in IV NS 0.9% 100 ML IV STA (18:09)
[2021-05-19] MEDS ORDERED: LEVETIRACETAM (500MG) 500 MG/5 ML VIAL IV ONE ×2 (19:49→19:52)
--- NOTE | 2021-05-19 19:50 | NUR ---
LACTIC 14.1
[2021-05-19] MEDS ORDERED: NOREPINEPHRINE 8 MG in IV NS 0.9% 242 ML IV PRN ×2 (20:30→22:40)
[2021-05-19] MEDS ORDERED: THEOPHYLLINE ANHYDROUS 200 MG TAB.SR.12H PO SCH (21:00)
[2021-05-19 21:18] LABS: THYROID STIMULATING HORMONE 5.296 uIU/mL (0.358-3.74)
[2021-05-19] MEDS ORDERED: NOREPINEPHRINE 4 MG/4 ML AMPUL IV ONE (21:22)
--- NOTE | 2021-05-19 21:55 | NUR ---
SUPERVISOR [employer] NOTES RECEIVED ER ADMISSION REPORT FROM [facility]. ALL PERTINENT ADMISSION INFO REGARDING PT NOTED. WILL WAIT FOR PT TO BE TRANSFERRED TO UNIT AND ADDRESS NEEDS ACCORDINGLY. WOOL SAMPLER MADE AWARE.
--- NOTE | 2021-05-19 21:59 | NUR ---
report given to bisi wilkins
--- NOTE | 2021-05-19 22:05 | NUR ---
RN NOTES RECEIVED PT FROM ER VIA PHILLIPRYUNG ACCOMPANIED BY 2 ER STAFF AND TRANSFERRED TO BED VIA 2 PERSON ASSIST. PT IS A/OX1; NON VERBAL; PT ON ROOM AIR WITH RESPIRATIONS EVEN AND UNLABORED. COMPREHENSIVE PHYSICAL ASSESSMENT AND PATIENT CARE DONE. CALL LIGHT WITHIN REACH, SAFETY MEASURES AND ISOLATION PRECAUTION IN PLACE, WILL CONTINUE MONITOR AND ASSESS THROUGHOUT THE SHIFT. WILL CARRY OUT MD ORDERS ACCORDINGLY. BROADCAST MAINTENANCE ENGINEER MADE AWARE.
--- NOTE | 2021-05-19 22:14 | NUR ---
transferred pt to 262 per acls
--- NOTE | 2021-05-19 22:30 | NUR ---
RN NOTES RECEIVED ORDER FROM CALVIN MCKINLEY (SANDOR IRVING) LEVOPHED 8MG WITH PARAMETERS TO MAINTAIN SBP >90 & ACUTE MEDICAL RESTRAINTS TO BE MAINTAINED AND MONITORED PER PROTOCOL. WILL CARRY OUT ORDER PER MD. TELEVISION MAINTENANCE MAN MADE AWARE.
[2021-05-19] MEDS ORDERED: MEROPENEM 500 MG in IV NS 0.9% 50 ML IV ONE (23:00)
--- NOTE | 2021-05-19 23:10 | NUR ---
RN NOTES RECEIVED CALL FROM FAMILY; NATIVIDAD (SISTER-[phone]) PROVIDED GENERAL UPDATES REGARDING THE PATIENT;ADMITTED TO ICU; CURRENT V/S. NATIVIDAD PROVIDED THE INFO THAT PT IS FULLY VACCINATED FOR COVID, PT HAD HER ANNUAL FLU SHOT, BUT UNSURE IF PT HAD HER PNA SHOT. RN ACKNOWLEDGED. FAMILY WAS ADVISE TO CALL IN THE MORNING TO GET MORE CONCRETE INFO ABOUT TX PLAN FROM . NATIVIDAD ACKNOWLEDGED. ASSURED NATIVIDAD THAT WILL CALL HER FOR ANY SIGNIFICANT CHANGES OR UPDATES ABOUT PT'S CONDITION. NATIVIDAD ACKNOWLEDGED AND VERY THANKFUL.
--- NOTE | 2021-05-19 23:15 | NUR ---
RN NOTES COMMUNICATED WITH CALVIN MCKINLEY (SANDOR IRVING) ADVISED THAT PT'S CURRENTLY LETHARGIC AND THERE ARE SCHEDULED ORAL MEDS TO BE GIVEN (CYMBALTA, NEURONTIN AND NOELLE DUR) PER CALVIN MCKINLEY WE CAN HOLD THESE MEDICATIONS FOR NOW. CALVIN MCKINLEY ASKED FOR OTHER ORAL MED WHICH ARE NOT SCHEDULED AT THIS TIME , RN PROVIDED THE FOLLOWING: NORVASC, TRILEPTAL AND TYLENOL. CALVIN MCKINLEY ADVISED CALL PHARMACY TO CHECK FOR ANY FORMULARY FOR IV FOR TRILEPTAL. CALLED [facility] AND PER PHARMACY NO IV FORMULARY FOR TRILEPTAL. CALVIN MCKINLEY MADE AWARE. REAL ESTATE TRANSACTION COORDINATOR MADE AWARE.
[2021-05-19] MEDS ORDERED: MEROPENEM 500 MG VIAL IV ONE (23:17)
[2021-05-19] MEDS: NOREPINEPHRINE 8 MG in IV NS 0.9% 242 ML IV PRN (23:20)
[2021-05-19] MEDS ORDERED: NOREPINEPHRINE 8MG/250ML RTU 250 ML IV ONE (23:42)
[2021-05-20] VITALS (92 sets, daily range): BP systolic 57–155; BP diastolic 25–92
[2021-05-20] MEDS ORDERED: NOREPINEPHRINE 8MG/250ML RTU 250 ML IV ONE (02:30)
[2021-05-20] MEDS: NOREPINEPHRINE 8 MG in IV NS 0.9% 242 ML IV PRN ×3 (02:38→09:27)
--- NOTE | 2021-05-20 04:24 | NUR ---
RN NOTES PT NOTED TO BE MOANING AND VISIBLE FACIAL GRIMACE; UNABLE TO DETERMINE LOCATION OF PAIN; INFORMED ONCRAMIN MCKINLEY AND SECURED ORDER FOR TYLENOL SUPP RECT 650MG. WILL CARRY OUT ORDER. ALARM SERVICE TECHNICIAN MADE AWARE.
[2021-05-20 04:25] LABS: BASOPHILS % (AUTO) 0.2 % (0.0-2.0); EOSINOPHILS % (AUTO) 0.1 % (0.0-6.0); HEMATOCRIT 32 % (33-45); HEMOGLOBIN 9.5 g/dL (11.5-14.8); LYMPHOCYTES # (AUTO) 1.4 K/uL (0.8-4.8); LYMPHOCYTES % (AUTO) 7.6 % (20.0-44.0); MEAN CORPUSCULAR HGB CONC 30 g/dl (31.0-36.0); MEAN CORPUSCULAR VOLUME 82 fL (82-100); MONOCYTES # (AUTO) 0.6 K/uL (0.1-1.30); MONOCYTES % (AUTO) 3.1 % (2.0-12.0); NEUTROPHILS # (AUTO) 16.2 K/uL (1.8-8.9); PLATELET COUNT (AUTO) 64 K/uL (150-450); RED BLOOD CELL COUNT(AUTO) 3.89 MIL/uL (4.0-5.2)
[2021-05-20] MEDS ORDERED: ACETAMINOPHEN 650 MG/SUPP.RECT RC PRN (04:30)
--- NOTE | 2021-05-20 04:40 | NUR ---
RN NOTES NOTED NO URINE OUTPUT FROM PT'S HAIDER SINCE TIME OF ADMISSION; PT'S BUN AND CREATININE LEVEL ARE HIGH AND PER 'S NOTE PT HAS BEEN DIAGNOSED WITH ACUTE RENAL FAILURE; INFORMED CALVIN MCKINLEY (SANDOR IRVING) ABOUT THIS CONCERN AND INFO. CALVIN MCKINLEY ORDERED BOLUS OF D51/2NS SLOWLY ON TOP OF MAIN IVF. WILL CARRY OUT ORDER. LINUX PROGRAMMER MADE AWARE.
[2021-05-20 04:44] LABS: ALBUMIN 1.5 g/dL (3.4-5.0); BILIRUBIN,TOTAL 0.8 mg/dL (0.2-1.0); CALCIUM, SERUM 7.9 mg/dL (8.5-10.1); CREATININE 3.7 mg/dL (0.6-1.3); MAGNESIUM 1.9 mg/dL (1.8-2.4); POTASSIUM 3.8 mmol/L (3.5-5.1); TOTAL PROTEIN, SERUM 5.5 g/dL (6.4-8.2)
[2021-05-20] MEDS ORDERED: IV D5/0.45 NACL 1,000 ML IV ONE ×2 (05:00→05:30)
[2021-05-20] MEDS ORDERED: IV D5/0.45 NACL 1,000 ML IV PRN ×2 (05:30)
--- NOTE | 2021-05-20 05:39 | NUR ---
RN NOTES RECEIVED CALL FROM LAB ;JUAN INFORMED CO2 LEVEL AT 5MMOL/L. WILL INFORM CALVIN MCKINLEY. SCRIPT SUPERVISOR MADE AWARE. CALVIN MCKINLEY (SANDOR IRVING) MADE AWARE AND ACKNOWLEDGED. AWAITING FOR ANY ORDER. Addendum: 05/20/21 at 0613 by SHAR HOLLINS RN @0610; CALVIN MCKINLEY ORDERED STAT ABG. Addendum: 05/20/21 at 0644 by SHAR HOLLINS RN @0640 CALVIN MCKINLEY (SANDOR IRVING) ORDERED THE FOLLOWING: BICARB DRIP 150ML/HR AND 1L NS BOLUS; PIGGY BACK TO MAIN IVF (D5 1/2NS @75ML/HR). ORDERS NOTED. Addendum: 05/20/21 at 0703 by SHAR HOLLINS RN @0700- FORWARDED ABG RESULT TO SANDOR IRVING.
[2021-05-20] MEDS ORDERED: NOREPINEPHRINE 4 MG/4 ML AMPUL IV ONE (05:50)
[2021-05-20 06:11] LABS: THYROID STIMULATING HORMONE 5.591 uIU/mL (0.358-3.74)
[2021-05-20 06:17] LABS: BAND % (MANUAL) 12 % (0.0-5.0); LYMPHOCYTES % (MANUAL) 4 % (16-48); MONOCYTES % (MANUAL) 3 % (0-11.0); NEUTROPHILS % (MANUAL) 80 (42-76); REACTIVE LYMPHOCYTES 1 % (0-0)
[2021-05-20 06:18] LABS: WHITE BLOOD COUNT (AUTO) 18.2 K/uL (4.3-11.0)
--- NOTE | 2021-05-20 06:54 | NUR ---
RN CLOSING NOTE: PATIENT REMAINS IN ROOM IN NO SIGNS OF RESPIRATORY DISTRESS, PATIENT STILL ONROOM AIR;TOLERATING WELL SATURATING @ >95% SP02. SAFETY MEASURES IMPLEMENTED, BED IN LOWEST POSITION, LOCKED, SIDE RAILS UP, CALL LIGHT WITHIN REACH. ALL NEEDS AND ORDERS ADDRESSED DURING THE SHIFT. IV ACCESS MAINTAINED INTACT, SECURED AND FLUSHING WELL. AMEDS GIVEN ORDERED & SCHEDULED ; PATIENT TOLERATED WELL. STILL WITH ONGOING LEVO @0.4MCG/KG/MIN; RUNNING , MONITORED AND ADJUSTED PER PROTOCOL. PATIENT KEPT CLEAN AND COMFORTABLE WITHIN THE SHIFT. PATIENT ENDORSED TO INCOMING SHIFT RN WITH STABLE VITAL SIGN AND FOR CONTINUITY OF CARE.
[2021-05-20 06:58] LABS: ABG BASE EXCESS -24.7 mmol/L; ABG OXYGEN SATURATION 97.2 % (92.0-98.5); ABG PCO2 10.6 mmHg (35.0-45.0); ABG PH 7.081 (7.350-7.450); ABG PO2 135.8 mmHg (75.0-100.0); AaDO2 1.2 mmHg; COHb 0.3 % (0.5-1.5); MetHb 0.5 % (0.0-1.5); O2Hb 96.4 % (94.0-97.0); SITE, ABG Right Radial; VENT MODE, BG ROOM AIR
[2021-05-20] MEDS ORDERED: Sodium Bicarbonate 100 MEQ in IV NS 0.9% 1,000 ML IV ONE (07:00)
--- NOTE | 2021-05-20 07:12 | NUR ---
WOUND CARE CONSULT: REVIEWED CHART, NURSING DOCUMENTATION AND PHOTOS WHICH INDICATE SACRAL SCARRING AND REDNESS WITH WOUND TO ABDOMEN, PRESENT ON ADMISSION. RECOMMENDATIONS MADE FOR SKIN PROTECTION. DISCUSSED WITH NURSING STAFF. FIRST STEP LOW AIRLOSS MATTRESS IS ON ORDER. SURGICAL CONSULT TO BE CALLED TO DR ILDEFONSO STARK AM., MD IN AGREEMENT WITH PLAN OF CARE. Addendum: 05/20/21 at 0736 by KELLY SAWYER WNDNU ADDITIONAL: PER CHART, THERE IS ALSO OPEN WOUND TO LOWER BUTTOCK, PRESENT ON ADMISSION. SURGICAL CONSULT REQUESTED.
[2021-05-20] MEDS ORDERED: IV NS 0.9% 1,000 ML IV ONE (07:30)
--- NOTE | 2021-05-20 07:30 | NUR ---
OPENING NOTE: REPORT RECEIVED FROM RIGO DUENAS. PT IS LETHARGIC, MOANING, NOT MAKING EYE CONTACT. PT IS ON ROOM AIR. LEVOPHED INFUSING AT 0.35 MCG/KG/MIN. RIGHT SIDE OF ABD IS LARGE AND FIRM WITH WOUND NOTED, PICTURE ON CHART FROM ADMISSION. PT IS PALE IN COLOR WITH GENERALIZED BRUISING. DR. CORNEJO NOTIFIED OF ABG RESULTS BY RT. PT CHECKED ON HOURLY AND PRN BY NURSING STAFF.
[2021-05-20] MEDS: ALBUTEROL FS 2.5 MG/3 ML VIAL.NEB NEB SCH ×3 (07:35→19:53)
[2021-05-20] MEDS ORDERED: SODIUM BICARBONATE SYR 50 MEQ/50 ML DISP.SYRIN IV STA (08:27)
[2021-05-20] MEDS ORDERED: SODIUM BICARBONATE SYR 50 MEQ/50 ML DISP.SYRIN ONE (08:29)
--- NOTE | 2021-05-20 08:54 | NUR ---
PT WAS INTUBATED AT THIS TIME BY DR FRIED. 7.5 23 AT THE [facility]. PT WAS SEDATED WITH MIKAYLA AND ETOMIDATE PRIOR TO INTUBATION PER MD ORDERS. BICARB GTT INFUSING AND 2 AMPS OF BICARB PUSH WERE GIVEN. CURRENT VENT SETTINGS ARE AC28, 550, 100% NO PEEP. NO URINE OUTPUT SO FAR THIS SHIFT.
[2021-05-20] MEDS ORDERED: AMLODIPINE BESYLATE 5 MG TABLET PO SCH (09:00)
[2021-05-20] MEDS ORDERED: OXCARBAZEPINE 150 MG TABLET PO SCH (09:00)
[2021-05-20] MEDS ORDERED: PROPOFOL 100 ML IV PRN (09:00)
[2021-05-20] MEDS: DULOXETINE HCL 20 MG CAPSULE.DR PO SCH (09:00)
[2021-05-20] MEDS: GABAPENTIN 100 MG CAPSULE PO SCH (09:00)
[2021-05-20] MEDS: THEOPHYLLINE ANHYDROUS 100 MG TAB.SR.12H PO SCH ×2 (09:00→21:44)
[2021-05-20] MEDS: Sodium Bicarbonate 100 MEQ in IV D5W 1,000 ML IV SCH ×2 (09:26→17:22)
--- NOTE | 2021-05-20 09:44 | NUR ---
PT ORALLY INTUBATED BY Kandis MCKINLEY WITH 7.5 ET-TUBE SECURED AT 23CM. EQUAL B/S NOTED POSITIVE CO2 DETECTION. PLACED ON ORDERED SETTINGS ALARMS SET AND AUDIBLE AMBUBAG AT HEAD OF BED. VENT PLUGGED INTO RED OUTLETS.
[2021-05-20] MEDS ORDERED: AMLODIPINE BESYLATE 5 MG TABLET GT SCH (09:59)
[2021-05-20] MEDS ORDERED: DULOXETINE HCL 20 MG CAPSULE.DR GT SCH (09:59)
[2021-05-20] MEDS ORDERED: PHARMACY TO CHANGE PO MEDS TO GT/NG XX PRN (10:00)
[2021-05-20] MEDS ORDERED: OXCARBAZEPINE 150 MG TABLET GT SCH (10:00)
[2021-05-20] MEDS: MEROPENEM 500 MG in IV NS 0.9% 50 ML IV SCH ×2 (10:24→21:43)
[2021-05-20] MEDS ORDERED: ACETAMINOPHEN 650 MG/20.3 ML UDC GT PRN (10:30)
[2021-05-20 11:13] LABS: ABG BASE EXCESS -19.7 mmol/L; ABG OXYGEN SATURATION 99.8 % (92.0-98.5); ABG PCO2 16.9 mmHg (35.0-45.0); ABG PH 7.198 (7.350-7.450); ABG PO2 526.8 mmHg (75.0-100.0); AaDO2 169.3 mmHg; COHb 0.2 % (0.5-1.5); MetHb 0.6 % (0.0-1.5); PEEP,BG 0 cm H2O; SITE, ABG Right Radial
[2021-05-20] MEDS ORDERED: ETOMIDATE 2 MG/ML VIAL IV ONE (11:38)
[2021-05-20] MEDS ORDERED: PIPERACILLIN /TAZOBACTAM 2.25 G in IV D5W 50 ML IV SCH ×2 (12:00)
[2021-05-20] MEDS: GABAPENTIN 100 MG CAPSULE GT SCH ×2 (12:14→17:00)
[2021-05-20] MEDS: NOREPINEPHRINE 32 MG in IV NS 0.9% 218 ML IV PRN ×2 (12:52→21:21)
--- NOTE | 2021-05-20 13:27 | NUR ---
RN SPOKE TO PT'S SISTER NATIVIDAD. UPDATED HER ON PT'S INTUBATION THIS AM. MESSAGE SENT TO DR ARTEAGA TO GIVEN NATIVIDAD A CALL [phone] PER HER REQUEST.
--- NOTE | 2021-05-20 16:21 | NUR ---
PER RN, PT IS UNSTABLE TO DO CT EXAM WITH ORAL CONTRAST. RN WILL CLARIFY WITH ORDERING MD REGARDING CT EXAM. PLEASE CALL RADIOLOGY EXT [phone] FOR ANY UPDATES REGARDING PT STATUS FOR EXAM.
[2021-05-20] MEDS ORDERED: DIATR MEGLU/DIATRIZOATE SODIUM 30 ML BOTTLE (GASTROGRAPHIN) ONE (16:45)
[2021-05-20 17:07] LABS: CREATININE 3.5 mg/dL (0.6-1.3); POTASSIUM 2.9 mmol/L (3.5-5.1)
--- NOTE | 2021-05-20 17:15 | NUR ---
DR. SHAY NOTIFIED OF POTASSIUM OF 2.9, CO2 OF 10. STATES HE WILL PUT ORDERS IN
[2021-05-20] MEDS: POTASSIUM CL. PREMIX PERIPHER. 50 ML IV SCH ×4 (18:31→22:00)
[2021-05-20] MEDS: POTASSIUM CHLORIDE IV SCH ×2 (18:31→22:00)
[2021-05-20] MEDS: SODIUM BICARBONATE IV SCH ×2 (18:31→22:00)
[2021-05-20] MEDS: D5W IV SCH ×2 (18:31→22:00)
--- NOTE | 2021-05-20 19:30 | NUR ---
END OF SHIFT NOTE: PT IS ON BICARB GTT PER MD ORDERS. PROPOFOL INFUSED AT LOW RATE MOST OF DAY, BUT TURNED OFF AT 1630 D/T PT UNRESPONSIVE. LEVOPHED INFUSING PER MD ORDERS. PER PREVIOUSLY NOTED PT WAS INTUBATED AT 0854 THIS AM. COVID PCR RESULTS CAME BACK NEGATIVE THIS SHIFT. PENDING CT ABD WITH GASTROGRAFFIN TONIGHT, ENDORSED TO DEVICE SALES CONSULTANT. PT CHECKED ON HOURLY AND PRN BY NURSING STAFF.
--- NOTE | 2021-05-20 19:30 | NUR ---
RN OPENING NOTES: RECEIVED PT IN BED IN NO S/SX OF ACUTE DISTRESS AT THIS TIME; ON MECHANICAL VENT; SETTINGS PRESCRIBED; PT TOLERATED WELL. AMBU BAG AT BED SIDE ALARMS SET PER PROTOCOL AND AUDIBLE. VENT PLUGGED IN TO RED OUTLET. PATIENT ON TELE MONITORING READING SINUS TACHY HR IS @108 AT THE TIME OF RECEIVED. PATIENT ON NPO. R IJ 3 LUMEN AND R U MIDLINE#18 BOTH PATENT, INTACT AND FLUSHING WELL; NO S/S OF INFECTION OR INFILTRATION. WITH IV FLUID (BICARB DRIP) RUNNING ORDERED. PT HAS A RUNNING LEVOPHED RECEIVED @0.5MCG/KG/MIN MONITORED AND TITRATED PER PROTOCOL. HAIDER CATH IN PLACE, NO URINE OUTPUT AT THIS TIME. WITH BILATERAL SOFT RESTRAINTS IN PLACED, MONITORED AND ASSESSED PER PROTOCOL. SAFETY MEASURES HAVE BEEN PROVIDED AND IMPLEMENTED. PATIENT BED ALARM IS ON. HEAD OF BED ELEVATED. BED IS LOCKED, IN LOWEST POSITION AND SIDE RAILS UP. CALL LIGHT WITHIN REACH OF THE PATIENT. APPLICABLE ISOLATION PRECAUTIONS IN PLACE. WILL CONTINUE TO MONITOR AND REASSESS FOR ANY CHANGES AND WILL CARRY OUT ANY ONGOING AND ACTIVE MD ORDER.
--- NOTE | 2021-05-20 20:14 | NUR ---
RN NOTES FACILITATED OGT INSERTION 60CM IN LIP LINE; VERIFIED PLACEMENT VIA AUSCULTATION AND RE-CONFIRMED BY ANOTHER RN (HENRIQUE LYNNE) VIA AUSCULTATION. OUTPUT NOTED :250CC GASTRIC CONTENT; BLACK IN COLOR. WILL INFORM CALVIN MCKINLEY (SANDOR IRVING). STAMP ANALYST MADE AWARE.
--- NOTE | 2021-05-20 20:15 | NUR ---
RN NOTES FACILITATED OGT INSERTION 60CM IN LIP LINE; 250CC GASTRIC CONTENT OUTPUT; BLACK IN COLOR. INFORMED CALVIN MCKINLEY (SANDOR IRVING). CONSTRUCTION ESTIMATOR MADE AWARE. Addendum: 05/20/21 at 2030 by SHAR HOLLINS RN CALVIN MCKINLEY (SANDOR IRVING) ORDERED LIS SUCTION (MONITOR FOR BRIGHT RED OUTPUT OR IF OUTPUT INCREASES SIGNIFICANTLY). AND PROTONIX 40MG IV BID. RN ACKNOWLEDGED.
--- NOTE | 2021-05-20 20:20 | NUR ---
RN NOTES CALLBACK DONE TO PT'S SISTER NATIVIDAD-[phone]; PROVIDED GENERAL UPDATES AND CURRENT VS. ASSURED THAT WILL PROVIDE SIGNIFICANT CHANGES , NATIVIDAD ACKNOWLEDGED.
[2021-05-20] MEDS ORDERED: PANTOPRAZOLE 40 MG VIAL IV SCH (21:00)
--- NOTE | 2021-05-20 21:00 | NUR ---
RN NOTES RN AND SUPERVISOR REFINING ASSESSED PT IN PREPARATION FOR TRANSPORT FOR CT @2230; V/S CURRENTLY UNSTABLE, RESPIRATION AT 28-30s, PT EASILY DESATs EVEN IN SLIGHT REPOSITIONING AND MOVEMENT, PRESSOR (LEVO) ALMOST MAX & STILL BP PLAYS HIGH & LOW; MOSTLY ON LOWER SIDE 90s SBP. INFORMED CALVIN MCKINLEY (ARISTIDES,SANDOR) AND INFORMED PT MIGHT BE UNSTABLE FOR TRANSPORT FOR CT; RATIONAL PROVIDED. CALVIN MCKINLEY AGREED. WILL ENDORSE TO AM SHIFT FOR FOLLOW THROUGH. SUPERVISOR REFINING WELL AWARE. WILL CONTINUE TO MONITOR AND ASSESS THROUGHOUT THE SHIFT. WILL INFORM PT'S SISTER FOR UPDATE. WILL INFORM RT AND RADIOLOGY TEAM.
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
--- NOTE | 2021-05-20 22:10 | NUR ---
RN NOTES CALLED PT'S SISTER (NATIVIDAD) AND PROVIDED UPDATE ; CT RESCHEDULED FOR AMY AM DUE TO CURRENT STATUS OF PT. INFORMED HER THAT MD IS AWARE. NATIVIDAD ACKNOWLEDGED.
[2021-05-20] MEDS ORDERED: PHENYLEPHRINE 50 MG in IV NS 0.9% 245 ML IV PRN (23:00)
[2021-05-20] MEDS ORDERED: PHENYLEPHRINE 10 MG/ML VIAL ONE (23:02)
--- NOTE | 2021-05-20 23:40 | NUR ---
RN NOTES COMMUNICATED WITH CALVIN MCKINLEY (SANDOR IRVING) PROVIDED UPDATES ABOUT PT; 2ND PRESSOR INITIATED; STILL ON LOW BP ( UNABLE TO GET CONSISTENT BP READINGS); ALSO NOTED VAGINAL DISCHARGE MODERATE IN AMOUNT CLOUDY RED IN COLOR AND STICKY IN CONSISTENCY. CALVIN MCKINLEY ACKNOWLEDGED. ORDERS GIVEN 1L BOLUS D5W TO PIGGYBACK IN MIVF ,STAT UA AND A LINE.RN ACKNOWLEDGED AND FUEL INJECTION SERVICER MADE AWARE.
[2021-05-21] VITALS: BP 67/50
[2021-05-21] MEDS ORDERED: IV D5W 1,000 ML IV ONE
--- NOTE | 2021-05-21 00:01 | NUR ---
LACE INSPECTORWARP DRAWER GAS FITTER APPRENTICE TALKED TO PT'S SISTER NATIVIDAD /PHONE [phone]/ UPDATED PT CONDITION & PROGNOSIS. NATIVIDAD TALKED TO OTHER FAMILY MEMBERS, CALLED BACK TO ICU AND FAMILY AGREED TO PUT PT ON DNR CODE. ARISTIDES SCHERER, SANDOR RUBBER DOWN WAS NOTIFIED AND GAVE ORDER TO CHANGE CODE STATUS FROM FULL TO DNR.
[2021-05-21 00:30] VITALS: BP 38/25
--- NOTE | 2021-05-21 00:30 | NUR ---
RN NOTES PT ENDORSED TO CRATE TIER FOR VJ ; PRIMARY RN ON BREAK
--- NOTE | 2021-05-21 01:00 | NUR ---
RN NOTES WEBSPHERE PORTAL DEVELOPER(ED,RN) NOTIFIED AND INFORMED PRIMARY RN (AFTER BREAK) THAT PT @0040; PER WEBSPHERE PORTAL DEVELOPER WHO IS AT BEDSIDE PT NOTED HR SLOWING DOWN & WENT ASYSTOLE ON COCONUT COOKER ; BP UNAPPRECIATED, NO PALPABLE PULSES, NO AUDIBLE HEART TONE, PUPILS FIXED AND DILATED;WEBSPHERE PORTAL DEVELOPER PRONOUNCED @0040. PER WEBSPHERE PORTAL DEVELOPER CALVIN MCKINLEY AND DELMIS SUP, AND ADMITTING NOTIFIED ABOUT PT'S . Addendum: 05/21/21 at 0154 by SHAR HOLLINS RN @ALSO PER WEBSPHERE PORTAL DEVELOPER FAMILY WERE NOTIFIED ABOUT PT'S .
--- NOTE | 2021-05-21 01:33 | NUR ---
RN NOTES CALLED [facility] SPOKE TO SHELL; NOTIFIED PT'S . INFO PROVIDED. CASE # [id number]. PLANT ANATOMIST MADE AWARE.
[2021-05-21] MEDS ORDERED: VANCOMYCIN 1 GM in IV D5W 250 ML IV SCH (16:00)
== END 2021-05-21 00:40 | DRG 720 ==
LOC: ER 13:39 → ICU 21:06
PROVIDERS: ADMIT Internal Medicine; ATTEND Internal Medicine
PROC: 5A1935Z Respiratory Ventilation, Less than 24 Consecutive Hours (ICD-10-PCS; principal; 2021-05-20)
PROC: 0BH17EZ Insertion of Endotracheal Airway into Trachea, Via Natural or Artificial Opening (ICD-10-PCS; 2021-05-20)
DX: A41.9 Sepsis, unspecified organism (principal); N17.0 Acute kidney failure with tubular necrosis; J96.00 Acute respiratory failure, unspecified whether with hypoxia or hypercapnia; R65.21 Severe sepsis with septic shock; E43 Unspecified severe protein-calorie malnutrition; G92.8 Other toxic encephalopathy; E87.2 Acidosis; D69.6 Thrombocytopenia, unspecified; D63.8 Anemia in other chronic diseases classified elsewhere; L03.311 Cellulitis of abdominal wall; I67.2 Cerebral atherosclerosis; E78.5 Hyperlipidemia, unspecified; E27.9 Disorder of adrenal gland, unspecified; Z68.39 Body mass index [BMI] 39.0-39.9, adult; Z20.822 Contact with and (suspected) exposure to COVID-19; G62.9 Polyneuropathy, unspecified; J44.9 Chronic obstructive pulmonary disease, unspecified; K21.9 Gastro-esophageal reflux disease without esophagitis; F32.9 Major depressive disorder, single episode, unspecified; F41.9 Anxiety disorder, unspecified; I10 Essential (primary) hypertension; Z88.8 Allergy status to other drugs, medicaments and biological substances; Z91.013 Allergy to seafood; Z79.51 Long term (current) use of inhaled steroids; Z79.899 Other long term (current) drug therapy; N39.0 Urinary tract infection, site not specified; E66.01 Morbid (severe) obesity due to excess calories; Z87.440 Personal history of urinary (tract) infections; Z91.19 Patient's noncompliance with other medical treatment and regimen; L98.499 Non-pressure chronic ulcer of skin of other sites with unspecified severity; K43.9 Ventral hernia without obstruction or gangrene; N20.0 Calculus of kidney; D17.9 Benign lipomatous neoplasm, unspecified; L98.9 Disorder of the skin and subcutaneous tissue, unspecified
CPT/HCPCS: 36415; 36600; 70450-TC; 71045-TC; 80048-TC; 80053-TC; 80061-TC; 80076-TC; 82140-TC; 82272-TC; 83605-TC; 83735-TC; 84100-TC; 84439-TC; 84443-TC; 84484-TC; 85025-TC; 85730-TC; 87040-TC; 87081-TC; 87186-TC; A6403; C9113; G0378; J1953; J2185; J2370; J2543; J3370; J3480; J3490; J7030; J7050; J7060; J7070; Q9963; U0003